=== PATIENT | female | born 1955 | race Caucasian/White ===

== ENCOUNTER → 2018-02-12 10:32 | Outpatient (CLI) | payer MEDICARE, MEDICAID, SELFPAY | PROVIDERS: Visit Provider Family Medicine | DX: R35.8 Other polyuria (principal) | CPT/HCPCS: 87086 ==

== ENCOUNTER 2018-04-27 13:10 | Emergency (ER) | payer MEDICARE, MEDICAID, SELFPAY ==
[2018-04-27 13:11] VITALS: BP 120/80; PULSE 84; RESP 16; TEMP 36; O2SAT 97; BMI 34.9
--- NOTE | 2018-04-27 13:54 | RAD_ITS ---
STUDY: X-RAY CHEST REASON FOR EXAM: Female, 62 years old. Cough. TECHNIQUE: PA and lateral views of the chest. COMPARISON: 25 Apr 2016 FINDINGS: The lungs are clear and expanded. There is no demonstrated pleural abnormality. Normal size heart. Normal mediastinum and jennifer. Normal visualized pulmonary arteries. Normal visualized aortic arch and descending thoracic aorta. Normal visualized thoracic spine. Normal visualized ribs, clavicles, and shoulders. There is no demonstrated abnormality of the visualized soft tissue structures of the upper abdomen. RAD/Chest PA and Lateral IMPRESSION: No evidence of acute cardiopulmonary process with no significant change from previous exam. Electronically Signed: Bart Oneil DO at 15:10 EDT , Service support ,
--- NOTE | 2018-04-27 13:55 | EKG12_ITS ---
Test Reason : SOB Blood Pressure : / mmHG Vent. Rate : 076 BPM Atrial Rate : 076 BPM P-R Int : 158 ms QRS Dur : 070 ms QT Int : 440 ms P-R-T Axes : 044 022 037 degrees QTc Int : 495 ms Normal sinus rhythm Low voltage QRS Nonspecific T wave abnormality Abnormal ECG Confirmed by YOLANDA PETERSON, CHRISSY ([id number]), multimedia editor AURE DIAZ ([id number]) on 04/30/2018 2:39:52 PM Referred By: KATHY Confirmed By:CHRISSY GUERRERO MD
--- NOTE | 2018-04-27 13:56 | ED.VIS.GEN ---
History of Present Illness Chief Complaint: Shortness of Breath Informant: Patient Onset: Days - 3 Context: Gradual Onset Timing: Continuous Quality: trouble breathing Location: chest Current Severity: Mild Maximum Severity: Mild Worsened by: coughing Relieved by: nothing Associated Symptoms: [employer] cough, hoarse of voice, mild sore/scratchy throat Narrative: History of chronic bronchitis. Started getting short of breath this morning, but the cough is been significant along with bronchospasm. - Past Medical History (1) Chronic bronchitis Status: Chronic (2) GERD (gastroesophageal reflux disease) Status: Chronic Past Medical History - Allergies and Home Meds Allergies/Adverse Reactions: Allergies amoxicillin trihydrate [From Augmentin] Allergy (Verified 04/03/17 10:57) Diarrhea codeine Allergy (Verified 04/03/17 10:57) Hives latex Allergy (Verified 04/03/17 10:57) Rash potassium clavulanate [From Augmentin] Allergy (Verified 04/03/17 10:57) Diarrhea niacin Adverse Reaction (Verified 04/03/17 10:57) Other Pukkqod-Nea-Shu Reductase Inhibitor Adverse Reaction (Verified 04/03/17 10:57) Other PAIN IN JOINTS Home Medications: Home Medications Medication Instructions Recorded Duloxetine Hcl [Cymbalta] 60 mg PO DAILY 03/18/14 Ibuprofen [Motrin] 600 mg PO PRN PRN 03/18/14 Cholecalciferol (Vitamin D3) 5,000 unit PO DAILY 03/26/17 [Vitamin D3] Cyanocobalamin [Vitamin B12] 1,000 mcg IM Q30D 03/26/17 Furosemide 40 mg PO DAILY 03/26/17 Hydrocodone/Acetaminophen [Vicodin 1 - 2 tablet PO Q4H PRN PRN #12 03/30/17 5-300 mg Tablet] tablet Lorazepam [Ativan] 0.5 mg PO BID PRN PRN 03/30/17 Naproxen [Naprosyn] 500 mg PO BID PRN #20 tablet 03/30/17 Omeprazole [Prilosec] 40 mg PO DAILY 03/30/17 Docusate Sodium [Colace] 100 mg PO DAILY PRN PRN 04/07/17 Lisinopril [Zestril] 20 mg PO DAILY 04/07/17 Albuterol Inhaler [Ventolin Hfa] 1 - 2 puff INHALATION Q4H PRN PRN 04/27/18 #1 inhaler Escitalopram Oxalate [Lexapro] 5 mg PO DAILY 04/27/18 Prednisone [Deltasone] 40 mg PO DAILY #10 tab 04/27/18 levoFLOXacin tablet [Levaquin] 500 mg PO DAILY #7 tab 04/27/18 Primary Care Physician: Ashli Snowden DO [Primary Care Provider] - Smoking Status: Former smoker Review of Systems All systems negative except as indicated General: Denies: Chills, Fever Eyes: Denies: Visual changes - bilaterally ENT: Reports: Sore throat, - - Hoarseness. Denies: Bilateral ear pain Respiratory: Reports: Dyspnea, Cough. Denies: Sputum, Orthopnea Gastrointestinal: Denies: Abdominal pain, Nausea, Vomiting, Diarrhea, Constipation, Melena, Hematochezia Musculoskeletal: Denies: Neck pain, Back pain, Swelling, Extremity Pain Physical Exam Vital Signs/Narrative: Vital Signs Temp Pulse Resp BP Pulse Ox 04/27/18 13:11 96.8 F L 84 16 120/80 97 Inital Vital Signs reviewed: Yes General: Well nourished, Well developed, - - Well-appearing no acute distress. Holding a drink, sitting on cot. Head: Normocephalic, Atraumatic Eyes: Perrl, EOMI ENT: Moist mucous membranes, No rhinorrhea, TM's clear, - - Mild diffuse posterior oropharyngeal erythema. No exudates or asymmetry.. Negative for: Sinus tenderness Neck: Supple, No lymphadenopathy, No JVD Cardiovascular: Regular rate, Regular rhythm Respiratory: No distress, CTA bilaterally, Chest nontender, Diminished - Throughout. Extremities: Nontender, No edema Skin: Normal color, No rash Neurological: Alert, Oriented x3, Cranial nerves II-XII grossly intact, Normal Strength, Normal Sensation, Normal Gait Psychological: Normal affect Diagnostic/Tx/Re-eval Clinical Impression(s) from Imaging Studies Chest X-Ray 04/27/18 13:54 IMPRESSION: No evidence of acute cardiopulmonary process with no significant change from previous exam. Electronically Signed: Bart Oneil DO at 15:10 EDT , Service support , - Rhythm Strip Rhythm Strip: Sinus Rhythm Rate: 75 Ectopy: None - EKG 1 Interpretation: Sinus Rhythm, No Acute Injury Pattern, Non-Specific ST Changes - Unchanged compared with prior, precordial leads - Medical Decision Making After breathing treatment patient is feeling improved with minimal chest discomfort now. Her EKG is nonspecific but unchanged and I do not think this is cardiac in etiology. With her chronic bronchitis, I think it would be reasonable to put her on broad-spectrum antibiotics to prevent superinfection and pneumonia. She does not have that now according to chest x-ray. Her vital signs are normal and she is not hypoxic. I think outpatient treatment is reasonable. Will place her on Levaquin, she was given an initial dose of prednisone here, and will also prescribe her that along with an albuterol inhaler to use as needed. She is comfortable with that plan. ED Disposition - Plan for ED Patient: Disposition: Home or Assisted Living Chief Complaint: Shortness of Breath Diagnosis: Acute exacerbation of chronic bronchitis Instructions: Acute Bronchitis, What Is Chronic Bronchitis? Prescriptions: Albuterol Inhaler [Ventolin Hfa] 1 - 2 puff INHALATION Q4H PRN PRN #1 inhaler PRN Reason: Wheezing levoFLOXacin tablet [Levaquin] 500 mg PO DAILY #7 tab Prednisone [Deltasone] 40 mg PO DAILY #10 tab Referrals: Ashli Snowden DO [Primary Care Provider] - 1 Week if not improving
--- NOTE | 2018-04-27 14:02 | ED.DCSUM_ITS ---
History of Present Illness Chief Complaint: Shortness of Breath Informant: Patient Onset: Days - 3 Context: Gradual Onset Timing: Continuous Quality: trouble breathing Location: chest Current Severity: Mild Maximum Severity: Mild Worsened by: coughing Relieved by: nothing Associated Symptoms: [employer] cough, hoarse of voice, mild sore/scratchy throat Narrative: History of chronic bronchitis. Started getting short of breath this morning, but the cough is been significant along with bronchospasm. - Past Medical History (1) Chronic bronchitis Status: Chronic (2) GERD (gastroesophageal reflux disease) Status: Chronic Past Medical History - Allergies and Home Meds Allergies/Adverse Reactions: Allergies amoxicillin trihydrate [From Augmentin] Allergy (Verified 04/03/17 10:57) Diarrhea codeine Allergy (Verified 04/03/17 10:57) Hives latex Allergy (Verified 04/03/17 10:57) Rash potassium clavulanate [From Augmentin] Allergy (Verified 04/03/17 10:57) Diarrhea niacin Adverse Reaction (Verified 04/03/17 10:57) Other Wgjahrt-Lyu-Tvk Reductase Inhibitor Adverse Reaction (Verified 04/03/17 10:57) Other PAIN IN JOINTS Home Medications: Home Medications Medication Instructions Recorded Duloxetine Hcl [Cymbalta] 60 mg PO DAILY 03/18/14 Ibuprofen [Motrin] 600 mg PO PRN PRN 03/18/14 Cholecalciferol (Vitamin D3) 5,000 unit PO DAILY 03/26/17 [Vitamin D3] Cyanocobalamin [Vitamin B12] 1,000 mcg IM Q30D 03/26/17 Furosemide 40 mg PO DAILY 03/26/17 Hydrocodone/Acetaminophen [Vicodin 1 - 2 tablet PO Q4H PRN PRN #12 03/30/17 5-300 mg Tablet] tablet Lorazepam [Ativan] 0.5 mg PO BID PRN PRN 03/30/17 Naproxen [Naprosyn] 500 mg PO BID PRN #20 tablet 03/30/17 Omeprazole [Prilosec] 40 mg PO DAILY 03/30/17 Docusate Sodium [Colace] 100 mg PO DAILY PRN PRN 04/07/17 Lisinopril [Zestril] 20 mg PO DAILY 04/07/17 Albuterol Inhaler [Ventolin Hfa] 1 - 2 puff INHALATION Q4H PRN PRN 04/27/18 #1 inhaler Escitalopram Oxalate [Lexapro] 5 mg PO DAILY 04/27/18 Prednisone [Deltasone] 40 mg PO DAILY #10 tab 04/27/18 levoFLOXacin tablet [Levaquin] 500 mg PO DAILY #7 tab 04/27/18 Primary Care Physician: Ashli Snowden DO [Primary Care Provider] - Smoking Status: Former smoker Review of Systems All systems negative except as indicated General: Denies: Chills, Fever Eyes: Denies: Visual changes - bilaterally ENT: Reports: Sore throat, - - Hoarseness. Denies: Bilateral ear pain Respiratory: Reports: Dyspnea, Cough. Denies: Sputum, Orthopnea Gastrointestinal: Denies: Abdominal pain, Nausea, Vomiting, Diarrhea, Constipation, Melena, Hematochezia Musculoskeletal: Denies: Neck pain, Back pain, Swelling, Extremity Pain Physical Exam Vital Signs/Narrative: Vital Signs Temp Pulse Resp BP Pulse Ox 04/27/18 13:11 96.8 F L 84 16 120/80 97 Inital Vital Signs reviewed: Yes General: Well nourished, Well developed, - - Well-appearing no acute distress. Holding a drink, sitting on cot. Head: Normocephalic, Atraumatic Eyes: Perrl, EOMI ENT: Moist mucous membranes, No rhinorrhea, TM's clear, - - Mild diffuse posterior oropharyngeal erythema. No exudates or asymmetry.. Negative for: Sinus tenderness Neck: Supple, No lymphadenopathy, No JVD Cardiovascular: Regular rate, Regular rhythm Respiratory: No distress, CTA bilaterally, Chest nontender, Diminished - Throughout. Extremities: Nontender, No edema Skin: Normal color, No rash Neurological: Alert, Oriented x3, Cranial nerves II-XII grossly intact, Normal Strength, Normal Sensation, Normal Gait Psychological: Normal affect Diagnostic/Tx/Re-eval Clinical Impression(s) from Imaging Studies Chest X-Ray 04/27/18 13:54 IMPRESSION: No evidence of acute cardiopulmonary process with no significant change from previous exam. Electronically Signed: Bart Oneil DO at 15:10 EDT , Service support , - Rhythm Strip Rhythm Strip: Sinus Rhythm Rate: 75 Ectopy: None - EKG 1 Interpretation: Sinus Rhythm, No Acute Injury Pattern, Non-Specific ST Changes - Unchanged compared with prior, precordial leads - Medical Decision Making After breathing treatment patient is feeling improved with minimal chest discomfort now. Her EKG is nonspecific but unchanged and I do not think this is cardiac in etiology. With her chronic bronchitis, I think it would be reasonable to put her on broad-spectrum antibiotics to prevent superinfection and pneumonia. She does not have that now according to chest x-ray. Her vital signs are normal and she is not hypoxic. I think outpatient treatment is reasonable. Will place her on Levaquin, she was given an initial dose of prednisone here, and will also prescribe her that along with an albuterol inhaler to use as needed. She is comfortable with that plan. ED Disposition - Plan for ED Patient: Disposition: Home or Assisted Living Chief Complaint: Shortness of Breath Diagnosis: Acute exacerbation of chronic bronchitis Instructions: Acute Bronchitis, What Is Chronic Bronchitis? Prescriptions: Albuterol Inhaler [Ventolin Hfa] 1 - 2 puff INHALATION Q4H PRN PRN #1 inhaler PRN Reason: Wheezing levoFLOXacin tablet [Levaquin] 500 mg PO DAILY #7 tab Prednisone [Deltasone] 40 mg PO DAILY #10 tab Referrals: Ashli Snowden DO [Primary Care Provider] - 1 Week if not improving
[2018-04-27 14:16] VITALS: PULSE 78; RESP 18
[2018-04-27] MEDS: Ipratropium/Albuterol Sulfate 3 ML AMPUL.NEB INHALATION (14:16)
[2018-04-27] MEDS: predniSONE 20 MG Tablet 60 MG PO (14:16)
[2018-04-27 16:04] VITALS: PULSE 89; RESP 22; O2SAT 97
== END 2018-04-27 16:05 | disposition home or self-care (01) ==
PROVIDERS: Emergency Provider Emergency Medicine; Family Provider Family Medicine; PCP Family Medicine
DX: J20.9 Acute bronchitis, unspecified (principal); J42 Unspecified chronic bronchitis; Z79.899 Other long term (current) drug therapy; K21.9 Gastro-esophageal reflux disease without esophagitis; Z87.891 Personal history of nicotine dependence
CPT/HCPCS: 71046; 93005; 94640; 99283

== ENCOUNTER → 2018-05-05 11:55 | Outpatient (CLI) | payer MEDICARE, MEDICAID, SELFPAY ==
--- NOTE | 2018-05-05 11:55 | DT_ITS ---
This patient was seen during an EMR downtime May 05, 2018 - May 12, 2018. This patient may have a combination of paper and electronic documentation or all paper documentation. All documentation is viewable within the e-chart portion of [facility] for each patient visit.
[2018-05-11 02:52] LABS: ALB/GLOB Ratio 1.1 RATIO (0.9-2.4); AST(SGOT) 14 U/L (15-37); Alanine Aminotransfer ALT/SGPT 22 U/L (13-56); Alkaline Phosphatase 106 U/L (45-117); BUN 13 mg/dL (7-18); BUN/Creat Ratio 12.5 RATIO (10-20); Calcium,Total 8.5 mg/dL (8.5-10.1); Creatinine, Serum 1.04 mg/dL (0.55-1.02); EST Glomerular Filtration Rate 57 mL/min (>60); Est Glom Filt Rate - Afr Amer 69 mL/min (>60); Globulin 3.5 g/dL (2.2-4.2); Glucose 92 mg/dL (74-106); Protein, Total 7.5 g/dL (6.4-8.2); Sodium Level 143 mmol/L (136-145)
[2018-05-11 02:53] LABS: Anion Gap 9 (5-15); Chloride 103 mmol/L (98-107); Potassium 3.6 mmol/L (3.5-5.1); T4 Free Direct 1.06 ng/dL (0.76-1.46); Thyroid Stim Hormone (TSH) 1.91 uIU/mL (0.358-3.74)
== END ==
PROVIDERS: Family Provider Family Medicine; PCP Family Medicine; Visit Provider Family Medicine
DX: R94.6 Abnormal results of thyroid function studies (principal); R73.03 Prediabetes; I10 Essential (primary) hypertension
CPT/HCPCS: 36415; 80053; 84439; 84443; 84480

== ENCOUNTER 2018-11-10 10:58 | Emergency (ER) | payer MEDICARE, MEDICAID, SELFPAY ==
[2018-11-10 11:03] VITALS: BP 133/93; PULSE 118; RESP 24; TEMP 36.9; O2SAT 100; BMI 34.7
--- NOTE | 2018-11-10 11:24 | ED.VISSUMM ---
- ER Visit Summary Date of Service: 11/10/18 Chief Complaint: Back injury History of Present Illness: The patient is a 63 F who presents for a back injury prior to arrival. Patient was wearing socks and her right foot slipped on the floor, causing her leg to slip outward from her. She almost fell but was able to catch herself on a handle on the wall. She felt a pop in her back and has been having low back pain radiating into the right buttock and leg down to the knee. Pain is in the thigh and the back of the leg. She denies any bowel or bladder incontinence or retention. No weakness or numbness in the leg. No prior history of back injury or back problems. Patient is on [place] as needed for arthritis. History of right total knee replacement, hypertension and GERD. Physical Examination: Vital signs: afebrile, hemodynamically stable, no hypoxia on room air General: well nourished, well developed, in no distress, able to ambulate down the patel without difficulty Skin: warm, dry, no rash, no pallor HEENT: normocephalic and atraumatic; PERRL, EOMI, moist mucous membranes Cardiovascular: regular rate and rhythm without murmurs, no peripheral edema, 2+ pulses all distal extremities Respiratory: No increased work of breathing, lungs are clear to auscultation bilaterally, no rales, rhonchi or wheezing Abdominal: Abdomen is soft, nontender with normoactive bowel sounds, no guarding or rebound, no masses Back: Midline tenderness in the thoracic or lumbar region, no deformities or step-offs, right paraspinal tenderness in the lumbar region and the buttock. Straight leg raise is negative bilaterally. MSK: Moves all extremities, no deformities, normal strength and symmetric Neuro: Awake and alert, oriented ?4. No facial droop, sensation and motor function intact and symmetric Test Results: [] Emergency Department Course and Treatment: Patient presents for a lumbosacral strain without any mechanism of injury or findings on examination that would be concerning for a vertebral fracture or spinal cord compression. Patient was given Flexeril and anti-inflammatories for pain. She was given a prescription for the same. We discussed that if she does take any [place], she is not to take it at the same time as the Flexeril. Patient will talk to her primary care doctor if she feels she needs further [place] for this acute back injury in the context of her chronic arthritic pain. Patient agreed with this plan was discharged home neurovascularly intact. Treatment Plan: [] Disposition: [] Impression: Right lumbosacral strain This note was generated with [employer] dictation software. It may contain incorrect words, spelling, and punctuation that were not noted in review of the chart prior to signing ED Disposition - Plan for ED Patient: Chief Complaint: Back Referrals: Ashli Snowden DO [Primary Care Provider] -
[2018-11-10] MEDS: Ibuprofen 600 MG Tablet PO (11:32)
[2018-11-10 11:50] VITALS: BP 129/112; PULSE 109; RESP 16; O2SAT 96
== END 2018-11-10 11:51 | disposition home or self-care (01) ==
LOC: ED 11:37
PROVIDERS: Emergency Provider Emergency Medicine; Family Provider Family Medicine; PCP Family Medicine
DX: S39.012A Strain of muscle, fascia and tendon of lower back, initial encounter (principal); W18.40XA Slipping, tripping and stumbling without falling, unspecified, initial encounter; Y93.9 Activity, unspecified; Y92.9 Unspecified place or not applicable; Y99.9 Unspecified external cause status; I10 Essential (primary) hypertension; M19.90 Unspecified osteoarthritis, unspecified site; K21.9 Gastro-esophageal reflux disease without esophagitis; Z79.52 Long term (current) use of systemic steroids; Z79.899 Other long term (current) drug therapy; Z96.651 Presence of right artificial knee joint
CPT/HCPCS: 99283

== ENCOUNTER → 2018-12-15 09:23 | Outpatient (CLI) | payer MEDICARE, MEDICAID, SELFPAY ==
[2018-12-15 12:04] LABS: Absolute Lymphocyte Count 2.33 X10^3/ul (0.83-4.51); Absolute Neutrophil Count 4.7 X10^3/uL (2.0-7.7); Basophil# 0.02 X10^3/uL; Basophil% 0.3 % (0-1); Eosinophil# 0.23 X10^3/uL; Hematocrit 44.9 % (37-47); Hemoglobin 14.7 g/dl (12.0-15.0); Lymphocyte # 2.33 X10^3/ul (4.0); Lymphocyte % 30.5 % (19-41); Mean Corp Hgb Conc 32.7 g/gl (32-36); Mean Corpuscular Hgb 31.1 pg (27.0-32.0); Mean Corpuscular Volume 95.1 fL (81-99); Mean Platelet Vol. 13.7 fl (6.2-12.0); Monocyte# 0.37 X10^3/uL; Monocyte% 4.8 % (0-10); Neutrophil # 4.67 X10^3/uL (2.7-7.7); Platelet Count 206 K/mm3 (150-450); RBC Distribution Width CV 14.7 % (11.6-14.6); RBC Distribution Width SD 50.6 fl (35.1-43.9); Red Blood Count 4.72 M/mm3 (4.2-5.4); White Blood Count 7.7 K/mm3 (4.4-11.0)
[2018-12-15 12:19] LABS: AST(SGOT) 16 U/L (15-37); Alanine Aminotransfer ALT/SGPT 23 U/L (13-56); Albumin, Serum 3.7 g/dL (3.2-5.0); Alkaline Phosphatase 112 U/L (45-117); Anion Gap 10 (5-15); BUN 16 mg/dL (7-18); BUN/Creat Ratio 15.5 RATIO (10-20); Calcium,Total 8.4 mg/dL (8.5-10.1); Chloride 105 mmol/L (98-107); Cholesterol 317 mg/dL (200); Creatinine, Serum 1.03 mg/dL (0.55-1.02); EST Glomerular Filtration Rate 57 mL/min (>60); Est Glom Filt Rate - Afr Amer 70 mL/min (>60); Globulin 3.7 g/dL (2.2-4.2); Glucose 91 mg/dL (74-106); High Density Lipoprotein 38 mg/dL; POSITIVE COUNT NO; POSITIVE DIFFERENTIAL NO; POSITIVE MORPHOLOGY NO; Potassium 3.6 mmol/L (3.5-5.1); Protein, Total 7.4 g/dL (6.4-8.2); Sodium Level 141 mmol/L (136-145); Thyroid Stim Hormone (TSH) 2.69 uIU/mL (0.358-3.74); Triglycerides 330 mg/dL; Very Low Density Lipoprotein 66 mg/dL (5-40)
[2018-12-15 12:30] LABS: Vitamin B12 > 2000 pg/mL (211-911); Vitamin D,25 Hydroxy 72.9 ng/mL (29.95-100.01)
== END ==
PROVIDERS: Family Provider Family Medicine; PCP Family Medicine; Visit Provider Family Medicine
DX: R73.03 Prediabetes (principal); E53.8 Deficiency of other specified B group vitamins; I10 Essential (primary) hypertension; R53.83 Other fatigue; E55.9 Vitamin D deficiency, unspecified; E78.5 Hyperlipidemia, unspecified; Z51.81 Encounter for therapeutic drug level monitoring
CPT/HCPCS: 36415; 80053; 80061; 82306; 82607; 84443; 85025

== ENCOUNTER → 2019-02-02 10:23 | Outpatient (CLI) | payer MEDICARE, MEDICAID, SELFPAY ==
--- NOTE | 2019-02-02 10:28 | STE_ITS ---
Reason For Study: Chest Pain Stress Results Protocol: Dobutamine Stress Echocardiogram Maximum Predicted HR: 157 bpm Target HR: 133 bpm % Maximum Predicted HR: 87 % DurationHeart Rate Stage (mm:ss) (bpm) BP Comment Baseline 73 128/77No Chest Pain DSE 10 MCG 3:27 87 136/85No Chest Pain DSE 20 MCG 3:00 122 134/69No Chest Pain DSE 30 MCG 2:13 136 136/70No Chest Pain Recovery 90 135/80No Chest Pain Stress Duration: 8:40 mm:ss Maximum Stress HR: 136 bpm METS: 1 Baseline Echocardiogram Findings Stress Echo Wall motion Data Resting WM Intermediate WM Stress WM Resting Wall Motion Wall Motion Stress No regional wall motion No regional wall motion abnormalities noted. abnormalities noted. Ejection Fraction 55 %. Ejection Fraction 70 %. Interpretation Summary Resting EKG demonstrates normal sinus rhythm with a rate of 83 bpm normal intervals are noted resting blood pressure 128/77 mmHg. Dobutamine was infused per usual protocol starting at 10 mcg/kg/min increasing in 3-minute increments to a peak of 30 mcg/kg/min. The maximum heart rate attained was 136 bpm which was 87% of maximum predicted heart rate. The patient maintained sinus rhythm throughout the recording at rest and during peak infusion there were nonspecific ST-T wave changes noted we did not meet the criteria for ischemia. The resting blood pressure was 128/77 with a peak blood pressure 143/79. Resting echocardiographic images demonstrated preserved ejection fraction of 55%. Dobutamine was infused per usual protocol and images were obtained at rest, low-dose, and peak dobutamine infusion. There was gradual increase in the ejection fraction to a peak of approximately 75 bpm. No wall motion abnormalities were noted. The test was terminated due to attainment of heart rate. Conclusion: Normal dobutamine echocardiographic stress image Preserved ejection fraction at rest and with dobutamine infusion Ordering Physician: Ashli Snowden Referring Physician: Dejuan Gomez Performed By: Renetta Lockhart RDCS
== END ==
PROVIDERS: Family Provider Family Medicine; PCP Family Medicine; Referring Provider Family Medicine; Visit Provider Family Medicine
DX: R07.9 Chest pain, unspecified (principal); I10 Essential (primary) hypertension
CPT/HCPCS: 93017; 93350; J7040; A4216

== ENCOUNTER → 2019-04-07 08:17 | Outpatient (CLI) | payer MEDICARE, MEDICAID, SELFPAY ==
--- NOTE | 2019-04-07 08:19 | NM_ITS ---
CLINICAL: 63-year-old female with reported history of painful bilateral knee arthroplasties operated approximately 10 years previous. LIMITED 99m Tc MDP THREE PHASE BONE SCINTIGRAPHY COMPARISON: None available FINDINGS: Following the intravenous administration of 24.4 mCi of 99m Tc MDP, three-phase bone acquisitions of the knee articulations reveal: 1. The flow and immediate static blood pool acquisitions demonstrate relatively symmetric arterial-venous phase distribution of the radiopharmaceutical to the bilateral knees. 2. Delayed images depict increased tracer concentration identified in the medial and lateral femoral and tibial components of the symptomatic right and left knee prostheses. 3. The remaining limited skeletal structures are scintigraphically unremarkable. NM/Bone Scan Three Phase IMPRESSION: 1. The increased radiopharmaceutical concentration visualized in the medial-lateral femoral and tibial components of the symptomatic right and left knee prostheses is consistent with a high likelihood of loosening in the setting of operative intervention > 2 years prior to the current presentation. If an infectious etiology is a diagnostic consideration, correlation with labeled leukocyte imaging is recommended. Electronically Signed: Rayo Nowak DO at 23:36 EDT Tel , Service support ,
== END ==
PROVIDERS: Family Provider Family Medicine; PCP Family Medicine; Referring Provider Orthopaedic Surgery Hand Surgery; Visit Provider Orthopaedic Surgery Hand Surgery
DX: Z96.653 Presence of artificial knee joint, bilateral (principal)
CPT/HCPCS: 78315

== ENCOUNTER → 2019-05-05 11:29 | Outpatient (CLI) | payer MEDICARE, MEDICAID, SELFPAY ==
[2019-05-05 15:55] LABS: Hemoglobin A1c 6.2 % (4.2-6.3)
[2019-05-05 17:41] LABS: ALB/GLOB Ratio 0.9 RATIO (0.9-2.4); AST(SGOT) 24 U/L (15-37); Alanine Aminotransfer ALT/SGPT 47 U/L (13-56); Albumin, Serum 3.5 g/dL (3.2-5.0); Alkaline Phosphatase 95 U/L (45-117); Anion Gap 8 (5-15); BUN 17 mg/dL (7-18); BUN/Creat Ratio 15.2 RATIO (10-20); Calcium,Total 8.6 mg/dL (8.5-10.1); Chloride 106 mmol/L (98-107); Cholesterol 247 mg/dL (200); Creatinine, Serum 1.12 mg/dL (0.55-1.02); EST Glomerular Filtration Rate 52 mL/min (>60); Est Glom Filt Rate - Afr Amer 63 mL/min (>60); Globulin 3.7 g/dL (2.2-4.2); Glucose 101 mg/dL (74-106); High Density Lipoprotein 31 mg/dL; Potassium 3.9 mmol/L (3.5-5.1); Protein, Total 7.2 g/dL (6.4-8.2); Sodium Level 142 mmol/L (136-145); Thyroid Stim Hormone (TSH) 1.42 uIU/mL (0.358-3.74); Triglycerides 286 mg/dL; Very Low Density Lipoprotein 57 mg/dL (5-40)
== END ==
PROVIDERS: Family Provider Family Medicine; PCP Family Medicine; Visit Provider Family Medicine
DX: I10 Essential (primary) hypertension (principal); E78.5 Hyperlipidemia, unspecified; R73.03 Prediabetes; E03.9 Hypothyroidism, unspecified
CPT/HCPCS: 36415; 80053; 80061; 83036; 84443

== ENCOUNTER → 2019-09-03 13:14 | Outpatient (CLI) | payer MEDICARE, MEDICAID, SELFPAY ==
[2019-09-03 15:56] LABS: Absolute Lymphocyte Count 2.37 X10^3/uL (0.83-4.51); Absolute Neutrophil Count 5.1 X10^3/uL (2.0-7.7); Basophil# 0.04 X10^3/uL; Basophil% 0.5 % (0-1); Eosinophil# 0.17 X10^3/uL; Eosinophils% 2.1 % (0-5); Hematocrit 46.6 % (37-47); Hemoglobin 15.3 g/dL (12.0-15.0); Lymphocyte # 2.37 X10^3/ul (4.0); Lymphocyte % 29.6 % (19-41); Mean Corp Hgb Conc 32.8 g/dL (32-36); Mean Corpuscular Hgb 30.5 pg (27.0-32.0); Mean Platelet Vol. 12.7 fl (6.2-12.0); Monocyte# 0.25 X10^3/uL; Monocyte% 3.1 % (0-10); NRBC Flagged by Analyzer 0 % (0-5); Neutrophil # 5.13 X10^3/uL (2.7-7.7); Platelet Count 229 K/mm3 (150-450); RBC Distribution Width CV 14.4 % (11.6-14.6); RBC Distribution Width SD 48.5 fl (35.1-43.9); Red Blood Count 5.01 M/mm3 (4.2-5.4)
[2019-09-03 18:59] LABS: AST(SGOT) 39 U/L (15-37); Alanine Aminotransfer ALT/SGPT 169 U/L (13-56); Albumin, Serum 3.9 g/dL (3.2-5.0); Alkaline Phosphatase 164 U/L (45-117); Anion Gap 7 (5-15); BUN 16 mg/dL (7-18); BUN/Creat Ratio 13.7 RATIO (10-20); Calcium,Total 9.2 mg/dL (8.5-10.1); Chloride 107 mmol/L (98-107); Creatinine, Serum 1.17 mg/dL (0.55-1.02); EST Glomerular Filtration Rate 50 mL/min (>60); Est Glom Filt Rate - Afr Amer 60 mL/min (>60); Free T3 2.6 pg/mL (2.18-3.98); Globulin 4.1 g/dL (2.2-4.2); Glucose 89 mg/dL (74-106); Lipase 119 U/L (73-393); Magnesium 2.5 mg/dL (1.6-2.6); Potassium 3.6 mmol/L (3.5-5.1); Sodium Level 140 mmol/L (136-145); T4 Free Direct 0.87 ng/dL (0.76-1.46); Thyroid Stim Hormone (TSH) 1.57 uIU/mL (0.358-3.74); Uric Acid 5.8 mg/dL (2.6-6.0)
== END ==
PROVIDERS: Family Provider Family Medicine; PCP Family Medicine; Visit Provider Family Medicine
DX: R10.9 Unspecified abdominal pain (principal); M10.9 Gout, unspecified; R11.0 Nausea; F41.9 Anxiety disorder, unspecified; Z51.81 Encounter for therapeutic drug level monitoring
CPT/HCPCS: 36415; 80053; 83690; 83735; 84439; 84443; 84481; 84550; 85025

== ENCOUNTER → 2019-09-12 08:38 | Outpatient (CLI) | payer MEDICARE, MEDICAID, SELFPAY ==
--- NOTE | 2019-09-12 08:41 | US_ITS ---
STUDY: ABDOMINAL ULTRASOUND - RIGHT UPPER QUADRANT REASON FOR VISIT: Female, 64 years old right upper quadrant pain TECHNIQUE: Ultrasound evaluation of the right upper quadrant was performed with real-time and static campbell-scale imaging. TECHNICAL QUALITY: Adequate. COMPARISON: None. FINDINGS: Liver: The liver measures 16.5 cm. There is increased echogenicity consistent with fatty infiltration. The bile ducts are within normal limits. There is hepatic color flow. The direction of portal flow is hepatopetal. There is no demonstrated mass lesion. Gallbladder: Normal distended gallbladder. The gallbladder wall measures 2 mm. There is a positive sonographic Lopes's sign. There is no pericholecystic fluid. There is a small amount of echogenic gravel in the gallbladder. Common Bile Duct (C.B.D.): The common bile duct measures 3.3 mm. Pancreas: Pancreatic tail was obscured by bowel gas. The body and head appeared within normal limits. There is normal echogenicity of the pancreas. There is no demonstrated pancreatic mass or cyst. Right Kidney: Normal size of the right kidney. The right kidney measures 10.9 x 4.7 x 5.3 cm. Normal renal cortex. The right cortex measures 2.0 cm. There is no demonstrated renal mass or cyst. There is no right hydronephrosis. US/Abdomen Limited IMPRESSION: Small amount of echogenic gravel seen in the gallbladder. A positive Lopes's sign was elicited as per orthotics prosthetics technician. The pancreatic tail was obscured by bowel gas. There is increased hepatic echogenicity suggestive of steatosis. Electronically Signed: Bridger Singh MD at 16:55 EDT , Service support ,
== END ==
PROVIDERS: Family Provider Family Medicine; PCP Family Medicine; Referring Provider Family Medicine; Visit Provider Family Medicine
DX: R10.11 Right upper quadrant pain (principal)
CPT/HCPCS: 76705

== ENCOUNTER 2019-09-16 06:17 | Day surgery (SDC) | payer MEDICARE, MEDICAID, SELFPAY ==
[2019-09-15 13:51] VITALS: BMI 34.7
[2019-09-16] VITALS (8 sets, daily range): BP systolic 94–117; BP diastolic 56–73; PULSE 85–102; RESP 18–20; TEMP 36.7–37.3; O2SAT 92–97; BMI 36.6
[2019-09-16] MEDS: Lactated Ringers 1,000 ML 100 ML IV (07:00)
--- NOTE | 2019-09-16 07:30 | EGD_PTH ---
PATIENT: SHANE CRUZ LOC: [facility] U#:[id number] AGE/SX: 64/F ROOM: RE09/16/[address]: Dr. Elsi Schultz MD : 1955 BED: DIS: 09/16/2019 SPEC #: [id number] RECD: 09/16/19 07:30 STATUS: DONAVAN PABLO #: [id number] ELENO: 09/16/19 07:[address]: Elsi Schultz DEPT: SURGICAL PATHOLOGY RECD BY: Buddy Hylton ENTERED: 09/16/19 13:36 SP TYPE: EGD BIOPSY MARGARITA DR: Dr. Ashli Snowden DO Tissues: A - Gastric mucous membrane B - Gastric mucous membrane Procedures: Surgery Specimen Level IV HEADER OPERATION: EGD ([facility] [place]) PRE-OP DIAGNOSIS: Nausea, LUQ pain, epigastric pain TISSUE SUBMITTED: A - Antral biopsy for H. pylori and pathology, B - GE junction biopsy MICROSCOPIC DIAGNOSIS A. Gastric antrum, biopsy: Mild chronic gastritis. See comment. B. Gastroesophageal junction, biopsy: Gastric mucosa with mild chronic inflammation. See comment. AM:estrellita 09/17/19 COMMENT A. The results of immunohistochemistry for Helicobacter pylori will be reported separately ([id number]). B. Squamous and/or junctional mucosa is not represented in the biopsy. Clinical correlation is suggested. MICROSCOPIC DESCRIPTION Slides are reviewed. GROSS DESCRIPTION A - Received in fixative is one container labeled with the patient's name and designated antral biopsy. The specimen consists of one irregular fragment of light daniels soft tissue that measures 0.3 x 0.3 x 0.1 cm. The specimen is totally submitted in one cassette. B - Received in fixative is one container labeled with the patient's name and designated GE junction biopsy. The specimen consists of one irregular fragment of light daniels soft tissue that measures 0.5 x 0.3 x 0.1 cm. The specimen is totally submitted in one cassette. / SJ:estrellita 09/16/19 TC:3 [facility]: [id number] x2
--- NOTE | 2019-09-16 07:30 | IMM_PTH ---
PATIENT: SHANE CRUZ LOC: EN U#:[id number] AGE/SX: 64/F ROOM: RE09/16/[address]: Dr. Elsi Schultz MD : 1955 BED: DIS: 09/16/2019 SPEC #: [id number] RECD: 09/16/19 13:45 STATUS: DONAVAN REDiamond #: [id number] ELENO: 09/16/19 07:[address]: Elsi Schultz DEPT: IMMUNOHISTOCHEMISTRY RECD BY: Alejandra Freedman ENTERED: 09/16/19 13:45 SP TYPE: IMMUNO OTHR DR: Dr. Ashli Snowden DO Tissues: Stomach, NOS Procedures: H Pylori (initial) PHYSICIAN & INSTITUTION [place] [id number] SPECIMEN INFORMATION: Tissue Source: A - Antral biopsy Clinical Info: Nausea, LUQ pain, epigastric pain Specimen Number: [id number] CPT code: 83679 METHODOLOGY: Deparaffinized sections of prefer/formalin-fixed tissue or PAP/DQ stained slides are incubated with monoclonal/polyclonal antibodies/oligonucleotide probes. Localization is made via biotin free immunoperoxidase method. Appropriate controls are performed and reacted as expected. Results on target cell population are indicated in the following table: RESULTS: ANTIBODY / CLONE RESULT Block A H Pylori (polyclonal) negative These tests were developed and their performance characteristics determined by [facility]. They may not have been cleared or approved by the U.S. Food and Drug Administration. The FDA has determined that such clearance or approval is not necessary. INTERPRETATION: A. Antral biopsy: Negative for Helicobacter pylori organisms. AM:estrellita 09/17/19
--- NOTE | 2019-09-16 07:35 | PCM.HP.BLA ---
History and Physical Date of Admission: 09/16/19 Date of Service: 09/15/19 MR#: [id number] Acct: [id number] Name: SHANE CRUZ Rep #: [id number] : 1955 Provider: Elsi Schultz MD Age/Sex: 64/F Location: [facility] Status: Signed with Addenda Intake Vital Signs 09/15/19 Body Mass Index (BMI) 34.7 09/15/19 Height 5 ft 2 in 09/15/19 Weight: 200 lb 09/15/19 Body Mass Index (BMI) 36.6 09/15/19 Blood Pressure 110/73 09/15/19 Blood Pressure Location Rt brachial 09/15/19 Respiratory Rate 16 09/15/19 Pulse Rate 100 09/15/19 Pulse Source Monitor 09/15/19 Temperature 99.6 F H 09/15/19 Pulse Ox 97 09/15/19 Oxygen Delivery Method room air Intake Visit Reasons: Nausea/Abd Pain poss EGD Chief Complaint: antibiotics Allergies amoxicillin trihydrate [From Augmentin] Allergy (Verified 11/10/18 10:59) Diarrhea codeine Allergy (Verified 11/10/18 10:59) Hives latex Allergy (Verified 11/10/18 10:59) Rash potassium clavulanate [From Augmentin] Allergy (Verified 11/10/18 10:59) Diarrhea niacin Adverse Reaction (Verified 11/10/18 10:59) Other Caxuuho-Szr-Dow Reductase Inhibitor Adverse Reaction (Verified 11/10/18 10:59) Other Medications Duloxetine Hcl [Cymbalta] 60 mg PO DAILY 03/18/14 [History Confirmed 09/15/19] Cholecalciferol (Vitamin D3) [Vitamin D3] 5,000 unit PO DAILY 03/26/17 [History Confirmed 09/15/19] Cyanocobalamin [Vitamin B12] 1,000 mcg IM Q30D 03/26/17 [History Confirmed 09/15/19] Furosemide 40 mg PO DAILY 03/26/17 [History Confirmed 09/15/19] Hydrocodone/Acetaminophen [Vicodin 5-300 mg Tablet] 1 - 2 tab PO Q4H PRN PRN #12 tab 03/30/17 [Rx Confirmed 09/15/19] Lorazepam [Ativan] 0.5 mg PO BID PRN PRN 03/30/17 [History Confirmed 09/15/19] Docusate Sodium [Colace] 100 mg PO DAILY PRN PRN 04/07/17 [History Confirmed 09/15/19] Lisinopril [Zestril] 20 mg PO DAILY 04/07/17 [History Confirmed 09/15/19] Prednisone [Deltasone] 40 mg PO DAILY #10 tab 04/27/18 [Rx Confirmed 11/10/18] Ibuprofen 600 mg PO 4X/DAY PRN #30 tab 11/10/18 [Rx Confirmed 09/15/19] cycloBENZAPRine HCl [Flexeril] 5 mg PO TID PRN PRN #15 tab 11/10/18 [Rx Confirmed 09/15/19] albuterol sulfate HFA 90 mcg/actuation aerosol inhaler 1 puff INHALATION Q6H 09/15/19 [History Confirmed 09/15/19] colchicine 0.6 mg tablet PO #70 tab 09/15/19 [History Confirmed 09/15/19] ezetimibe 10 mg tablet 10 mg PO DAILY 09/15/19 [History Confirmed 09/15/19] pantoprazole 20 mg tablet,delayed release 40 mg PO DAILY #60 tab 09/15/19 [Rx Confirmed 09/15/19] PFSH Medical History Hemorrhoids (Acute) Constipation (Acute) Diarrhea (Acute) Nausea (Acute) Abdominal pain (Acute) SOB (shortness of breath) (Acute) Arthritis (Acute) Gout (Acute) Venous stasis dermatitis (Acute) BRANDI positive (Acute) Osteoarthritis (Acute) Septic arthritis of interphalangeal joint of toe of right foot (Acute) Diverticulitis (Acute) Hypertension (Chronic) Anxiety (Acute) Depression (Acute) Chronic bronchitis (Chronic) GERD (gastroesophageal reflux disease) (Chronic) Surgical History Hx of foot surgery (Acute) Hx of hysterectomy (Acute) History of bilateral knee replacement (Acute) Hx of shoulder surgery (Acute) Family History (Updated 09/15/19 @ 13:38 by Deanna Foster) Mother Colon cancer CVA (cerebral vascular accident) Father Heart disease Hypertension High cholesterol Social History (Updated 09/15/19 @ 14:24 by Elsi Schultz MD) Smoking Status: Former smoker second hand exposure: No alcohol intake: current alcohol intake frequency: a few times a month substance use type: does not use caffeine: Yes what type of physical activity do you participate in: none frequency: does not exercise HPI HPI HPI: SHANE CRUZ, is a 64 F who presents to the office today for HPI HPI HPI: SHANE CRUZ, is a 64 F who presents to the office today for nausea, abdominal cramping. Patient states that she will have nausea when she wakes up in the morning and throughout the day for about the last 3 months. She also admits to bloating and increase gas. Patient states she will have epigastric pain with the nausea as well, patient may states that the pain could be worse after eating. Patient also has lower back ache on the right along with occasional back spasms (patient compares pain to a runner's side cramp, either side) and also states she has abdominal cramping in the lower abdomen bilaterally, patient cannot say when she gets the lower abdominal cramping whether is related to when she eats or not. Patient also states she is been having some chills at home has not took her temperature, patient's temperature today is 99.6. There was a question whether patient has celiac disease however she has never been tested and she occasionally stays gluten-free but not 100%. Patient had an ultrasound which showed an gallbladder wall of 2 mm, normal common bile duct, no pericholecystic fluid, fatty liver. Patient's mother was diagnosed with colon cancer age 75. Patient's last colonoscopy was about [address] Wang per PCPs notes showed diverticulosis and patient was diagnosed with IBS. Patient denies any dysuria states she has bowel movements daily she does take a stool softener daily. Patient says she has occasional blood on the toilet paper due to her hemorrhoids which she has had ever since . ROS General General: Yes weight change and fatigue Cardio Cardiovascular: No chest pain Resp Respiratory: Yes shortness of breath, No sleep apnea, No cough, No COPD Gastro Gastrointestinal: Yes abdominal pain, Yes nausea or vomiting (no vomiting), Yes diarrhea, Yes constipation, No blood in stool, No acid reflux, Yes hemorrhoids, No ulcers, Yes gallbladder problem, No black,tarry stools Physical Exam Respiratory: Normal air movement Cardiac: Regular rate Gastrointestinal: Abdomen soft, nondistended, tender to palpation in the epigastric and left upper quadrant, no peritoneal signs. Assessment & Plan Problems 1. Nausea R11.0 2. LUQ pain R10.12 3. Epigastric pain R10.13 4. Elevated LFTs R94.5 5. Steatosis of liver K76.0 6. History of alcohol abuse F10.11 7. Gallbladder sludge K82.8 Plan Patient's nausea will happen before she ever eats and throughout the day. Patient also states she has discomfort across her upper abdomen which on exam is mostly in the left upper quadrant and epigastric. Patient has been on omeprazole 40 mg daily for about 4 years. Patient is unsure if it has been doing anything. Patient states she used to cough more but that has improved since starting the omeprazole. We will plan to change patient to Protonix 40 mg p.o. daily. Patient does take ibuprofen but usually only 600 mg once a day. Discussed with patient I doubt her lower abdominal cramping bilaterally is due to the same source. Patient also states she is been having some chills at home her temperature in the office was 99.6-unsure etiology. Patient's ultrasound of the gallbladder did show some echogenic sludge, normal gallbladder wall, no pericholecystic fluid, normal bile duct, and the fatty liver. Patient's pain is not consistent with gallbladder disease currently appears to be more likely due to gastritis as patient also had a lot of recent stress with multiple deaths in her family recently. Discussed with patient I would not currently recommend HIDA scan with CCK will await EGD results and see if Protonix helps before checking a HIDA scan. However patient's liver function enzymes are elevated for the AST, ALT, alk phos with a normal total bilirubin. Patient did give a history of heavy alcohol abuse until about a year ago she states she could drink a sixpack to a 12 pack a day since she was at least 21 and actually started drinking at age 14. Patient's previous liver functions were within normal range. Discussed patient I do not believe that the increased liver functions are due to her gallbladder and this may be due to either damage from her alcohol abuse or even her fatty liver. I have discussed the above with the patient. I have offered the patient EGD for evaluation. Also do a biopsy check for celiac I have explained the risks/benefits of the procedure and described the procedure. I have discussed the risks with the patient, including but not limited to: infection, bleeding, perforation of the GI tract requiring emergency surgery, inability to complete the procedure, injury to any internal organs, complications of anesthesia, etc. - the patient understands and agrees to proceed. I have answered all the patient's questions to the patient's satisfaction and the patient has no further questions. Greater than 50% of direct patient contact was spent in counseling or coordination of care. I spent 45 minutes counseling the patient and coordinating care. Elsi Schultz M.D. Pager: [phone] [facility] [address] [place] [address], [address] [place] [address] Office: [phone] Medications New: pantoprazole 40 mg (2 x 20 mg) PO DAILY 60 tabs 3RF Discontinued: omeprazole Discontinued Reason: Discontinued by PCP/other physicians 40 mg PO DAILY Plan Detail Follow Up We will schedule EGD Coding Level of Care Code Off vis,new,level 4 Diagnoses Nausea R11.0 LUQ pain R10.12 Epigastric pain R10.13 Elevated LFTs R94.5 Steatosis of liver K76.0 History of alcohol abuse F10.11 Gallbladder sludge K82.8 09/15/19 [id number] <Electronically signed by Elsi Schultz MD> Date Elsi Schultz MD
--- NOTE | 2019-09-16 07:58 | OP.ENDO_ITS ---
09/16/2019 Ashli Snowden [address] [place] [address] Re : Upper GI endoscopy procedure for Bridgett Armijo Dear Dr. Snowden This procedure was performed on Monday, September 16, 2019. My impressions and recommendations are as follows: Impressions : - Z-line irregular, 40 cm from the incisors. Biopsied. - Erythematous mucosa in the antrum. Biopsied. - Normal examined duodenum. - Bilious gastric fluid. - Bile gastritis. Recommendations : - Discharge patient to home. - Resume previous diet. - Use sucralfate tablets 1 gram PO QID for 1 month. - Use Protonix (pantoprazole) 40 mg PO daily. - Continue present medications. My findings are described in the full procedure note, which is enclosed. If I can be of further assistance, please feel free to contact me at Doctor phone number(s): , Work: . Sincerely, MD Elsi Sellers MD 09/16/2019 7:57:54 AM This report has been signed electronically.
[2019-09-17 16:08] LABS: Endomysial Antibody IgA Negative (Negative)
[2019-09-17 16:47] LABS: Deamidated Gliadin IgA 6 units (0-19); Deamidated Gliadin IgG 3 units (0-19); Immunoglobulin A 94 mg/dL (87-352); t-Transglutaminase IgA 6 U/mL (0-3)
== END 2019-09-16 08:48 | disposition home or self-care (01) ==
LOC: EN 06:18 → AC 06:19
PROVIDERS: Family Provider Family Medicine; PCP Family Medicine; Referring Provider Family Medicine; Visit Provider Surgery
PROC: 0DJ08ZZ Inspection of Upper Intestinal Tract, Via Natural or Artificial Opening Endoscopic (ICD-10-PCS; CPT 43235; principal; 2019-09-16 07:25)
DX: K29.50 Unspecified chronic gastritis without bleeding (principal); K58.9 Irritable bowel syndrome, unspecified; K21.9 Gastro-esophageal reflux disease without esophagitis; K64.9 Unspecified hemorrhoids; K59.00 Constipation, unspecified; I10 Essential (primary) hypertension; K76.0 Fatty (change of) liver, not elsewhere classified; J42 Unspecified chronic bronchitis; M19.90 Unspecified osteoarthritis, unspecified site; M10.9 Gout, unspecified; F32.9 Major depressive disorder, single episode, unspecified; F41.9 Anxiety disorder, unspecified; Z91.040 Latex allergy status; Z88.8 Allergy status to other drugs, medicaments and biological substances; Z88.0 Allergy status to penicillin; Z79.899 Other long term (current) drug therapy; Z96.653 Presence of artificial knee joint, bilateral; Z87.891 Personal history of nicotine dependence
CPT/HCPCS: 43239; 36415; 82784; 83516; 86255; 88305; 88342; J7120; J2405

== ENCOUNTER → 2019-10-21 10:01 | Outpatient (CLI) | payer MEDICARE, MEDICAID, SELFPAY ==
[2019-09-16 06:47] VITALS: BMI 36.6
[2019-10-21 12:57] LABS: ALB/GLOB Ratio 1.1 RATIO (0.9-2.4); AST(SGOT) 18 U/L (15-37); Alanine Aminotransfer ALT/SGPT 28 U/L (13-56); Albumin, Serum 3.9 g/dL (3.2-5.0); Alkaline Phosphatase 116 U/L (45-117); Anion Gap 9 (5-15); BUN 12 mg/dL (7-18); BUN/Creat Ratio 10.6 RATIO (10-20); Calcium,Total 8.6 mg/dL (8.5-10.1); Chloride 103 mmol/L (98-107); Creatinine, Serum 1.13 mg/dL (0.55-1.02); EST Glomerular Filtration Rate 52 mL/min (>60); Est Glom Filt Rate - Afr Amer 62 mL/min (>60); Globulin 3.6 g/dL (2.2-4.2); Glucose 116 mg/dL (74-106); Potassium 3.1 mmol/L (3.5-5.1); Protein, Total 7.5 g/dL (6.4-8.2); Sodium Level 140 mmol/L (136-145)
== END ==
PROVIDERS: Family Provider Family Medicine; PCP Family Medicine; Visit Provider Family Medicine
DX: R74.8 Abnormal levels of other serum enzymes (principal)
CPT/HCPCS: 36415; 80053

== ENCOUNTER → 2019-10-26 12:27 | Outpatient (CLI) | payer MEDICARE, MEDICAID, SELFPAY ==
[2019-09-15 13:51] VITALS: BMI 34.7
[2019-09-16 06:47] VITALS: BMI 36.6
--- NOTE | 2019-10-26 12:32 | NM_ITS ---
CLINICAL: 64-year-old female reported history of postprandial abdominal pain. RADIONUCLIDE HEPATOBILIARY SCINTIGRAPHY COMPARISON: Abdominal ultrasound report 09/12/2019, previous CCK hepatobiliary scintigraphy study report dated 05/11/2014 FINDINGS: Following the intravenous administration of 5.4 mCi of 99m Tc Mebrofenin, hepatobiliary images reveal: 1. Relatively prompt and homogeneous radiopharmaceutical concentration is noted by a normal sized liver. No parenchymal defects are identified. 2. Gallbladder activity is identified at 15 minutes post radiopharmaceutical administration. 3. Small intestinal tract is observed at 30 minutes following tracer injection. 4. Washout of the radiopharmaceutical by the hepatic parenchyma occurs in a normal fashion on qualitative inspection. Cholecystokinin (0.02 ug/kg) was administered intravenously over a 30-minute period. The post CCK gallbladder ejection fraction calculated at 20 minutes following Cholecystokinin administration was noted to be 52.0 % (normal greater than 35%). During 30 minutes of post CCK imaging, there is no scintigraphic evidence of reflux of the radiotracer into the common hepatic duct or refilling of the gallbladder. There is scintigraphic evidence of post CCK duodenal gastric reflux. NM/Hepatobilliary Img w/Pharm Int IMPRESSION: 1. A gallbladder ejection fraction calculated to be greater than 35% following the administration of Cholecystokinin makes the probability of functional hepatobiliary disease (gallbladder and/or sphincter of Oddi dyskinesia) and/or organic hepatobiliary disease (chronic acalculous cholecystitis and/or cystic duct syndrome) to be low. (Tracy Meredith et al, Journal of Nuclear Medicine 32:1695, 1990). 2. There is scintigraphic evidence of post CCK duodenal-gastric reflux as defined above. (Kanwal et al, Nucl Med Elise Manda Press pg. 35, 1980). Electronically Signed: Rayo Nowak DO at 14:59 EST Tel , Service support ,
== END ==
PROVIDERS: Family Provider Family Medicine; PCP Family Medicine; Referring Provider Family Medicine; Visit Provider Family Medicine
DX: R10.9 Unspecified abdominal pain (principal); R10.11 Right upper quadrant pain; K80.20 Calculus of gallbladder without cholecystitis without obstruction
CPT/HCPCS: 78227; A9537; J2805

== ENCOUNTER 2019-12-27 15:36 | Emergency (ER) | payer MEDICARE, MEDICAID, SELFPAY ==
[2019-09-16 06:47] VITALS: BMI 36.6
[2019-12-27 15:37] VITALS: BP 153/97; PULSE 97; RESP 16; TEMP 36.3; O2SAT 97; BMI 36.6
--- NOTE | 2019-12-27 15:48 | RAD_ITS ---
STUDY: X-RAY - RIGHT WRIST REASON FOR EXAM: Female, 64 years old. FELT A POP LATERAL HAND/WRIST YESTERDAY, SWELLING AND PAIN TODAY TECHNIQUE: 3 view(s) of the wrist were obtained. COMPARISON: None. FINDINGS: No acute fracture or dislocation. Remote injury of the ulnar styloid process. Age-related degenerative changes. No significant soft tissue swelling. RAD/Wrist min 3 Views IMPRESSION: No acute finding Electronically Signed: Beltran Davis DO at 16:59 EST Tel , Service support ,
--- NOTE | 2019-12-27 15:48 | RAD_ITS ---
STUDY: X-RAY - RIGHT HAND REASON FOR EXAM: Female, 64 years old. FELT A POP LATERAL HAND/WRIST YESTERDAY, SWELLING AND PAIN TODAY TECHNIQUE: 3 view(s) of the hand. COMPARISON: None. FINDINGS: Mild degenerative changes. No acute fracture or dislocation. No significant soft tissue swelling RAD/Hand Min 3 Views IMPRESSION: No acute findings Electronically Signed: Beltran Davis DO at 16:40 EST Tel , Service support ,
--- NOTE | 2019-12-27 15:51 | ED.VIS.UPPEX ---
History of Present Illness Chief Complaint: Upper Extremity Injury Informant: Patient Occurred: Yesterday Mechanism/Context: Injury Onset: Yesterday Context: Sudden Onset Timing: Continuous Narrative: Patient is a 64-year-old female presenting with injury to her right hand. Patient states she was using a dog brush and reaching for the release on it when she felt a popping sensation in her right hand. It seems to be centered around her second MCP joint. She has pain in her hand as well as her wrist. The pain is persisted today so she came in to be evaluated further. Patient does not take anything for the pain. She has pain with movement of her right index finger. She has some redness over the area of pain. She denies any other trauma or injury. She denies any other complaints at this time. Patient states she is especially concerned because she has a history of wrist fracture on that side. She is had multiple fractures in the past and is worried she might of broke something or done some serious damage. She follows with Dr. Corona, orthopedics. Past Medical History - Allergies and Home Meds Allergies/Adverse Reactions: Allergies amoxicillin trihydrate [From Augmentin] Allergy (Verified 10/22/19 09:00) Diarrhea codeine Allergy (Verified 10/22/19 09:00) Hives latex Allergy (Verified 10/22/19 09:00) Rash potassium clavulanate [From Augmentin] Allergy (Verified 10/22/19 09:00) Diarrhea niacin Adverse Reaction (Verified 10/22/19 09:00) Other Hiwzgbe-Glo-Pad Reductase Inhibitor Adverse Reaction (Verified 10/22/19 09:00) Other PAIN IN JOINTS Primary Care Physician: Ashli Snowden DO [Primary Care Provider] - Smoking Status: Former smoker Review of Systems General: Denies: Chills, Fever, Sweats Eyes: Denies: Visual changes - bilaterally, Diplopia ENT: Denies: Rhinorrhea, Sore throat Cardiovascular: Denies: Chest pain, Palpitations Respiratory: Denies: Dyspnea, Cough, Dyspnea on exertion Gastrointestinal: Denies: Abdominal pain, Nausea, Vomiting, Diarrhea, Melena, Hematochezia Genitourinary: Denies: Dysuria, Hematuria, Frequency Musculoskeletal: Reports: Swelling - Right hand, Extremity Pain - Right hand. Denies: Back pain Skin: Denies: Rash, Wounds Neurological: Denies: Headache, Weakness, Numbness Physical Exam Vital Signs/Narrative: Vital Signs Temp Pulse Resp BP Pulse Ox 12/27/19 15:37 97.4 F L 97 16 153/97 H 97 Inital Vital Signs reviewed: Yes Right Forearm: Negative for: Abrasion, Contusion, Deformity, Edema, Hematoma, Limited ROM Right Wrist: -. Negative for: Contusion, Deformity, Edema, Limited ROM Right Hand: Edema - Over second MCP, Limited ROM - Secondary to pain second MCP joint, - - Erythema over the dorsal aspect of the second MCP. Patient has normal strength with flexion extension at all phalanges. There is no associated warmth or fluctuance. Patient does have some pain with axial loading of the thumb at the anatomical snuffbox.. Negative for: Deformity Right Finger: Negative for: Contusion, Deformity, Edema, Hematoma, Limited ROM General: Well nourished, Well developed Head: Normocephalic, Atraumatic Eyes: Perrl, EOMI ENT: No Trauma, Moist Mucous Membranes Neck: Nontender, Full ROM Cardiovascular: Regular rate, Regular rhythm, No murmurs Respiratory: No distress, CTA bilaterally, Chest nontender Abdomen: Soft, Nontender, Nondistended, Normal bowel sounds Back: Nontender Skin: Normal color, No rash Neurological: Alert, Oriented x3, Cranial nerves II-XII grossly intact, Normal Strength, Normal Sensation Psychological: Normal affect Diagnostic/Tx/Re-eval Clinical Impression(s) from Imaging Studies Hand X-Ray 12/27/19 15:48 IMPRESSION: No acute findings Electronically Signed: Beltran Davis DO at 16:40 EST Tel , Service support , Wrist X-Ray 12/27/19 15:48 IMPRESSION: No acute finding Electronically Signed: Beltran Davis DO at 16:59 EST Tel , Service support , - Medical Decision Making She is evaluated for atraumatic pain of her left hand. Her pain is mostly over her second MCP but she does seem to have some tenderness in her anatomical snuffbox on the right. X-ray does not show any fracture. She does not have any obvious ligamentous or tendinous injury. Patient be placed in a thumb spica splint and to follow-up with orthopedist. She is neurovascularly intact. She is given Motrin in the ER for pain. She is counseled alternate Tylenol and ibuprofen as needed at home. Patient is counseled on signs and symptoms requiring return to the emergency room. Patient verbalizes agreement and understand this plan. Patient discharged home in stable and improved condition. ED Disposition - Plan for ED Patient: Disposition: Home or Assisted Living Diagnosis: Injury of right hand Referrals: Ashli Snowden DO [Primary Care Provider] - Nadya Corona DO [STAFF PHYSICIAN] - Additional Instructions: Your x-rays did not show any acute fracture. The exact cause of your pain is not clear today. It is possible you have a soft tissue injury. There does not seem to be any infection based on my physical exam. You be placed in a splint because you do have some pain at the base of your thumb. Please call your orthopedist on Saturday to be seen in about a week for recheck. Alternate Tylenol and ibuprofen at home as needed for pain. Return the emergency room with any worsening symptoms.
[2019-12-27] MEDS: Ibuprofen 600 MG Tablet PO (16:15)
--- NOTE | 2019-12-27 17:40 | ED.RN ---
DISCHARGE INSTRUCTIONS GIVEN TO AND REVIEWED WITH PATIENT, PATIENT DENIES QUESTIONS OR CONCERNS AND VOICES UNDERSTANDING OF DISCHARGE INSTRUCTIONS. PT AMBULATES OUT OF ROOM WITHOUT DIFFICULTY.
== END 2019-12-27 17:49 | disposition home or self-care (01) ==
PROVIDERS: Emergency Provider Emergency Medicine; PCP Family Medicine
DX: S69.91XA Unspecified injury of right wrist, hand and finger(s), initial encounter (principal); X58.XXXA Exposure to other specified factors, initial encounter; Y93.89 Activity, other specified; Z87.891 Personal history of nicotine dependence
CPT/HCPCS: 73110; 73130; 99283

== ENCOUNTER → 2020-05-23 10:03 | Outpatient (CLI) | payer MEDICARE, MEDICAID, SELFPAY ==
[2020-05-23 09:36] VITALS: BMI 36.6
--- NOTE | 2020-05-23 10:04 | RAD_ITS ---
STUDY: X-RAY - RIGHT HAND REASON FOR EXAM: Female, 65 years old. PAIN IN HAND AFTER WORKING WITH HANDS TECHNIQUE: 3 view(s) of the hand. COMPARISON: 12/27/2019 FINDINGS: Stable degenerative changes in the right hand, with polyarticular arthrosis most pronounced in the PIP and DIP joints of the second to the fifth fingers. No acute fracture or suspicious osseous lesion, there is an old ununited ulnar styloid fracture. RAD/Hand Min 3 Views IMPRESSION: Stable polyarticular arthrosis, predominately in the distal joints. No acute fracture or suspicious osseous lesion. No significant interval change Electronically Signed: German Griffiths MD at 11:10 EDT , Service support ,
== END ==
PROVIDERS: PCP Family Medicine; Referring Provider Physician Assistant; Visit Provider Physician Assistant
DX: M67.941 Unspecified disorder of synovium and tendon, right hand (principal); M79.641 Pain in right hand
CPT/HCPCS: 73130

== ENCOUNTER → 2020-05-31 07:20 | Outpatient (CLI) | payer MEDICARE, MEDICAID, SELFPAY ==
[2020-05-23 09:36] VITALS: BMI 36.6
--- NOTE | 2020-05-31 07:21 | MRI_ITS ---
STUDY: MRI RIGHT HAND REASON FOR EXAM: Female, 65 years old. Painful index finger extending down into RIGHT hand, swelling, Injury pushing object with finger, rt hand pain, tendon disorder TECHNIQUE: Standardized fat and water weighted pulse sequences were obtained in all 3 orthogonal planes. COMPARISON: X-ray 05/23/2020 FINDINGS: FIRST DIGIT: Normal visualized first metacarpus. Normal metacarpophalangeal joint. Normal interphalangeal joint. Normal proximal, and distal phalanges. Normal flexor and extensor tendons. There is no soft tissue abnormality. SECOND DIGIT: There is mild marrow edema of the neck and head of the second metacarpal bone and the base of the second proximal phalanx consistent with mild stress reaction or mild contusions. No definite fracture.. Normal metacarpophalangeal joint. Normal proximal and distal interphalangeal joints. Normal, middle and distal phalanges. Normal flexor and extensor tendons. There is also some edema of the fat volar to the neck of the second metacarpal bone.. THIRD DIGIT: Normal visualized third metacarpus. Normal metacarpophalangeal joint. Normal proximal and distal interphalangeal joints. Normal proximal, middle and distal phalanges. Normal flexor and extensor tendons. There is no soft tissue abnormality. FOURTH DIGIT: Normal visualized fourth metacarpus. Normal metacarpophalangeal joint. Normal proximal and distal interphalangeal joints. Normal proximal, middle and distal phalanges. Normal flexor and extensor tendons. There is no soft tissue abnormality. FIFTH DIGIT: Normal visualized fifth metacarpus. Normal metacarpophalangeal joint. Normal proximal and distal interphalangeal joints. Normal proximal, middle and distal phalanges. Normal flexor and extensor tendons. There is no soft tissue abnormality. Normal visualized thenar and hypothenar muscles. Normal lumbricalis and interosseous muscles. There are no solid, cystic or lipomatous masses. MRI/Upper Ext/No Jt/ wo IMPRESSION: Mild stress reaction or mild contusions of the distal second metacarpal bone and the base of the second proximal phalanx as well as some surrounding soft tissue edema but no internal derangement. Electronically Signed: Rayo Johnson MD at 8:50 EDT Tel , Service support ,
== END ==
PROVIDERS: PCP Family Medicine; Referring Provider Physician Assistant; Visit Provider Physician Assistant
DX: M67.941 Unspecified disorder of synovium and tendon, right hand (principal)
CPT/HCPCS: 73218

== ENCOUNTER → 2020-08-30 16:21 | Outpatient (CLI) | payer MEDICARE, MEDICAID, SELFPAY ==
[2020-01-07 08:20] VITALS: BMI 36.6
[2020-06-09 12:37] VITALS: BMI 36.6
--- NOTE | 2020-08-30 16:23 | BI_ITS ---
MAMMOGRAPHY - BILATERAL SCREENING REASON FOR EXAM: Female, 65 years old. Routine annual screening examination. PERTINENT HISTORY: Non-contributory. TECHNIQUE: Digital bilateral breast danielito (3D mammographic acquisition) in the CC and MLO projections. 2-D mediolateral oblique (MLO) and craniocaudad (CC) views of both breasts were obtained. CAD: Full Field Digital Mammography with Computer Added Detection was performed. COMPARISON: Comparison is made with prior study dated 08/27/2017 and 12/31/2014. FINDINGS: Breast Composition: There are scattered areas of fibroglandular density. There are no dominant masses or suspicious calcifications. Stable benign-appearing bilateral axillary lymph nodes. No other significant abnormalities are identified. There has been no significant change since the prior study. BI/SCREEN MAMM (CAD) W/DANIELITO BILAT IMPRESSION: Stable bilateral screening mammogram. Yearly follow-up mammogram recommended. (A) ASSESSMENT CATEGORY: BIRADS Category 2: Benign. A letter regarding these results will be sent to the patient by the facility within 30 days. Approximately 10% of breast cancers are not detected by mammography. A normal mammogram should not delay biopsy of a clinically suspicious abnormality. [id number] Electronically Signed: Gabriel Crisostomo, at 8:30 EDT , Service support ,
== END ==
PROVIDERS: PCP Family Medicine; Referring Provider Family Medicine; Visit Provider Family Medicine
DX: Z12.31 Encounter for screening mammogram for malignant neoplasm of breast (principal)
CPT/HCPCS: 77063; 77067

== ENCOUNTER → 2020-10-11 09:03 | Outpatient (CLI) | payer MEDICARE, MEDICAID, SELFPAY ==
[2020-06-09 12:37] VITALS: BMI 36.6
[2020-10-11 12:34] LABS: Absolute Lymphocyte Count 2.59 X10^3/uL (0.83-4.51); Absolute Neutrophil Count 4.5 X10^3/uL (2.0-7.7); Basophil# 0.03 X10^3/uL; Basophil% 0.4 % (0-1); Eosinophil# 0.26 X10^3/uL; Eosinophils% 3.4 % (0-5); Hematocrit 42.5 % (37-47); Hemoglobin 13.8 g/dL (12.0-15.0); Lymphocyte # 2.59 X10^3/ul (4.0); Lymphocyte % 33.5 % (19-41); Mean Corp Hgb Conc 32.5 g/dL (32-36); Mean Corpuscular Hgb 29.4 pg (27.0-32.0); Mean Corpuscular Volume 90.4 fL (81-99); Mean Platelet Vol. 13.2 fl (6.2-12.0); Monocyte# 0.32 X10^3/uL; Monocyte% 4.1 % (0-10); NRBC Flagged by Analyzer 0 % (0-5); Neutrophil # 4.52 X10^3/uL (2.7-7.7); Neutrophil % 58.3 % (47-70); Platelet Count 209 K/mm3 (150-450); RBC Distribution Width CV 14.5 % (11.6-14.6); RBC Distribution Width SD 47.9 fl (35.1-43.9); White Blood Count 7.7 K/mm3 (4.4-11.0)
[2020-10-11 13:26] LABS: AST(SGOT) 11 U/L (15-37); Alanine Aminotransfer ALT/SGPT 17 U/L (13-56); Albumin, Serum 3.5 g/dL (3.2-5.0); Alkaline Phosphatase 114 U/L (45-117); Anion Gap 6 (5-15); BUN 10 mg/dL (7-18); BUN/Creat Ratio 10.3 RATIO (10-20); Calcium,Total 8.8 mg/dL (8.5-10.1); Chloride 108 mmol/L (98-107); Cholesterol 246 mg/dL (200); Creatinine, Serum 0.98 mg/dL (0.55-1.02); EST Glomerular Filtration Rate 61 mL/min (>60); Est Glom Filt Rate - Afr Amer 74 mL/min (>60); Globulin 3.4 g/dL (2.2-4.2); Glucose 98 mg/dL (74-106); High Density Lipoprotein 36 mg/dL; Potassium 3.1 mmol/L (3.5-5.1); Protein, Total 6.9 g/dL (6.4-8.2); Sodium Level 142 mmol/L (136-145); Triglycerides 261 mg/dL; Very Low Density Lipoprotein 52 mg/dL (5-40)
== END ==
PROVIDERS: PCP Family Medicine; Visit Provider Family Medicine
DX: E78.5 Hyperlipidemia, unspecified (principal); R10.9 Unspecified abdominal pain; Z51.81 Encounter for therapeutic drug level monitoring
CPT/HCPCS: 36415; 80053; 80061; 85025

== ENCOUNTER 2021-02-02 12:00 | Outpatient (RCR) | payer MEDICARE, SELFPAY ==
[2020-06-09 12:37] VITALS: BMI 36.6
[2021-02-02] MEDS: COVID-19 VACC, MRNA(PFIZER)/PF 30 MCG/0.3 ML SYRINGE IM (08:41)
[2021-02-23] MEDS: COVID-19 VACC, MRNA(PFIZER)/PF 30 MCG/0.3 ML SYRINGE IM (08:14)
== END 2021-02-02 23:59 ==
LOC: IMMUN 12:00
PROVIDERS: PCP Family Medicine; Referring Provider Family Medicine; Visit Provider Family Medicine
DX: Z23 Encounter for immunization (principal)
CPT/HCPCS: 0001A; 0002A

== ENCOUNTER → 2021-02-21 11:57 | Outpatient (CLI) | payer MEDICARE, SELFPAY ==
[2020-06-09 12:37] VITALS: BMI 36.6
--- NOTE | 2021-02-21 11:59 | RAD_ITS ---
STUDY: X-RAY - LEFT SHOULDER REASON FOR EXAM: Female, 65 years old. left shoulder pain TECHNIQUE: 4 view(s) of the shoulder. COMPARISON: None. FINDINGS: Normal glenohumeral articulation. Normal acromioclavicular joint. Normal acromion. Normal humeral head and visualized proximal humerus. The soft tissue structures are unremarkable. There is no demonstrated fracture. Normal visualized pulmonary apex. RAD/Shoulder min 2 Views IMPRESSION: Normal x-ray examination of the shoulder. Electronically Signed: Gentry Velasco MD at 23:45 EDT , Service support ,
== END ==
LOC: MTRAD 11:58
PROVIDERS: PCP Family Medicine; Referring Provider Family Medicine; Visit Provider Family Medicine
DX: M25.512 Pain in left shoulder (principal)
CPT/HCPCS: 73030

== ENCOUNTER → 2021-03-17 07:13 | Outpatient (CLI) | payer MEDICARE, MEDICAID, SELFPAY ==
[2020-06-09 12:37] VITALS: BMI 36.6
--- NOTE | 2021-03-17 07:45 | MRI_ITS ---
STUDY: MRI LEFT SHOULDER REASON FOR EXAM: Left shoulder and upper arm pain, decreased range of motion, no specific injury. TECHNIQUE: Standardized fat and water weighted pulse sequences were obtained in all 3 orthogonal planes. COMPARISON: Radiographs 02/21/2021. FINDINGS: There is supraspinatus tendinosis and a full-thickness tear of the distal anterior supraspinatus tendon (T2 coronal images 12-14) measuring 1.2 to 1.3 cm in length and width. There is mild infraspinatus tendinosis (T2 coronal image 6) without discrete tendon tear. There is mild subscapularis tendinosis (T2 axial images 12, 13) without discrete tendon tear. Normal teres minor tendon. Normal supraspinatus muscle. There is mild atrophy with mild partial fat replacement of the infraspinatus muscle (T2 axial images 8-10). Normal subscapularis muscle. Normal teres minor muscle. There is a small glenohumeral joint effusion. There is cystic change of the greater and lesser tuberosities. Normal biceps labral complex. There is tendinosis of the intracapsular long biceps tendon (T2 sagittal images 9-15) and fluid with septations in the bicipital tendon sheath (proton-density axial images 14-16) suggestive of bicipital tenosynovitis. Normal labrum. Normal capsulo- ligamentous complex. There is acromioclavicular arthrosis with undersurface osteophytes (T2 sagittal image 10). There is a Type II morphology (curved), with a neutral orientation. There is subacromial-subdeltoid bursal fluid. Normal visualized coracohumeral and coracoacromial ligaments. Normal deltoid muscle. Normal trapezius muscle. MRI/Upper Ext Joint Only(Routine) IMPRESSION: Full-thickness tear and tendinosis of the supraspinatus tendon. Mild infraspinatus and subscapularis tendinosis. Mild atrophy of the infraspinatus muscle. Tendinosis of the long biceps tendon and bicipital tenosynovitis. Acromioclavicular arthrosis. Glenohumeral joint fluid communicating with the subacromial-subdeltoid bursa. Electronically Signed: Vinny Wilkinson MD at 8:51 EDT Tel , Service support ,
== END ==
PROVIDERS: PCP Family Medicine; Referring Provider Family Medicine; Visit Provider Family Medicine
DX: M75.122 Complete rotator cuff tear or rupture of left shoulder, not specified as traumatic (principal); M19.012 Primary osteoarthritis, left shoulder
CPT/HCPCS: 73221

== ENCOUNTER → 2021-06-09 10:26 | Outpatient (CLI) | payer MEDICARE, MEDICAID, SELFPAY ==
[2021-03-30 08:45] VITALS: BMI 36.6
[2021-06-09 12:32] LABS: Absolute Lymphocyte Count 1.66 X10^3/uL (0.83-4.51); Absolute Neutrophil Count 3.2 X10^3/uL (2.0-7.7); Basophil# 0.02 X10^3/uL; Basophil% 0.4 % (0-1); Eosinophil# 0.18 X10^3/uL; Eosinophils% 3.4 % (0-5); Hematocrit 43.7 % (37-47); Hemoglobin 14.3 g/dL (12.0-15.0); Lymphocyte # 1.66 X10^3/ul (0.83-4.51); Mean Corp Hgb Conc 32.7 g/dL (32-36); Mean Corpuscular Hgb 28.9 pg (27.0-32.0); Mean Corpuscular Volume 88.5 fL (81-99); Mean Platelet Vol. 13.4 fl (6.2-12.0); Monocyte# 0.26 X10^3/uL; Monocyte% 4.9 % (0-10); NRBC Flagged by Analyzer 0 % (0-5); Neutrophil # 3.21 X10^3/uL (2.7-7.7); Neutrophil % 59.7 % (47-70); Platelet Count 173 K/mm3 (150-450); RBC Distribution Width SD 45.2 fl (35.1-43.9); Red Blood Count 4.94 M/mm3 (4.2-5.4); White Blood Count 5.4 K/mm3 (4.4-11.0)
[2021-06-09 12:43] LABS: AST(SGOT) 16 U/L (15-37); Alanine Aminotransfer ALT/SGPT 20 U/L (13-56); Albumin, Serum 3.5 g/dL (3.2-5.0); Alkaline Phosphatase 104 U/L (45-117); Anion Gap 6 (5-15); BUN 12 mg/dL (7-18); BUN/Creat Ratio 12.1 RATIO (10-20); Calcium,Total 8.7 mg/dL (8.5-10.1); Chloride 106 mmol/L (98-107); Cholesterol 244 mg/dL (200); Creatinine, Serum 0.99 mg/dL (0.55-1.02); EST Glomerular Filtration Rate 60 mL/min (>60); Est Glom Filt Rate - Afr Amer 72 mL/min (>60); Free T3 2.7 pg/mL (2.18-3.98); Globulin 3.6 g/dL (2.2-4.2); Glucose 99 mg/dL (74-106); High Density Lipoprotein 36 mg/dL; Magnesium 2.3 mg/dL (1.6-2.6); Potassium 3.8 mmol/L (3.5-5.1); Protein, Total 7.1 g/dL (6.4-8.2); Sodium Level 139 mmol/L (136-145); T4 Free Direct 0.91 ng/dL (0.76-1.46); Thyroid Stim Hormone (TSH) 1.67 uIU/mL (0.358-3.74); Triglycerides 275 mg/dL; Uric Acid 7.2 mg/dL (2.6-6.0); Very Low Density Lipoprotein 55 mg/dL (5-40)
[2021-06-09 12:46] LABS: Hemoglobin A1c 5.6 % (3.8-5.6)
[2021-06-09 12:47] LABS: Vitamin B12 451 pg/mL (211-911); Vitamin D,25 Hydroxy 79.8 ng/mL
== END ==
PROVIDERS: PCP Family Medicine; Referring Provider Family Medicine; Visit Provider Family Medicine
DX: E03.9 Hypothyroidism, unspecified (principal); E83.42 Hypomagnesemia; E74.39 Other disorders of intestinal carbohydrate absorption; E78.5 Hyperlipidemia, unspecified; E55.9 Vitamin D deficiency, unspecified; M10.9 Gout, unspecified; E53.8 Deficiency of other specified B group vitamins; Z51.81 Encounter for therapeutic drug level monitoring
CPT/HCPCS: 36415; 80053; 80061; 82306; 82607; 83036; 83735; 84439; 84443; 84481; 84550; 85025

== ENCOUNTER → 2021-09-05 08:27 | Outpatient (CLI) | payer MEDICARE, MEDICAID, SELFPAY ==
--- NOTE | 2021-09-05 08:31 | US_ITS ---
INDICATION: RUQ PAIN EXAMINATION: Ultrasound US Abdomen Limited (quadrant) TECHNIQUE: Lance scale imaging with graded compression and color doppler was obtained of the right upper quadrant. COMPARISON: 09/12/2019. FINDINGS: The liver demonstrates slightly increased echogenicity with unremarkable vascularity and unremarkable size, shape and configuration, no evidence of hepatic masses, no evidence of intrahepatic biliary dilatation. The gallbladder demonstrates unremarkable anechoic internal echogenicity, Multiple layering gallstones are seen with posterior acoustic shadowing, no evidence of gallbladder wall thickening no evidence of pericholecystic fluid is visualized. Negative sonographic Lopes''s sign is seen. Gallbladder wall measures 0.2 cm. Common bile duct measures 0.4 cm. The pancreas demonstrates unremarkable echogenicity, no evidence of pancreatic mass is seen. The right kidney demonstrates unremarkable echogenicity, unremarkable vascularity, unremarkable size, shape and configuration, no evidence of right renal masses is seen. No evidence of right renal stones is seen. The right kidney measures 10.3 x 5.2 x 3.6cm. Unremarkable right renal cortex measuring 1.2 cm. US/Abdomen Limited IMPRESSION: Hepatic steatosis Multiple layering gallstones but no evidence of acute cholecystitis. No evidence of acute abdominal pathology. Electronically Signed: Wilson Gastelum MD at 13:59 EDT Tel , Service support ,
== END ==
PROVIDERS: PCP Family Medicine; Referring Provider Family Medicine; Visit Provider Family Medicine
DX: R10.11 Right upper quadrant pain (principal)
CPT/HCPCS: 76705

== ENCOUNTER → 2021-09-11 09:42 | Outpatient (CLI) | payer MEDICARE, MEDICAID, SELFPAY ==
[2021-09-11 10:29] LABS: AST(SGOT) 16 U/L (15-37); Alanine Aminotransfer ALT/SGPT 24 U/L (13-56); Albumin, Serum 3.3 g/dL (3.2-5.0); Alkaline Phosphatase 131 U/L (45-117); Bilirubin, Direct 0.08 mg/dL (0.00-0.30); Globulin 3.9 g/dL (2.2-4.2); Protein, Total 7.2 g/dL (6.4-8.2)
== END ==
PROVIDERS: PCP Family Medicine; Referring Provider Surgery; Visit Provider Surgery
DX: K80.20 Calculus of gallbladder without cholecystitis without obstruction (principal)
CPT/HCPCS: 36415; 80076

== ENCOUNTER 2021-09-15 06:24 | Day surgery (SDC) | payer MEDICARE, MEDICAID, SELFPAY ==
--- NOTE | 2021-09-13 11:00 | EKG12_ITS ---
Test Reason : PRE-OP Blood Pressure : / mmHG Vent. Rate : 085 BPM Atrial Rate : 085 BPM P-R Int : 154 ms QRS Dur : 072 ms QT Int : 404 ms P-R-T Axes : 054 009 034 degrees QTc Int : 480 ms Normal sinus rhythm Nonspecific T wave abnormality Abnormal ECG Confirmed by RICHARD PETERSON, VICTOR MANUEL ([id number]), features editor MARKUS MURRY ([id number]) on 09/14/2021 6:12:42 AM Referred By: Elsi Schultz Confirmed By:VICTOR MANUEL RAMOS MD
[2021-09-13 12:05] LABS: Hematocrit 41.8 % (37-47); Hemoglobin 13.8 g/dL (12.0-15.0); Mean Platelet Vol. 13.2 fl (6.2-12.0); Platelet Count 179 K/mm3 (150-450); RBC Distribution Width CV 14.6 % (11.6-14.6); RBC Distribution Width SD 44.8 fl (35.1-43.9); Red Blood Count 4.92 M/mm3 (4.2-5.4); White Blood Count 7.5 K/mm3 (4.4-11.0)
[2021-09-15] VITALS (7 sets, daily range): BP systolic 116–144; BP diastolic 63–98; PULSE 65–78; RESP 14–18; TEMP 35.6–37.1; O2SAT 84–98; BMI 37.0
[2021-09-15] MEDS: Lactated Ringers 1,000 ML 100 ML IV ×2 (07:18→09:46)
[2021-09-15] MEDS: metroNIDAZOLE 500 MG/100 ML BAG 100 MG IV (07:18)
--- NOTE | 2021-09-15 07:41 | PCM.HP.BLA ---
History and Physical Date of Admission: 09/15/21 Date of Service: 09/11/21 Intake Vital Signs 09/11/21 09:13 Height 5 ft 2 in Weight: 207 lb 8 oz BMI 37.9 BP 159/82 H Blood Pressure Location Rt brachial Position Sitting Respiration 18 Pulse 96 Pulse Source Monitor Temp 97.4 F L Temp Source Temporal Pulse Oximetry (%) 97 Oxygen Delivery Method room air Intake Visit Reasons: Gall Stones Chief Complaint: gallstones Beef Farmer Required: No Is patient in pain?: No Allergies amoxicillin trihydrate [From Augmentin] Allergy (Verified 09/11/21 09:14) Diarrhea codeine Allergy (Verified 09/11/21 09:14) Hives latex Allergy (Verified 09/11/21 09:14) Rash potassium clavulanate [From Augmentin] Allergy (Verified 09/11/21 09:14) Diarrhea niacin Adverse Reaction (Verified 09/11/21 09:14) Other Kcvxpja-Inn-Ptw Reductase Inhibitor Adverse Reaction (Verified 09/11/21 09:14) Other Medications duloxetine 60 mg PO DAILY 03/18/14 [History Confirmed 09/11/21] cholecalciferol (vitamin D3) 5,000 unit PO DAILY 03/26/17 [History Confirmed 09/11/21] hydrocodone-acetaminophen 1 - 2 tab PO Q4H PRN PRN #12 tab 03/30/17 [Rx Confirmed 09/11/21] ibuprofen 600 mg PO 4X/DAY PRN #30 tab 11/10/18 [Rx Confirmed 09/11/21] ezetimibe 10 mg tablet 10 mg PO DAILY 09/15/19 [History Confirmed 09/11/21] allopurinol 300 mg tablet 300 mg PO DAILY 09/11/21 [History Confirmed 09/11/21] clonidine HCl 0.1 mg tablet 0.1 mg PO BID 09/11/21 [History Confirmed 09/11/21] colchicine 0.6 mg tablet 0.6 mg PO DAILY 09/11/21 [History Confirmed 09/11/21] colestipol 1 gram tablet 1 g PO BID tab 09/11/21 [History Confirmed 09/11/21] escitalopram oxalate 10 mg tablet mg PO DAILY tab 09/11/21 [History Confirmed 09/11/21] lorazepam 1 mg tablet PO PRN 09/11/21 [History Confirmed 09/11/21] pantoprazole 20 mg tablet,delayed release PO DAILY tab 09/11/21 [History Confirmed 09/11/21] vitamin B complex 1 tab PO DAILY 09/11/21 [History Confirmed 09/11/21] [facility] Medical History (Updated 09/11/21 @ 09:[address] Elsi Schultz MD) Abdominal pain BRANDI positive Anxiety Arthritis Chronic bronchitis Constipation Depression Diarrhea Diverticulitis Gallstones GERD (gastroesophageal reflux disease) Gout Hemorrhoids Hypertension Nausea Osteoarthritis Septic arthritis of interphalangeal joint of toe of right foot SOB (shortness of breath) Venous stasis dermatitis Surgical History History of bilateral knee replacement History of esophagogastroduodenoscopy (EGD) (~09/16/19) Hx of foot surgery Hx of hysterectomy Hx of shoulder surgery Family History Mother Colon cancer CVA (cerebral vascular accident) Father Heart disease Hypertension High cholesterol Social History Smoking Status: Former smoker second hand exposure: No alcohol intake: current alcohol intake frequency: a few times a month substance use type: does not use caffeine: Yes what type of physical activity do you participate in: none frequency: does not exercise HPI HPI HPI: SHANE CRUZ, is a 66 F who presents to the office today for Right upper quadrant pain/epigastric pain after eating last for about 30 min. Started at the end of August. Patient states she does have nausea all day as well denies any vomiting. Patient did have a repeat ultrasound of her gallbladder did show more gallstones/sludge, normal wall, normal common bile duct, no pericholecystic fluid. Patient is currently taking her Protonix 20 mg p.o. twice daily ROS General General: No weight change, appetite, fatigue, colon cancer, breast cancer or weakness HEENT HEENT: Yes eye surgery; No difficulty swallowing, eye injury, swollen glands or hoarseness Endo Endocrine: No thyroid disease, diabetes mellitus, thyroid cancer, Hair loss, heat intolerance or cold intolerance Skin Skin: No rash or changing moles Breast Breast: No left breast lump, right breast lump, nipple discharge, breast pain, abnormal mammogram, abnormal US or breast enlargement Musc Musculoskeletal: Yes arthritis and gout; No back problems, rheumatoid arthritis or joint pain Cardio Cardiovascular: Yes high blood pressure; No murmur, pacemaker, heart disease, atrial fibrillation, heart attack, heart stent, palpitations, shortness of breat with exertion or chest pain Psych Psychiatric: Yes depression and anxiety; No hearing voices Resp Respiratory: No shortness of breath, No sleep apnea, No cough, No COPD, No asthma, No emphysema and No wheezing Gastro Gastrointestinal: Yes abdominal pain, Yes nausea or vomiting, No diarrhea, Yes constipation, No blood in stool, No acid reflux, Yes hemorrhoids, No ulcers, Yes gallbladder problem and No black,tarry stools Sameer Hematologic: No blood thinners, No blood disorders, No bleeding, No anemia and No blood clots Neuro Neurologic: No system reviewed and no additional complaints, except as documented, No as per HPI, No abnormal gait, No abnormal hearing, No abnormal movements, No abnormal speech, No behavioral changes, No burning sensations, No confusion, No convulsions, No disequilibrium, No dizziness, No localized weakness, No frequent falls, No headache(s), No lack of coordination, No loss of vision, No memory loss, No numbness, No other visual disturbances, No radicular pain, No restless legs, No sensory deficit, No syncope, No tingling, No tremor(s), No weakness and No other Exam Const General: cooperative, healthy appearing, comfortable and no acute distress Neck Neck: normal visual inspection Resp Effort & Inspection: normal respiratory effort Cardio Rate: regular rate GI Inspection: non-distended Palpation: soft, no guarding and tender in the epigastrum, in the LUQ and in the RUQ; Lopes's sign negative and with no rebound tenderness Skin General: no rashes or lesions noted Neuro General: patient oriented x3 Psych Affect: normal affect COVID (Procedure Consent) Procedure Criteria Procedure Criteria: Yes Elective The surgeon/proceduralist and patient have discussed in detail the risk of exposure to and/or potential harm posed by the COVID-19 virus with having a surgery/procedure at this time versus the risk of delaying the surgery/procedure. It is not possible to know either the risk of delaying the surgery or procedure or chance of getting an infection with perfect accuracy, but a joint decision was made between the patient and the surgeon/proceduralist to proceed at this time with the scheduled surgery/procedure as indicated on the consent form. Assessment and Plan Assessment and Plan (1) Gallstone: Status: Acute (2) GERD (gastroesophageal reflux disease): Status: Chronic (3) Nausea: Status: Acute Orders: Orders: Liver Profile Today K80.20 Plan - Dr. Elsi Schultz MD: We will check LFTs. Discussed patient that she will need to still continue to stay on her Protonix as well. Did review ultrasound imaging and report with the patient. Reviewed the anatomy with the patient and discussed the procedure: laparoscopic cholecystectomy with possible cholangiograms, possible open. Review risks including but not limited to bleeding, infection, hernia, bile leak, retained gallstones requiring another procedure ERCP- Endoscopic Retrograde Cholangiopancreatography, injury to another organ (bile ducts, common bile duct, small bowel, etc.) may require transfer to a tertiary care facility and conversion to an open procedure. All questions were answered. Elsi Schultz M.D. Pager: [phone] [facility] [address] [place] [address], [address] [place] [address] Office: [phone] Coding Level of Care Code Off vis,est,level 3 Diagnoses Gallstone K80.20 GERD (gastroesophageal reflux disease) K21.9 Nausea R11.0 09/11/21 0943<Electronically signed by Elsi Schultz MD>Date Elsi Schultz MD
--- NOTE | 2021-09-15 08:00 | RAD_ITS ---
STUDY: INTRAOPERATIVE CHOLANGIOGRAM. REASON FOR EXAM: Female, 66 years old. LAPAROSCOPIC, CHOLECYSTECTOMY WITH IOC FLUOROSCOPY TIME (if supplied): ( 30.2 seconds ) minutes/seconds. A cine loop of 58 images were submitted. TECHNIQUE: Intraoperative glandular was performed by the surgeon. Imaging was submitted. COMPARISON: None. FINDINGS: The intra and extrahepatic biliary ducts are unremarkable. No intraluminal filling defect is seen. There is free flow of contrast into the duodenum. RAD/Cholangiogram/ O R,Initial IMPRESSION: Unremarkable intraoperative cholangiogram. Electronically Signed: Gabriel Crisostomo MD at 12:30 EDT , Service support ,
--- NOTE | 2021-09-15 08:00 | GALL_PTH ---
PATIENT: SHANE CRUZ [place] [facility] [id number] AGE/SX: 66/F ROOM: RE09/15/[address]: Dr. Elsi Schultz MD : 1955 BED: DIS: 09/15/2021 SPEC #: [id number] RECD: 09/15/21 11:15 STATUS: DONAVAN REDiamond #: [id number] ELENO: 09/15/21 08:[address]: Elsi Schultz DEPT: SURGICAL PATHOLOGY RECD BY: Shoshana Hood ENTERED: 09/15/21 12:45 SP TYPE: MOMO AVILA DR: Dr. Ashli Snowden DO Tissues: Gallbladder, NOS Procedures: Surgery Specimen Level III HEADER OPERATION: Laparoscopic cholecystectomy with IOC PRE-OP DIAGNOSIS: Gallstone TISSUE SUBMITTED: Gallbladder MICROSCOPIC DIAGNOSIS Gallbladder, cholecystectomy: Chronic cholecystitis and cholelithiasis. SJ:estrellita 09/18/2021 MICROSCOPIC DESCRIPTION Slides are reviewed. GROSS DESCRIPTION Received is one container labeled with the patient's name and designated gallbladder. The specimen consists of a previously opened gallbladder measuring 9 cm in length and up to 4 cm in diameter. The external surface is pink-daniels, smooth and glistening for the most part. Focally it is granular, hemorrhagic and contains cautery artifact. The gallbladder contains green-yellow mucoid bile. Also present in the container and in the gallbladder are multiple yellowish stone and stone fragments measuring in aggregate 6 x 5 x 1 cm and 0.1 to 1 cm in greatest dimension. The mucosa is bile-stained and without any mass lesions. The gallbladder wall measures up to 0.2 cm in thickness. Recreation Instructor sections from the gallbladder and the cystic duct are submitted in one cassette. / SJ:rg 09/15/21 TC:3 [facility]: [id number]
[2021-09-15] MEDS: Ciprofloxacin 400 MG/200 ML BAG 200 MG IV (08:12)
[2021-09-15] MEDS: Bupivacaine Mpf 0.5% 30 ML VIAL (08:13)
--- NOTE | 2021-09-15 09:08 | OP.PCM_ITS ---
Report of Operation Date of Procedure: 09/15/21 Pre-Operative Diagnosis: Cholelithiasis, nausea vomiting Post-Operative Diagnosis: Same Surgery/Procedure Performed:: Laparoscopic cholecystectomy with cholangiograms Surgeon: Elsi Schultz Type of Anesthesia: General/Supplemental Anesthesiologist: Geovanny Gould Special Medications: Cipro 40 mg IV x1, Flagyl 500 mg IV x1 Specimen's removed: Gallbladder and stones Estimated Blood Loss (mL): <10 cc Description of Procedure: Indications this is a 66 year-old female who developed abdominal pain/nausea/vomiting and on workup was found to have cholelithiasis, with a normal common bile duct. Laparoscopic cholecystectomy was elected. Description procedure: The patient was placed on operating table in supine position. General Anesthesia was induced. A timeout was completed verifying correct patient, procedure, site, position and special equipment prior to beginning procedure. The abdomen was prepped and draped in usual sterile fashion. An incision was made in the natural skin line above the umbilicus. The fascia was elevated and incised. The peritoneum was elevated and incised. Entry into the peritoneum was confirmed visually and no bowel was noted in the vicinity of the incision. Hogan trocar was placed. The abdomen was insufflated with carbon dioxide to a pressure of 12-15 mmHg. Patient tolerated insufflation well. The laparoscope was then inserted and abdomen inspected. No injuries from initial trocar placement were noted. Additional trochars were then inserted in the following locations 5 mm trocar in the epigastrium and 2 more 5 mm trochars along the right costal margin. The abdomen was inspected no abnormalities were found. The table is placed in reverse Trendelenburg position with the right side up. The adhesions between the gallbladder and omentum were lysed sharply. The dome of the gallbladder was grasped with atraumatic grasper passed through the lateral port and retracted over the dome of the liver. Infundibulum was then grasped with atraumatic grasper through the midclavicular port and retracted to the right lower quadrant. This maneuver exposed Calot's triangle. The peritoneum overlying the gallbladder infundibulum was then incised and cystic duct and artery identified and circumferentially dissected. Ranfac catheter was placed after incision was made in the abdomen. Cholangiogram was completed which showed good filling of the common bile duct right and left bile ducts and into the duodenum. The cystic duct and artery were then doubly clipped and divided close to the gallbladder. The gallbladder then dissected from its peritoneal attachments by electrocaute ry. Hemostasis was checked and the gallbladder and contained stones were removed using the endoscopic retrieval bag through the umbilical port. The gallbladder is passed off table as specimen. The gallbladder fossa was copiously irrigated with saline and hemostasis obtained. There is no evidence of bleeding from the gallbladder fossa or cystic artery leakage of bile from the cystic duct stump. Secondary trochars removed under direct vision. No bleeding was noted the trocar sites. The laparoscope was withdrawn and umbilical trocar removed. The abdomen was allowed to collapse. The fascia of the 12 mm trocar was closed with a [id number] 0 Vicryl suture. The skin was closed with sutures of 4-0 Monocryl and Steri-Strips. The orogastric tube was removed and the patient was extubated. The patient tolerated procedure well and was taken to the postanesthesia care unit in stable condition. Complications none
--- NOTE | 2021-09-15 09:10 | EX.PCM.DISCH ---
Discharge Instructions Diet Discharge Diet: Light diet - advance as tolerated Activity Discharge Activity: May Not Drive (while taking narcotic pain medications.) May shower in (days): 1 Lifting Restrictions: no lifting >20 lbs x 2 wks, no strenuous exercise for 4 wks Dressing / Incision Call your doctor if your incision/area has: Continuous Slow Oozing, Sudden Increased Bleeding, Increased Pain/ Swelling, Increased Redness, Foul Smelling Discharge and Swelling at the incision site Call your doctor if you observe: Fever of 101 or Higher Remove Dressing in: 2 days Cleanse incision/area with: Soap & Water Additional Dressing/Incision Instructions:: Steri-Strips will fall off in 7 to 10 days, if they do not fall off okay to remove after 10 days. Follow Up Care Please Follow Up With: Elsi Schultz MD When: Call the office for a follow-up appointment 2 weeks; after 5 PM and on the weekends call [phone] with any concerns. Test Results: Test results from this visit will be discussed in further detail at your follow-up appointment, if applicable. Discharge Plan Admission Attending Provider: Elsi Schultz Primary Care Provider: Ashli Snowden Discharge Orders/Prescriptions Prescriptions: Continued ezetimibe [Zetia] 10 mg tablet 10 mg PO DAILY RF: 0 pantoprazole 20 mg tablet,delayed release (DR/EC) 40 mg PO DAILY RF: 0 escitalopram oxalate 10 mg tablet 10 mg PO DAILY RF: 0 lorazepam 1 mg tablet 1 mg PO PRN PRN (Reason: anxiety) RF: 0 clonidine HCl 0.1 mg tablet 0.1 mg PO BID RF: 0 vitamin B complex [B Complex-Vitamin B12] Tablet 1 tab PO DAILY RF: 0 colestipol 1 gram tablet 1 g PO BID RF: 0 allopurinol 300 mg tablet 300 mg PO DAILY RF: 0 duloxetine 60 MG capsule 60 mg PO DAILY RF: 0 cholecalciferol (vitamin D3) 5,000 UNIT capsule 5,000 unit PO DAILY RF: 0 ibuprofen 600 MG tablet 600 mg PO 4X/DAY PRN (Reason: Pain) Qty: 30 RF: 0 hydrocodone-acetaminophen 1 EACH tablet 1 - 2 tab PO Q4H PRN PRN (Reason: Pain) 3 Days Qty: 12 RF: 0 Referrals / Follow Up: Malys,Ashli, DO [Primary Care Provider] - Disposition Disposition (needs filled in before D/C Order can be placed): Home, Self Care
== END 2021-09-15 11:32 | disposition home or self-care (01) ==
LOC: SDC 06:25 → AC 06:26
PROVIDERS: Anesthesiology; PCP Family Medicine; Referring Provider Surgery; Visit Provider Surgery
PROC: (CPT 47610; principal; 2021-09-15 07:40)
DX: K80.10 Calculus of gallbladder with chronic cholecystitis without obstruction (principal); K66.0 Peritoneal adhesions (postprocedural) (postinfection); K21.9 Gastro-esophageal reflux disease without esophagitis; I10 Essential (primary) hypertension; M19.90 Unspecified osteoarthritis, unspecified site; F32.A Depression, unspecified; F41.9 Anxiety disorder, unspecified; Z79.899 Other long term (current) drug therapy; Z87.891 Personal history of nicotine dependence
CPT/HCPCS: 00790; 47563; 36415; 74300; 76000; 85027; 88304; 93005; J7120; A4216; J0744; J2405

== ENCOUNTER 2021-12-26 13:06 | Outpatient (CLI) | payer MEDICARE, MEDICAID, SELFPAY ==
--- NOTE | 2021-12-26 13:11 | BI_ITS ---
MAMMOGRAPHY - BILATERAL SCREENING REASON FOR EXAM: Female, 66 years old. Routine annual screening examination. PERTINENT HISTORY: Non-contributory. Clear fluid drainage from the left nipple. TECHNIQUE: Digital bilateral breast danielito (3D mammographic acquisition) in the CC and MLO projections. 2-D mediolateral oblique (MLO) and craniocaudad (CC) views of both breasts were obtained. CAD: Full Field Digital Mammography with Computer Added Detection was performed. COMPARISON: Comparison is made with prior study dated 08/30/2020 and 08/27/2017. FINDINGS: Breast Composition: There are scattered areas of fibroglandular density. There are no dominant masses or suspicious calcifications. Stable small benign-appearing bilateral axillary lymph nodes. No other significant abnormalities are identified. There has been no significant change since the prior study. BI/SCRN MAMM (CAD)W/DANIELITO BILAT IMPRESSION: Stable bilateral screening mammogram. Yearly follow-up mammogram recommended. (A) ASSESSMENT CATEGORY: BIRADS Category 2: Benign. A letter regarding these results will be sent to the patient by the facility within 30 days. Approximately 10% of breast cancers are not detected by mammography. A normal mammogram should not delay biopsy of a clinically suspicious abnormality. [id number] Electronically Signed: Gabriel Crisostomo MD at 13:51 EST ,
== END 2021-12-26 23:59 | disposition short-term general hospital (02) ==
LOC: OPBI 13:07
PROVIDERS: PCP Family Medicine; Referring Provider Family Medicine; Visit Provider Family Medicine
DX: Z12.31 Encounter for screening mammogram for malignant neoplasm of breast (principal)
CPT/HCPCS: 77063; 77067

== ENCOUNTER 2022-02-28 11:08 | Outpatient (CLI) | payer MEDICARE, MEDICAID, SELFPAY ==
--- NOTE | 2022-02-28 11:12 | RAD_ITS ---
STUDY: X-RAY - LUMBOSACRAL SPINE REASON FOR EXAM: Female, 66 years old. PAIN TECHNIQUE: 6 view(s) of the lumbosacral spine were obtained. COMPARISON: None FINDINGS: Normal lumbar lordosis. Mild dextroscoliosis centered at L2. 2 mm of anterolisthesis of L4 on L5. This is unchanged on the flexion and extension views. Normal vertebral bodies and endplates. Normal disc space heights. Facet hypertrophy in the lower lumbar spine. Normal bilateral sacral ala, sacroiliac joints, and visualized sacrum. Normal visualized soft tissue structures. RAD/L/S Spine Bending Flex/Ext IMPRESSION: Mild dextroscoliosis with diffuse degenerative disc disease with 2 mm of anterolisthesis of L4 on L5. Electronically Signed: Rayo Johnson MD at 17:24 EDT ,
--- NOTE | 2022-02-28 11:12 | RAD_ITS ---
STUDY: X-RAY - PELVIS AND RIGHT HIP REASON FOR EXAM: Female, 66 years old. PAIN TECHNIQUE: 3 views of the pelvis and hip. COMPARISON: None. FINDINGS: There is a non-specific bowel gas pattern. Normal visualized soft tissue structures. Normal bilateral iliac wings, sacroiliac joints and visualized sacrum. Normal bilateral superior and inferior pubic rami. Normal pubic symphysis. Normal bilateral ischial tuberosities. Normal visualized femoral head. There is osteoarthritic spur formation of the acetabular rim. There is mild articular joint space narrowing of the hip. RAD/HIP, UNI W/ Pelvis 2-3 Views IMPRESSION: Mild arthrosis. Electronically Signed: Rayo Johnson MD at 17:23 EDT ,
== END 2022-02-28 23:59 | disposition home or self-care (01) ==
LOC: MTRAD 11:10
PROVIDERS: PCP Family Medicine; Referring Provider Family Medicine; Visit Provider Family Medicine
DX: M25.551 Pain in right hip (principal); M54.16 Radiculopathy, lumbar region
CPT/HCPCS: 72120; 73502

== ENCOUNTER → 2022-03-29 | Outpatient (CLI) | payer MEDICARE, MEDICAID, SELFPAY ==
--- NOTE | 2022-03-29 08:58 | NM_ITS ---
INDICATION: PAIN DUE TO INTERNAL ORTHOPEDIC PROSTHETIC DEVICES/ RIGHT MORE PAINFUL -- RT KNEE REPLACED 12 YEARS AGO -- LT KNEE REPLACED 11 YEARS AGO EXAMINATION: NUCLEAR MEDICINE TRIPLE PHASE BONE SCAN - NM Bone Three Phase Study TECHNIQUE: 26.8 mCi tc99m MDP were intravenously administered. Bone images were obtained. Triple phase protocol was utilized. COMPARISON/CORRELATED STUDIES: None. FINDINGS: Flow images demonstrate normal blood flow to both lower extremities. Blood pool images demonstrate nonspecific focal tracer at the right knee prosthesis. Delayed images demonstrate normal activity in both lower extremities. NM/Bone Scan Three Phase IMPRESSION: Blood pool images demonstrate nonspecific focus of activity at the right prosthesis. Otherwise there is negative triple-phase bone scan. Electronically Signed: Keo Lutz MD at 4:57 EDT ,
== END | disposition home or self-care (01) ==
LOC: NM 08:57
PROVIDERS: PCP Family Medicine; Referring Provider Orthopaedic Surgery Hand Surgery; Visit Provider Orthopaedic Surgery Hand Surgery
DX: T84.84XD Pain due to internal orthopedic prosthetic devices, implants and grafts, subsequent encounter (principal); I70.92 Chronic total occlusion of artery of the extremities; Z96.651 Presence of right artificial knee joint; Z96.652 Presence of left artificial knee joint
CPT/HCPCS: 78315; A9503

== ENCOUNTER → 2022-04-17 | Outpatient (CLI) | payer MEDICARE, MEDICAID, SELFPAY ==
[2022-04-17 17:32] LABS: Absolute Lymphocyte Count 2.74 X10^3/uL (0.83-4.51); Absolute Neutrophil Count 5.9 X10^3/uL (2.0-7.7); Basophil# 0.05 X10^3/uL; Basophil% 0.5 % (0-1); Eosinophil# 0.14 X10^3/uL; Eosinophils% 1.5 % (0-5); Hematocrit 42.2 % (37-47); Hemoglobin 13.8 g/dL (12.0-15.0); Lymphocyte # 2.74 X10^3/ul (0.83-4.51); Lymphocyte % 29.5 % (19-41); Mean Corp Hgb Conc 32.7 g/dL (32-36); Mean Corpuscular Hgb 29.2 pg (27.0-32.0); Mean Corpuscular Volume 89.2 fL (81-99); Mean Platelet Vol. 12.7 fl (6.2-12.0); Monocyte# 0.39 X10^3/uL; Monocyte% 4.2 % (0-10); NRBC Flagged by Analyzer 0 % (0-5); Neutrophil # 5.88 X10^3/uL (2.7-7.7); Neutrophil % 63.4 % (47-70); Platelet Count 220 K/mm3 (150-450); RBC Distribution Width CV 13.9 % (11.6-14.6); RBC Distribution Width SD 44.5 fl (35.1-43.9); Red Blood Count 4.73 M/mm3 (4.2-5.4); White Blood Count 9.3 K/mm3 (4.4-11.0)
[2022-04-17 17:50] LABS: Erythrocyte Sedimentation Rate 12 mm/hr (0-30)
[2022-04-17 18:29] LABS: Vitamin B12 1959 pg/mL (211-911); Vitamin D,25 Hydroxy 64.5 ng/mL
[2022-04-17 18:31] LABS: ALB/GLOB Ratio 0.9 RATIO (0.9-2.4); AST(SGOT) 14 U/L (15-37); Alanine Aminotransfer ALT/SGPT 19 U/L (13-56); Albumin, Serum 3.3 g/dL (3.2-5.0); Alkaline Phosphatase 102 U/L (45-117); Anion Gap 9 (5-15); BUN 16 mg/dL (7-18); BUN/Creat Ratio 15.1 RATIO (10-20); CRP 3.21 mg/L (0.0-3.0); Calcium,Total 8.6 mg/dL (8.5-10.1); Chloride 104 mmol/L (98-107); Creatinine, Serum 1.06 mg/dL (0.55-1.02); EST Glomerular Filtration Rate 55 mL/min (>60); Est Glom Filt Rate - Afr Amer 67 mL/min (>60); Free T3 2.3 pg/mL (2.18-3.98); Globulin 3.6 g/dL (2.2-4.2); Glucose 94 mg/dL (74-106); Potassium 3.3 mmol/L (3.5-5.1); Protein, Total 6.9 g/dL (6.4-8.2); Sodium Level 140 mmol/L (136-145); T4 Free Direct 0.84 ng/dL (0.76-1.46); Thyroid Stim Hormone (TSH) 2.16 uIU/mL (0.358-3.74); Uric Acid 6.9 mg/dL (2.6-6.0)
== END | disposition home or self-care (01) ==
LOC: MTLAB 15:43
PROVIDERS: PCP Family Medicine; Referring Provider Family Medicine; Visit Provider Family Medicine
DX: E03.9 Hypothyroidism, unspecified (principal); E53.8 Deficiency of other specified B group vitamins; R73.03 Prediabetes; I10 Essential (primary) hypertension; M10.9 Gout, unspecified; E55.9 Vitamin D deficiency, unspecified; M25.50 Pain in unspecified joint; R53.83 Other fatigue
CPT/HCPCS: 36415; 80053; 82306; 82607; 83036; 84439; 84443; 84481; 84550; 85025; 85652; 86140

== ENCOUNTER 2022-06-01 17:44 | Emergency (ER) | payer MEDICARE, MEDICAID, SELFPAY ==
[2022-06-01 17:45] VITALS: BP 179/100; PULSE 97; RESP 16; TEMP 36.1; O2SAT 99; BMI 37.8
--- NOTE | 2022-06-01 17:48 | EKG12_ITS ---
Test Reason : CP Blood Pressure : / mmHG Vent. Rate : 091 BPM Atrial Rate : 091 BPM P-R Int : 154 ms QRS Dur : 070 ms QT Int : 358 ms P-R-T Axes : 065 019 063 degrees QTc Int : 440 ms Normal sinus rhythm ST & T wave abnormality, consider anterior ischemia Abnormal ECG Confirmed by YOLANDA PETERSON, CHRISSY ([id number]), mapping editor MARKUS MURRY ([id number]) on 06/05/2022 10:05:12 AM Referred By: Confirmed By:CHRISSY GUERRERO MD
[2022-06-01 18:23] LABS: Absolute Lymphocyte Count 2.97 X10^3/uL (0.83-4.51); Absolute Neutrophil Count 4.1 X10^3/uL (2.0-7.7); Basophil# 0.04 X10^3/uL; Basophil% 0.5 % (0-1); Eosinophil# 0.16 X10^3/uL; Eosinophils% 2.1 % (0-5); Hemoglobin 14.4 g/dL (12.0-15.0); Lymphocyte # 2.97 X10^3/ul (0.83-4.51); Lymphocyte % 38.6 % (19-41); Mean Corp Hgb Conc 33.5 g/dL (32-36); Mean Corpuscular Hgb 29.9 pg (27.0-32.0); Mean Corpuscular Volume 89.2 fL (81-99); Mean Platelet Vol. 12.6 fl (6.2-12.0); Monocyte# 0.37 X10^3/uL; Monocyte% 4.8 % (0-10); NRBC Flagged by Analyzer 0 % (0-5); Neutrophil # 4.12 X10^3/uL (2.7-7.7); Neutrophil % 53.5 % (47-70); Platelet Count 211 K/mm3 (150-450); RBC Distribution Width CV 14.6 % (11.6-14.6); RBC Distribution Width SD 46.9 fl (35.1-43.9); Red Blood Count 4.82 M/mm3 (4.2-5.4); White Blood Count 7.7 K/mm3 (4.4-11.0)
--- NOTE | 2022-06-01 18:33 | EX.ED.DYSGE1 ---
HPI History of Present Illness Chief Complaint: Hypertension Informant: patient Onset/Context/Timing Onset: Weeks (3-weeks) Context: Gradual Onset Current Severity: Mild Maximum Severity: Moderate Narrative Narrative: Patient presents after 3 weeks of hypertension. She states she had mildly elevated blood pressure in the past but never required medication for it. Of the last 3 weeks she had blood pressures from 160 up to 190. She was initially on clonidine 0.1 mg twice daily. This was increased to 3 times daily with no significant improvement. She then had her clonidine stopped and started on losartan 50 mg daily. Patient complains of mild headache along with some chest pain and pain around her left scapula that started yesterday. Pain is worse with a deep breath. [facility] Medical History Alcohol use BRANDI positive Anxiety Arthritis Arthritis Chronic bronchitis Constipation Depression Diarrhea Diverticulitis Gallstones Gastric reflux GERD (gastroesophageal reflux disease) Gout Hemorrhoids History of diverticulitis History of stress test Hoarseness Hypertension Osteoarthritis Septic arthritis of interphalangeal joint of toe of right foot Shortness of breath on exertion Smoker SOB (shortness of breath) Venous stasis dermatitis Wears dentures Home Medications duloxetine 60 mg capsule,delayed release 60 mg PO DAILY 03/18/14 [History Last Taken 03/30/17] cholecalciferol (vitamin D3) 125 mcg (5,000 unit) capsule 5,000 unit PO DAILY 03/26/17 [History Last Taken 03/30/17] ibuprofen 600 mg tablet 600 mg PO 4X/DAY PRN Pain #30 tabs 11/10/18 [Rx Last Taken Unknown] ezetimibe 10 mg tablet (Zetia) 10 mg PO DAILY 09/15/19 [History Last Taken Unknown] escitalopram oxalate 10 mg tablet 10 mg PO DAILY 09/11/21 [History Last Taken Unknown] lorazepam 1 mg tablet 1 mg PO PRN PRN anxiety 09/11/21 [History Last Taken Unknown] pantoprazole 20 mg tablet,delayed release 40 mg PO DAILY 09/11/21 [History Last Taken 09/15/21 05:30] Lactobacillus rhamnosus GG 10 billion cell capsule (Culturelle) 1 cap PO DAILY 05/08/22 [History Last Taken Unknown] colchicine 0.6 mg tablet 0.6 mg PO BID PRN GOUT 05/08/22 [History Last Taken Unknown] cyanocobalamin (vitamin B-12) 1,000 mcg/mL injection solution 100 mcg IM QMONTH 05/08/22 [History Last Taken Unknown] sennosides 8.6 mg-docusate sodium 50 mg tablet (Senna with Docusate Sodium) 1 tab-cap PO QHS 05/08/22 [History Last Taken Unknown] losartan 50 mg tablet 50 mg PO DAILY 06/01/22 [History Last Taken Unknown] Allergy/AdvReac Type Severity Reaction Status Date / Time amoxicillin trihydrate Allergy Diarrhea Verified 06/01/22 17:44 [From Augmentin] codeine Allergy Hives Verified 06/01/22 17:44 latex Allergy Rash Verified 06/01/22 17:44 potassium clavulanate Allergy Diarrhea Verified 06/01/22 17:44 [From Augmentin] bupropion [From Wellbutrin] AdvReac Intermediate ANGRY,IRRIT Verified 06/01/22 17:44 ABLE niacin AdvReac Other Verified 06/01/22 17:44 Pstjxhx-PEG-SqX Reductase AdvReac Other Verified 06/01/22 17:44 Inhibitor [Jdnentp-Gnu-Bld Reductase Inhibitor] gluten AdvReac Intermediate Upset Uncoded 06/01/22 17:44 Stomach Family History Mother Colon cancer CVA (cerebral vascular accident) Father Heart disease Hypertension High cholesterol Surgical History History of bilateral knee replacement History of cholecystectomy (~09/2021) History of esophagogastroduodenoscopy (EGD) (~09/16/19) Hx of colonoscopy Hx of foot surgery Hx of hysterectomy Hx of left cataract extraction Hx of right cataract extraction Hx of rotator cuff surgery Hx of shoulder surgery S/P laparoscopic cholecystectomy Social History Smoking Status: Current every day smoker tobacco type: cigarettes second hand exposure: No alcohol intake: current alcohol intake frequency: a few times a month substance use type: does not use caffeine: Yes what type of physical activity do you participate in: none frequency: does not exercise ROS ROS ED Constitutional Constitutional ED: Denies chills or fever(s) Eyes Eyes: Denies change in vision or discharge from eye(s) ENT ENT ED: Denies discharge from eye(s), rhinorrhea or sore throat Cardiovascular Cardiovascular: Reports chest pain; Denies palpitations Respiratory/Chest Respiratory/Chest: Reports dyspnea; Denies cough Gastrointestinal Gastrointestinal: Reports nausea; Denies abdominal pain, diarrhea or vomiting Genitourinary Genitourinary ED: Denies difficulty urinating or dysuria Musculoskeletal Musculoskeletal: Denies back pain or extremity pain Integumentary Denies Abrasions or rash Neurologic Neurologic: Reports headache(s); Denies weakness Allergic/Immunologic Allergic/Immunologic ED: Denies lip swelling or urticaria EXAM Physical Exam Const Vital Signs: 06/01/22 17:45 06/01/22 18:42 06/01/22 18:43 Temperature 96.9 F L Temperature Source Temporal Pulse Rate 97 Respiratory Rate 16 Respiratory Effort Normal Respiratory Pattern Normal Blood Pressure 179/100 H Blood Pressure Mean 126 Pulse Ox 99 97 Oxygen Delivery Method Room Air Room Air 06/01/22 20:35 06/01/22 21:21 06/01/22 21:45 Temperature Temperature Source Pulse Rate 65 65 Respiratory Rate 16 Respiratory Effort Respiratory Pattern Blood Pressure 189/99 H 173/91 H 162/88 H Blood Pressure Mean 129 118 112 Pulse Ox 98 Oxygen Delivery Method Room Air 06/01/22 23:29 Temperature Temperature Source Pulse Rate 66 Respiratory Rate Respiratory Effort Respiratory Pattern Blood Pressure 164/86 H Blood Pressure Mean 112 Pulse Ox Oxygen Delivery Method Positive well nourished and well developed General Appearance ED: well developed HEENT Reports moist mucous membranes Eyes PERRL and EOMs intact bilaterally Neck no lymphadenopathy Chest Wall inspection of chest normal Resp normal respiratory effort and clear to auscultation bilaterally Cardio regular rate and regular rhythm GI normal to inspection, nondistended, normoactive bowel sounds and non-tender Neuro oriented x3, CN's II-XII intact bilaterally and no sensory deficits noted Sensorium / Orientation: alert Motor Exam: strength 5/5 throughout Skin no rashes or lesions noted MDM MDM MDM Narrative Medical decision making narrative: EKG, chest x-ray, lab work obtained. Lab Data Attestation: I reviewed the patient's lab results. Labs: Laboratory Results - last 24 hr 06/01/22 06/01/22 06/01/22 18:16 18:16 18:16 WBC 7.7 RBC 4.82 Hgb 14.4 Hct 43.0 MCV 89.2 MCH 29.9 MCHC 33.5 RDW Std Deviation 46.9 H RDW Coeff of Phan 14.6 Plt Count 211 MPV 12.6 H Immature Gran % (Auto) 0.500 Neut % (Auto) 53.5 Lymph % (Auto) 38.6 [place] % (Auto) 4.8 Eos % (Auto) 2.1 Baso % (Auto) 0.5 Absolute Neuts (auto) 4.1 Absolute Lymphs (auto) 2.97 Nucleated RBC % 0 D-Dimer Quant (PE/DVT) 0.40 Sodium 141 Potassium 3.3 L Chloride 108 H Carbon Dioxide 25.0 Anion Gap 8 BUN 12 Creatinine 0.98 Estim Creat Clear Calc 46.08 Est GFR (MDRD) Af Amer 73 Est GFR (MDRD) Non-Af 61 BUN/Creatinine Ratio 12.3 Glucose 135 H Calcium 8.8 Troponin I High Sens 7 Radiography Chest X-Ray - ED: 1 View, Read by ED Physician and Chronic Changes Diagnostic Testing: Clinical Impression(s) from Imaging Studies Chest X-Ray 06/01/22 18:38 IMPRESSION: 1. Borderline to mild cardiomegaly without heart failure. 2. No other evidence of active cardiopulmonary pulmonary disease: no pneumonia, pneumonitis, bronchitis or pulmonary mass lesions. 3. No significant interval change since the previous study of 04/27/2018. Electronically Signed: Keo Wiggins MD at 18:58 EDT , EKG Initial EKG: Attestation: I personally reviewed and interpreted this EKG as follows: Interpretation: Sinus Rhythm (Sinus at 91 with no acute ischemia. Nonspecific T wave flattening throughout. Similar in presentation to September 2021.) Treatment and Re-Evaluation Narrative: Patient's blood pressure did remain elevated in the 170s. She was given 10 mg of labetalol and blood pressure improved approximate 20 points. Throughout the course of her ED stay blood pressure has climbed again to 170s. Lab work is unremarkable including a negative D-dimer and negative troponin. I spoke with Dr. Snowden as the patient was concerned about her blood pressure medicines at home. Patient is to take losartan 50 mg every morning. She will take clonidine twice a day. She is to keep track of her blood pressures through the weekend and if still elevated over [address] call [address] office and Dr. Snowden will likely increase the dose of her losartan. Patient states she has an appointment to see Dr. Snowden next in the office. Discharge Plan Triage Chief Complaint: Hypertension ED Provider: Kirti Sagastume Dx/Rx/DC Orders Clinical Impression: Hypertension Instructions: ED Hypertension, Established Prescriptions: No Action ezetimibe [Zetia] 10 mg tablet 10 mg PO DAILY pantoprazole 20 mg tablet,delayed release (DR/EC) 40 mg PO DAILY escitalopram oxalate 10 mg tablet 10 mg PO DAILY lorazepam 1 mg tablet 1 mg PO PRN PRN (Reason: anxiety) colchicine 0.6 mg tablet 0.6 mg PO BID PRN (Reason: GOUT) cyanocobalamin (vitamin B-12) 1,000 mcg/mL solution 100 mcg IM QMONTH Culturelle 10 billion cell capsule 1 cap PO DAILY sennosides-docusate sodium [Senna with Docusate Sodium] 8.6-50 mg tablet 1 tab-cap PO QHS duloxetine 60 MG capsule 60 mg PO DAILY cholecalciferol (vitamin D3) 5,000 UNIT capsule 5,000 unit PO DAILY ibuprofen 600 MG tablet 600 mg PO 4X/DAY PRN (Reason: Pain) Qty: 30 0RF losartan 50 mg Tablet 50 mg PO DAILY Primary Care Provider: Ashli Snowden Referrals: Ashli Snowden DO [Primary Care Provider] - Keep [place] appointment Activity Restrictions/Additional Instructions: As discussed, take your losartan every morning. Start taking your clonidine twice a day. Keep track of your blood pressures through the weekend. If your systolic blood pressure remains in the 150s or higher please call the doctor's office on Saturday and her losartan dose will likely be changed. Disposition Disposition: Home, Self Care
--- NOTE | 2022-06-01 18:38 | RAD_ITS ---
STUDY: PORTABLE AP UPRIGHT CHEST X-RAY OF 1830 HOURS ON 06/01/2022 REASON FOR EXAM: 67-year-old female with chest pain. TECHNIQUE: A single view portable AP upright chest x-ray was performed per protocol. COMPARISON: 04/27/2018. FINDINGS: Lordotic view. Borderline mild cardiomegaly without heart failure. No pulmonary infiltrates, atelectasis, effusion, or pulmonary mass lesions. No pneumonia, pneumonitis or bronchitis. No subdiaphragmatic abnormalities. No significant interval change since the previous study of 04/27/2018. RAD/Chest 1 View (Portable) IMPRESSION: 1. Borderline to mild cardiomegaly without heart failure. 2. No other evidence of active cardiopulmonary pulmonary disease: no pneumonia, pneumonitis, bronchitis or pulmonary mass lesions. 3. No significant interval change since the previous study of 04/27/2018. Electronically Signed: Keo Wiggins MD at 18:58 EDT ,
[2022-06-01 18:42] VITALS: O2SAT 97
[2022-06-01 18:52] LABS: Anion Gap 8 (5-15); BUN 12 mg/dL (7-18); BUN/Creat Ratio 12.3 RATIO (10-20); Calcium,Total 8.8 mg/dL (8.5-10.1); Chloride 108 mmol/L (98-107); Creatinine, Serum 0.98 mg/dL (0.55-1.02); EST Glomerular Filtration Rate 61 mL/min (>60); Est Glom Filt Rate - Afr Amer 73 mL/min (>60); Estimated Creatinine Clearance 46.08 ml/min; Glucose 135 mg/dL (74-106); Potassium 3.3 mmol/L (3.5-5.1); Sodium Level 141 mmol/L (136-145); Troponin-I HS 7 pg/mL (3.0-54.0)
[2022-06-01 20:35] VITALS: BP 189/99
[2022-06-01] MEDS: Labetalol (Prefilled) 20 MG/4 ML 10 MG IV (20:38)
[2022-06-01] MEDS: Potassium Chloride Oral Tablet 20 MEQ 40 MEQ PO (20:38)
[2022-06-01 21:21] VITALS: BP 173/91; PULSE 65; RESP 16; O2SAT 98
[2022-06-01 21:45] VITALS: BP 162/88; PULSE 65
[2022-06-01 23:29] VITALS: BP 164/86; PULSE 66
[2022-06-02] MEDS: Ketorolac 15 MG/ML Vial IV (00:01)
[2022-06-02 00:07] VITALS: BP 179/100
== END 2022-06-02 00:08 | disposition home or self-care (01) ==
PROVIDERS: Emergency Provider Emergency Medicine; PCP Family Medicine; Visit Provider Emergency Medicine
DX: I10 Essential (primary) hypertension (principal); K21.9 Gastro-esophageal reflux disease without esophagitis; M19.90 Unspecified osteoarthritis, unspecified site; F17.210 Nicotine dependence, cigarettes, uncomplicated; Z79.899 Other long term (current) drug therapy; Z82.49 Family history of ischemic heart disease and other diseases of the circulatory system
CPT/HCPCS: 71045; 80048; 84484; 85025; 85379; 93005; 96374; 96375; 99284; J7030; A4216

== ENCOUNTER → 2022-06-20 | Outpatient (CLI) | payer MEDICARE, MEDICAID, SELFPAY ==
[2022-06-20 10:17] LABS: International Normalized Ratio 0.9; Prothrombin Time (Protime)PT. 12.1 SECONDS (11.7-14.9)
[2022-06-20 10:18] LABS: Partial Thromboplast Time 32.4 Seconds (24.1-36.2)
[2022-06-20 10:25] LABS: AST(SGOT) 16 U/L (15-37); Alanine Aminotransfer ALT/SGPT 22 U/L (13-56); Albumin, Serum 3.4 g/dL (3.2-5.0); Alkaline Phosphatase 124 U/L (45-117); Anion Gap 7 (5-15); BUN 15 mg/dL (7-18); BUN/Creat Ratio 13.3 RATIO (10-20); Calcium,Total 9.3 mg/dL (8.5-10.1); Chloride 106 mmol/L (98-107); Cholesterol 234 mg/dL (200); Creatinine, Serum 1.13 mg/dL (0.55-1.02); EST Glomerular Filtration Rate 51 mL/min (>60); Est Glom Filt Rate - Afr Amer 62 mL/min (>60); Globulin 3.6 g/dL (2.2-4.2); Glucose 119 mg/dL (74-106); High Density Lipoprotein 32 mg/dL; Magnesium 2.7 mg/dL (1.6-2.6); Potassium 3.7 mmol/L (3.5-5.1); Sodium Level 142 mmol/L (136-145); Triglycerides 255 mg/dL; Very Low Density Lipoprotein 51 mg/dL (5-40)
== END | disposition home or self-care (01) ==
PROVIDERS: PCP Family Medicine; Referring Provider Internal Medicine Cardiovascular Disease; Visit Provider Internal Medicine Cardiovascular Disease
DX: I10 Essential (primary) hypertension (principal); I20.9 Angina pectoris, unspecified; R06.02 Shortness of breath; R94.31 Abnormal electrocardiogram [ECG] [EKG]; E78.2 Mixed hyperlipidemia; I87.2 Venous insufficiency (chronic) (peripheral)
CPT/HCPCS: 36415; 80048; 80061; 80076; 83735; 85610; 85730

== ENCOUNTER → 2022-06-28 | Outpatient (CLI) | payer MEDICARE, MEDICAID, SELFPAY ==
--- NOTE | 2022-06-28 10:53 | ECHOD_ITS ---
Reason For Study: CHEST PAIN Procedure This was a 2D Doppler, Color Flow transthoracic echocardiogram. Exam performed in department. Left Ventricle Normal LV size. Left ventricular systolic function is normal. The estimated ejection fraction is 60 %. No evidence for diastolic dysfunction. No regional wall motion abnormalities noted. Right Ventricle Normal RV size. Normal systolic function. Atria Normal left atrium. Normal right atrium. No doppler evidence for ASD. Mitral Valve There is no mitral annular calcification. Normal mitral valve. Trivial mitral valve insufficiency. Tricuspid Valve Normal tricuspid valve. Trivial tricuspid valve insufficiency. Right ventricular systolic pressure estimated to be 33 mmHg. Aortic Valve The aortic valve is not well visualized. Pulmonic Valve The pulmonic valve is not well visualized. Trivial pulmonic valve insufficiency. Great Vessels Normal sized aortic root. Pericardium/Pleural Trivial pericardial effusion. There are no echocardiographic indications of cardiac tamponade. MMode/2D Measurements & Calculations LVIDd: 4.8 cm IVSd: 1.2 cm Ao root diam: 3.4 cm LVIDs: 2.9 cm LVPWd: 1.1 cm RVDd: 2.5 cm FS: 39.1 % LAV(MOD-bp): 53.7 ml LA A4 area: 18.2 cm2 LA dimension(2D): 4.2 cm LAV(MOD-bp) Indexed: 27.5 ml/m2 LAV(MOD-sp2): 54.0 ml LAV(MOD-sp4): 50.2 ml RA A4 area: 13.9 cm2 Time Measurements MV dec time: 0.27 sec Doppler Measurements & Calculations MV E max bert: 62.1 cm/sec Lat Peak E' Bert: 7.3 cm/sec Med Peak E' Bert: 8.0 cm/sec MV A max bert: 80.7 cm/sec E/E' lat: 8.6 E/E' med: 7.7 MV E/A: 0.77 MV dec slope: 231.5 cm/sec2 Ao V2 max: 147.9 cm/sec LV V1 max: 127.0 cm/sec Ao max P.7 mmHg LV V1 max P.5 mmHg Ao V2 mean: 101.3 cm/sec LV V1 mean P.5 mmHg Ao mean P.7 mmHg LV V1 mean: 87.9 cm/sec Ao V2 VTI: 33.8 cm LV V1 VTI: 26.7 cm PA V2 max: 116.2 cm/sec TR max bert: 275.1 cm/sec TR max P.3 mmHg ECHO/Echo Complete Interpretation Summary Left ventricular systolic function is normal. The estimated ejection fraction is 60 %. Trivial mitral valve insufficiency. Trivial tricuspid valve insufficiency. Trivial pulmonic valve insufficiency. Trivial pericardial effusion. There are no echocardiographic indications of cardiac tamponade. Right ventricular systolic pressure estimated to be 33 mmHg. No evidence for diastolic dysfunction. Ordering Physician: Jackie^Earl^^^ Referring Physician: Ashli Snowden Performed By: Brandee Romero, RDSTERLING, RVT
== END | disposition home or self-care (01) ==
LOC: CVS 10:52
PROVIDERS: PCP Family Medicine; Referring Provider Internal Medicine Cardiovascular Disease; Visit Provider Internal Medicine Cardiovascular Disease
DX: R06.02 Shortness of breath (principal); I20.9 Angina pectoris, unspecified; R94.31 Abnormal electrocardiogram [ECG] [EKG]; E78.2 Mixed hyperlipidemia; I10 Essential (primary) hypertension
CPT/HCPCS: 93306

== ENCOUNTER 2022-07-03 07:27 | Day surgery (SDC) | payer MEDICARE, MEDICAID, SELFPAY ==
--- NOTE | 2022-06-28 14:34 | HP.PCM_ITS ---
History and Physical Date of Admission: 07/03/22 [facility] [address] [place] [address] OFFICE VISIT Date of Service:? 06/19/22 MR#: [id number] Acct: [id number] Name:SHANE VASQUEZ Rep #: [id number] : 1955 ? Provider: Dr. Earl Mejia MD Age/Sex:? 67/F ?Location: [facility] Status: Signed HPI HPI History of Present Illness Surgical H&P: Yes Details: This is a 67-year-old white female who presents today for outpatient ca rdiovascular consultation based upon a combination of concerns with chest discomfort concerning for angina pectoris, shortness of breath/dyspnea concerning for angina pectoris equivalent, hyperlipidemia, and hypertension superimposed upon a family history of cardiovascular disease/CAD requiring revascularization therapy in both her father and her son.? She states for some time now she has been having chest discomfort.? She describes this as a jaw discomfort with radiation towards her left precordial area and down her left upper extremity that can be associated with nausea as well as diaphoresis.? These episodes can occur at rest, at night, as well as with exertion.? She also has episodes of shortness of breath/dyspnea with exertion.? There has been no orthopnea or PND or ongoing peripheral pitting edema.? She has had no near- syncope or syncope. At the same time she states she has had difficult to control blood pressure.? She has been placed on medical management which included clonidine/Catapres and losartan.? She states based upon her symptoms additional medicine with isosorbide/Imdur was added.? However she states that she has been taking this in the evening and she gets tremendous headaches following it.? She does not believe she is tolerating it well.? She does not recall being on other types of medicine such as hydrochlorothiazide diuretics or calcium channel antagonist. She had an ECG performed on 06-01-2022.? She had sinus rhythm with ST and T wave abnormality that was concerning for myocardial ischemia in the anterior distribution.? These changes appear to be somewhat more prominent compared to an ECG from 04-27-2018. She had a previous transthoracic echocardiogram performed on 09-08-2012.? Her left ventricle at that time was reported normal with an LVEF of 55%. She had a pharmacologic stress nuclear imaging study performed on 09-08-2012.? That study was read as negative for evidence of myocardial ischemia. She had a dobutamine stress echocardiogram performed on 02-02-2019.? That study was read as negative.? She had a recent chest x-ray performed on 06-01-2022.? It were reported that she had borderline to mild cardiomegaly without heart failure with no evidence of active cardiopulmonary disease and no significant interval change since the previous study of 04-27-2018. She had recent laboratory studies performed on 06-01-2022.? It was noted that her potassium level was 3.3.? Her BUN and creatinine were reported within normal range at 12 and 0.98.? She had a TSH level in 04-17-2022 which was reported at normal at 2.16. Intake Vital Signs ? 06/01/2217:45 06/19/2215:20 06/19/2215:22 06/19/2215:50 Height 5 ft 3 in 5 ft 3 in 5 ft 3 in ? Weight: ? ? 210 lb ? BMI ? ? 37.2 ? BP ? ? 126/75 H 132/80 H Blood Pressure Location ? ? Lt brachial Lt brachial Position ? ? Sitting Sitting Respiration ? ? 18 ? Pulse ? ? 85 ? Pulse Source ? ? Monitor ? Comment ? ? Red large adult automated cuff Red large adult manual cuff Intake Visit Reasons:?Eval for possible cath/ref. [address] Inspector Required: No Accompanied by: None Is patient in pain?: No Allergies amoxicillin trihydrate [From Augmentin] Allergy (Verified 06/01/22 17:44) Diarrheacodeine Allergy (Verified 06/01/22 17:44) Hiveslatex Allergy (Verified 06/01/22 17:44) Rashpotassium clavulanate [From Augmentin] Allergy (Verified 06/01/22 17:44) Diarrheabupropion [From Wellbutrin] Adverse Reaction (Intermediate, Verified 06/01/22 17:44) ANGRY,IRRITABLEdesvenlafaxine [From Pristiq] Adverse Reaction (Unknown, Verified 06/11/22 18:19) unknownniacin Adverse Reaction (Verified 06/01/22 17:44) EatofCuybntf-GPT-QhR Reductase Inhibitor [Lxobkhs-Dfy-Cvt Reductase Inhibitor] Adverse Reaction (Verified 06/01/22 17:44) Other Medications duloxetine 60 mg capsule,delayed release 60 mg PO DAILY 03/18/14 [History Confirmed 06/19/22] cholecalciferol (vitamin D3) 125 mcg (5,000 unit) capsule 5,000 unit PO DAILY 03/26/17 [History Confirmed 06/19/22] ibuprofen 600 mg tablet 600 mg PO 4X/DAY PRN Pain #30 tabs 11/10/18 [Rx Confirmed 06/19/22] ezetimibe 10 mg tablet (Zetia) 10 mg PO DAILY 09/15/19 [History Confirmed 06/19/22] escitalopram oxalate 10 mg tablet 10 mg PO DAILY 09/11/21 [History Confirmed 06/19/22] lorazepam 1 mg tablet 1 mg PO PRN PRN anxiety 09/11/21 [History Confirmed 06/19/22] pantoprazole 20 mg tablet,delayed release 40 mg PO DAILY 09/11/21 [History Confirmed 06/19/22] Lactobacillus rhamnosus GG 10 billion cell capsule (Culturelle) 1 cap PO DAILY 05/08/22 [History Confirmed 06/19/22] colchicine 0.6 mg tablet 0.6 mg PO BID PRN GOUT 05/08/22 [History Confirmed 06/19/22] aspirin 81 mg tablet,delayed release (Adult Low Dose Aspirin) 81 mg PO DAILY 06/11/22 [History Confirmed 06/19/22] isosorbide mononitrate 30 mg tablet,extended release 24 hr 30 mg PO DAILY 06/11/22 [History Confirmed 06/19/22] amlodipine 5 mg tablet 5 mg PO DAILY #30 tabs 06/19/22 [Rx Confirmed 06/19/22] clonidine HCl 0.1 mg tablet 0.1 mg PO BID 06/19/22 [History Confirmed 06/19/22] cyanocobalamin (vitamin B-12) 1,000 mcg capsule 1,000 mcg PO DAILY 06/19/22 [History Confirmed 06/19/22] cyanocobalamin (vitamin B-12) 1,000 mcg/mL injection solution 1,000 mcg IM QMONTH 06/19/22 [History Confirmed 06/19/22] losartan 50 mg tablet 100 mg PO DAILY 06/19/22 [History Confirmed 06/19/22] metoprolol tartrate 25 mg tablet 25 mg PO BID #60 tabs 06/19/22 [Rx Confirmed 06/19/22] sennosides 8.6 mg-docusate sodium 50 mg tablet (Senna with Docusate Sodium) 1 tab-cap PO QHS PRN 06/19/22 [History Confirmed 06/19/22] Ejection fraction %: 55 to 59 PFSH Medical History? Abnormal EKG Alcohol use BRANDI positive Anxiety Arthritis Chest pain Chronic bronchitis Constipation Depression Diarrhea Diverticulitis Essential hypertension Gallstone Gallstones Gastric reflux GERD (gastroesophageal reflux disease) Gout Hemorrhoids History of diverticulitis History of stress test Hoarseness Hypertension Mixed hyperlipidemia Osteoarthritis Septic arthritis of interphalangeal joint of toe of right foot Shortness of breath on exertion Smoker SOB (shortness of breath) Venous stasis dermatitis Wears dentures Surgical History? History of bilateral knee replacement History of cholecystectomy (~09/2021) History of esophagogastroduodenoscopy (EGD) (~09/16/19) History of hysterectomy with oophorectomy Hx of colonoscopy Hx of foot surgery Hx of left cataract extraction Hx of right cataract extraction Hx of rotator cuff surgery Hx of shoulder surgery S/P laparoscopic cholecystectomy Family History? Mother Colon cancer CVA (cerebral vascular accident)Father Heart disease Hypertension High cholesterol Social History? Smoking Status:? Former smoker how long ago did patient quit smoking:? 5 months ago second hand exposure:? No quit status:? has quit before alcohol intake:? current alcohol intake frequency: a few times a month substance use type:? does not use caffeine:? Yes Type: coffee Number of servings: 1 and tea Number of servings: 1 what type of physical activity do you participate in:? none frequency:? does not exercise ROS Const Const: Positive for fatigue and difficulty sleeping (Related to headaches); Negative for weakness, headache(s), frequent falls or excessive sweating Eyes Eyes: Negative for loss of peripheral vision, transient loss of vision, blurry vision, double vision or tunnel vision ENT ENT: Negative for headache(s), dizziness, Nosebleed/epistaxis or balance problems Cardio Chest Pain: Yes Frequency: weekly (Few times per week) Character: dull, squeezing and other (Pressure) Onset: other (Up and active) Location: left chest Duration: minutes (3-5 minutes) and brief Relieving: other (Ativan helps calm her down) Palpitations: No Edema: None Muscle aches with walking: None Resp Respiratory: Positive for SOB with activity and SOB at rest (Sometimes just when talking); Negative for SOB orthopnea\SOB lying down, Cough or paroxysmal nocturnal dyspnea GI GI: Positive for nausea; Negative vomiting, heartburn or black,tarry stools : Negative for hematuria Musc Musc: Negative for muscle aches/ myalgia, muscle weakness, joint pain or balance problems Skin Skin: Negative non-healing lesions, rash or unusual bruising Neuro Neuro: Negative for dizziness, lightheadedness, near syncope, syncope, frequent falls, headache(s), weakness, blurry vision, double vision or lack of coordination Sameer Hematologic/Lymphatic: Negative for easy bleeding or easy bruising Endo Endo: Positive for fatigue; Negative for excessive sweating or increased thirst/drinking Psych Psych: Negative for anxiety or depression Allergy Allergy/Immunology: Negative for hives and Negative for rash Cardiology Exam Const Appearance: cooperative, healthy appearing, comfortable, no acute distress, well developed and well groomed Nutritional Appearance: overweight Orientation: alert, awake and oriented x3 Head Head: normal to inspection, normocephalic and atraumatic Ears: hearing grossly normal bilaterally Nose: external nose normal Face and Sinus: face symmetric Eyes Eyelids: eyelids normal Conjunctivae: conjunctivae normal Pupils: PERRL EOM: EOM intact bilaterally Neck Neck: normal visual inspection and full ROM Carotids: normal carotid upstroke Chest Chest inspection: normal inspection of the chest, symmetric chest movement and normal respiratory effort Auscultation: Bilateral: Clear to Auscultation Cardio Palpation: normal PMI Rate: regular rate Rhythm: regular rhythm Heart sounds: S1 normal and S2 normal GI GI: normal to inspection, soft and bowel sounds present Neuro General: patient alert, patient awake, patient oriented x3 and moves all extremi ties Skin Skin: no rashes or lesions noted Extremities Pulses: Normal: Right Radial Pulse and Left Radial Pulse Lower Extremity Edema: None: Bilateral Psych Psychological: normal affect Supplemental Info Supplemental Information Stress echocardiogram: 02-02-2019 Reason For Study: Chest Pain Stress Results ? Protocol:? Dobutamine Stress Echocardiogram? Maximum Predicted HR: ? 157 bpm ? Target HR: 133 bpm ? % Maximum Predicted HR: 87 % ? DurationHeart Rate ? Stage ? (mm:ss) ? (bpm)? ? BP ? ? Comment ? Baseline ? 73? ? 128/77No Chest Pain ? DSE 10 MCG? 3:27? ? ? 87? ? 136/85No Chest Pain ? DSE 20 MCG? 3:00? ? ? 122 ? 134/69No Chest Pain ? DSE 30 MCG? 2:13? ? ? 136 ? 136/70No Chest Pain ? Recovery ? 90? ? 135/80No Chest Pain ? Stress Duration: ? 8:40 mm:ss ? Maximum Stress HR: 136 bpm ? METS: 1 Baseline Echocardiogram Findings ? Stress Echo Wall motion Data ? Resting WM ? Intermediate WM ? Stress WM ? Resting Wall Motion? Wall Motion Stress No regional wall motion? No regional wall motion abnormalities noted. ? abnormalities noted. Ejection Fraction 55 %.? Ejection Fraction 70 %. Interpretation Summary Resting EKG demonstrates normal sinus rhythm with a rate of 83 bpm normal intervals are noted resting blood pressure 128/77 mmHg. Dobutamine was infused per usual protocol starting at 10 mcg/kg/min increasing in 3-minute increments to a peak of 30 mcg/kg/min. The maximum heart rate attained was 136 bpm which was 87% of maximum predicted heart rate. The patient maintained sinus rhythm throughout the recording at rest and during peak infusion there were nonspecific ST-T wave changes noted we did not meet the criteria for ischemia. The resting blood pressure was 128/77 with a peak blood pressure 143/79. Resting echocardiographic images demonstrated preserved ejection fraction of 55%. Dobutamine was infused per usual protocol and images were obtained at rest, low-dose, and peak dobutamine infusion. There was gradual increase in the ejection fraction to a peak of approximately 75 bpm. No wall motion abnormalities were noted. The test was terminated due to attainment of heart rate. Conclusion: Normal dobutamine echocardiographic stress image Preserved ejection fraction at rest and with dobutamine infusion Ordering Physician: Ashli Snowden Referring Physician: Dejuan Gomez Performed By: Renetta Lockhart [facility] Labs: ?? ? LDL Cholesterol 153 mg/dL (0-130)? H ?? ? HDL Cholesterol 36 mg/dL (40-) L ?? ? Triglycerides 275 mg/dL (-199) H ?? ? VLDL Cholesterol 55 mg/dL (5-40)? H Diagnostics: ?? ? Electrocardiogram ? Stress Echocardiogram ? Abdomen US ? Chest X-Ray ? Pulmonary: ?? ? No Data to Display Assessment and Plan Assessment and Plan (1) Angina pectoris: ?Status:?Acute ?Plan: She does have symptoms concerning for angina pectoris.? Based upon her description this appears to be in an accelerating form. She has undergone previous noninvasive studies as noted above. At the present time she will initiate additional medical therapy by adding metoprolol tartrate 25 mg twice daily. She appears to be intolerant to her nitrates and thus these will be placed on hold. It was felt prudent that she be reassessed with respect to her left ventricular wall motion and systolic function with a transthoracic echocardiogram. It was also felt reasonable that she proceed with further definitive evaluation of her coronary anatomy with a diagnostic cardiac catheterization.? The proc edure and risk were discussed with her.? She was agreeable to this approach. (2) SOB (shortness of breath): ?Status:?Acute ?Plan: She does have shortness of breath and dyspnea with exertion.? This may be an angina pectoris equivalent. Thus she will continue evaluation and care as noted. (3) Abnormal EKG: ?Status:?Acute ?Plan: She does have an abnormal ECG. Her more recent ECG does suggest T wave changes that raise concern about myocardial ischemia in the anterior distribution. She will proceed with evaluation as noted above. (4) Mixed hyperlipidemia: ?Status:?Acute ?Plan: She will be asked to have a future fasting lipid profile to reassess her lipid labs. If she is intolerant to statins and if other medicine such as Zetia is not beneficial to her then she may need to be considered for a PCSK9 inhibitor. (5) Essential hypertension: ?Status:?Acute ?Plan: Her blood pressure recordings at home have been elevated with systolic blood pressures from 140 mmHg to 150+ millimeters mercury.? Her diastolic blood pressures have been 80mmHg to 90+ millimeters mercury. At the present time her medicines will be altered. She will initiate additional therapy with amlodipine at 5 mg p.o. daily. She will continue her other medicines with the exception of placing her isosorbide/Imdur on hold based upon her continued headaches. She will have further evaluation with an echocardiogram to assess her left ventricular wall thickness and function. She will also be asked to have a renal artery duplex study performed to evaluate for any obvious renal artery stenosis contributing to this issue. ? ? ? Orders: Orders Left Heart Cath/COR/LV Percut Today E78.2 - Mixed hyperlipidemia, I10 - Essential (primary) hypertension, I20.9 - Angina pectoris, unspecified, R06.02 - Shortness of breath, R07.9 - Chest pain, unspecified, R94.31 - Abnormal electrocardiogram [ECG] [EKG] ? Echo Complete Today E78.2 - Mixed hyperlipidemia, I10 - Essential (primary) hypertension, I20.9 - Angina pectoris, unspecified, R06.02 - Shortness of breath, R94.31 - Abnormal electrocardiogram [ECG] [EKG] ? Renal Artery Duplex Ultrasound Today E78.2 - Mixed hyperlipidemia, I10 - Essential (primary) hypertension, I20.9 - Angina pectoris, unspecified, R06.02 - Shortness of breath, R94.31 - Abnormal electrocardiogram [ECG] [EKG] ? Partial Thromboplast Time Today E78.2 - Mixed hyperlipidemia, I10 - Essential (primary) hypertension, I20.9 - Angina pectoris, unspecified, R06.02 - Shortness of breath, R94.31 - Abnormal electrocardiogram [ECG] [EKG] ? Prothrombin Time w/INR Today E78.2 - Mixed hyperlipidemia, I10 - Essential (primary) hypertension, I20.9 - Angina pectoris, unspecified, I87.2 - Venous insufficiency (chronic) (peripheral), R06.02 - Shortness of breath, R94.31 - Abnormal electrocardiogram [ECG] [EKG] ? Lipid Profile 1 Day E78.00 - Pure hypercholesterolemia , unspecified, E78.2 - Mixed hyperlipidemia, I10 - Essential (primary) hypertension, I20.9 - Angina pectoris, unspecified, R06.02 - Shortness of breath, R94.31 - Abnormal electrocardiogram [ECG] [EKG] ? Liver Profile 1 Day E78.00 - Pure hypercholesterolemia , unspecified, E78.2 - Mixed hyperlipidemia, I10 - Essential (primary) hypertension, I20.9 - Angina pectoris, unspecified, R06.02 - Shortness of breath, R94.31 - Abnormal electrocardiogram [ECG] [EKG] ? Basic Metabolic Profile (BMP) Today I10 - Essential (primary) hypertension ? Magnesium Today I10 - Essential (primary) hypertension ? Medications: New amlodipine 5 mg? PO DAILY 30 tabs 3RF ? ? metoprolol tartrate 25 mg? PO BID 60 tabs 3RF ? ? On Hold isosorbide mononitrate ER ?? Hold Comment:? Order Changed 30 mg? PO DAILY ? ? Plan Details Additional Comments: The above was discussed and reviewed with the patient.? She was agreeable to this approach. Thank you for allowing me to participate in the care of your patient.? Please don't hesitate to call if any issues arise. This note was generated using a voice recognition system and there may be incorrect words, spelling or punctuation that were not noted when reviewing the office note prior to saving. Follow Up: ? ? 6 Weeks (PFM ) COVID (Procedure Consent) Procedure Criteria Procedure Criteria: Yes Elective The surgeon/proceduralist and patient have discussed in detail the risk of exposure to and/or potential harm posed by the COVID-19 virus with having a surgery/procedure at this time versus the risk of? delaying the surgery/procedure. It is not possible to know either the risk of delaying the surgery or procedure or chance of getting an infection with perfect accuracy, but a joint decision was made between the patient and the surgeon/proceduralist ?to proceed at this time with the scheduled surgery/procedure as indicated on the consent form. Coding Level of Care Code Off vis,new,level 5 Diagnoses Angina pectoris? I20.9 SOB (shortness of breath)? R06.02 Abnormal EKG? R94.31 Mixed hyperlipidemia? E78.2 Essential hypertension? I10 Coding Level of Care Code Off vis,new,level 5 Diagnoses Angina pectoris? I20.9 SOB (shortness of breath)? R06.02 Abnormal EKG? R94.31 Mixed hyperlipidemia? E78.2 Essential hypertension? I10 06/19/22 1650 <Electronically signed by Earl Mejia MD> Date Earl Mejia MD Cosigner Signature: Date (if applicable) CC:? Dr. Ashli Snowden, DO ~ Assessment & Plan Addt'l Comments Addendum: The patient has undergone subsequent evaluation with a transthoracic echocardiogram. The results are noted below. Interpretation Summary Left ventricular systolic function is normal. The estimated ejection fraction is 60 %. Trivial mitral valve insufficiency. Trivial tricuspid valve insufficiency. Trivial pulmonic valve insufficiency. Trivial pericardial effusion. There are no echocardiographic indications of cardiac tamponade. Right ventricular systolic pressure estimated to be 33 mmHg. No evidence for diastolic dysfunction. The patient has been previously asked to proceed with further definitive cardiovascular diagnostic evaluation with diagnostic cardiac catheterization. The procedure and risks of been discussed with the patient. She was agreeable to this approach. I have re-examined the patient. There are no clinical changes since date of exam ?
[2022-07-02 08:37] VITALS: BMI 37.2
--- NOTE | 2022-07-05 12:12 | CL.D_ITS ---
Patient Name: SHANE CRUZ Study Date: 07/03/2022 Performing: Earl Mejia MD Ht: 62.99 inches 160 cm : 1955 Wt: 209.44 lbs 95 kg Age: 67 Gender: female BSA: 1.97 PROCEDURE(S) PERFORMED DC02-(08615)[facility] CLINICAL PROFILE AND INDICATIONS Indications: Worsening Angina Heart Failure: None Stress/Imaging Stress/Image Study Performed: No Angina Classification Anginal Classification w/in 2 Weeks: CCS III CAD Presentations: Other: worsening angina CONCLUSIONS Elevated Left Ventricular End Diastolic Pressure (mild) [place] Multivessel CAD (non obstructive) RECOMMENDATIONS Risk factor modification Medical therapy DESCRIPTION OF PROCEDURE The patient arrived to the procedure lab. The risks and benefits of the procedure as well as a full d escription of our services here and current unavailability of surgical backup were fully explained to the patient and/or their significant other prior to the catheterization. The Timeout was completed, verifying the correct patient and procedure. The patient's procedural site was prepped and draped in the usual fashion. Local anesthetic was given subcutaneously to right radial region with Lidocaine 2% . Using a modified Seldinger technique, arterial access was obtained via the right radial artery, a 6 Fr sheath was inserted. Right Coronary Artery selective angiography was then performed in multiple v iews using a 5 Fr. 4.0 Boston catheter. LV to AO pullback pressures were then recorded. Left Coronary Artery selective angiography was performed in multiple views using a 5 Fr. JL3.5 catheter. CORONARY ANGIOGRAPHY DOMINANCE: Right Dominant LEFT HEART ASSESSMENT Left Ventricular Ejection Fraction: Not assessed Elevated Left Ventricular End Diastolic Pressure (mild) LVEDP: 14 mmHg LEFT MAIN: Angiographically normal LEFT ANTERIOR DESCENDING ARTERY: PROX LAD: Mild luminal irregularities MID LAD: Mild luminal irregularities CIRCUMFLEX ARTERY: OM 1: Proximal - Mild luminal irregularities less than 30%, Mid - Mild luminal irregularities RIGHT CORONARY ARTERY: PROX RCA: Mild luminal irregularities less than 30% COMPLICATIONS No Complications PROCEDURE MEDICATIONS Versed 1 mg IV Fentanyl 50 mcg IV Versed 1 mg IV Fentanyl 50 mcg IV Oxygen: 2 L/min via nasal cannula Heparin given IA 07/03/2022 09:30:28 Verapamil 2.5mg, Ntg 100mcgs, 3000 units of Heparin given IA 07/03/2022 09:30:28 SUMMARY OF HEMODYNAMIC DATA Time AIR REST ECG 07:58:47 Art 142/74 (100) 09:21:35 AO 118/70 (92) SA 09:33:20 LV 126/4, 19 09:35:30 LV 129/9, 14 09:35:37 LVp 138/4, 27 09:35:50 AOp 138/66 (96) 09:35:55 Signed By Earl Mejia MD On 07/03/2022 10:02:58 AM Earl Mejia MD
== END 2022-07-03 11:51 | disposition home or self-care (01) ==
PROVIDERS: PCP Family Medicine; Referring Provider Internal Medicine Cardiovascular Disease; Visit Provider Internal Medicine Cardiovascular Disease
DX: I25.110 Atherosclerotic heart disease of native coronary artery with unstable angina pectoris (principal); I10 Essential (primary) hypertension; E78.2 Mixed hyperlipidemia; R06.02 Shortness of breath; R94.31 Abnormal electrocardiogram [ECG] [EKG]; Z79.82 Long term (current) use of aspirin; Z79.899 Other long term (current) drug therapy; Z87.891 Personal history of nicotine dependence; Z82.49 Family history of ischemic heart disease and other diseases of the circulatory system
CPT/HCPCS: 93458; 99152; 99153; J7040; Q9967; C1769; C1887; C1894

== ENCOUNTER → 2022-07-27 | Outpatient (CLI) | payer MEDICARE, MEDICAID, SELFPAY ==
--- NOTE | 2022-07-27 09:13 | RDU_ITS ---
Reason For Study: HTN Right Renal Artery Left Renal Artery Right renal artery ostium Left renal artery ostium 76.6/21.7 109.5/30.5 RSV/EDV. PSV/EDV. Right renal artery proximal Left renal artery proximal PSV/EDV 146.9/39.3 PSV/EDV. 92/32.7 . Right renal artery mid 135.9/39.3 Left renal artery mid 85.4/26.1 PSV/EDV. PSV/EDV . Right renal artery distal Left renal artery distal 93/25.4 138.1/52.5 PSV/EDV. PSV/EDV. Right Renal Parenchyma Left Renal Parenchyma Upper Pole Medula 28.2/10.4 Left upper pole medulla 29.1/9 PSV/EDV. PSV/EDV . Right upper pole medulla EDR 0.4 . Left upper pole medulla EDR 0.3 . Right upper pole medulla R.I. Left upper pole medulla R.I. 0.69 . 0.63 . UP Cortex 21.8/8.1 PSV/EDV. Upper Marcial Cortx 11.6/4.9 PSV/EDV. Left upper pole cortex EDR 0.4 . Right upper pole cortex EDR 0.4 . Left upper pole cortex R.I. 0.63 . Right upper pole cortex R.I. 0.58 . Left lower Pole medulla 26.4/10.9 Right lower Pole medulla 25.1/9.2 PSV/EDV . PSV/EDV . Left lower pole medulla EDR 0.4 . Right lower pole medulla EDR 0.4 . Left lower pole medulla R.I. 0.59 . Right lower pole medulla R.I. Lower Pole Cortx 16.4/6.3 PSV/EDV. 0.64 . Left lower pole cortex EDR 0.4 . Lower Pole Cortex 12.8/5.5 PSV/EDV. Left lower pole cortex R.I. 0.59 . Right lower pole cortex EDR 0.4 . Left Renal Hilar Right lower pole cortex R.I. 0.57 . LT Hilar avg 43.9/17.3 PSV/EDV . Right Renal Hilar Left hilar acceleration time 50 Right Hilar avg 50.1/17.3 PSV/EDV. m/sec. Right hilar acceleration time 30 Left Renal Dimensions m/sec. Left kidney size 10.40 cm . Right Renal Dimensions Left cortical dimension 1.66 cm . Right kidney size 10.30 cm . Right cortical dimension 1.83 cm . Aorta Proximal abdominal aorta 1.64 x 1.66 cm . Proximal abdominal aorta peak systolic velocity is 103.9 cm/sec . Distal abdominal aorta 1.24 x 1.26 cm . Distal abdominal aorta peak systolic velocity is 107.6 cm/sec . VL/Renal Artery Duplex Ultrasound Interpretation Summary Normal proximal aortic diameter of 1.64 x 1.66 cm. Aortic velocity both proxima lly and distally just elevated above 100 cm/s flow which invalidates renal artery to aortic ratios. Less than 60% stenosis bilateral renal arteries. Maintained right renal length of 10.3 cm Maintained left renal length of 10.4 cm Ordering Physician: Earl Mejia Referring Physician: Ashli Snowden Performed By: Kandace Cooper RVT
== END | disposition home or self-care (01) ==
LOC: CVS 08:56
PROVIDERS: PCP Family Medicine; Referring Provider Internal Medicine Cardiovascular Disease; Visit Provider Internal Medicine Cardiovascular Disease
DX: I10 Essential (primary) hypertension (principal); I20.9 Angina pectoris, unspecified; R06.02 Shortness of breath; R94.31 Abnormal electrocardiogram [ECG] [EKG]; E78.2 Mixed hyperlipidemia
CPT/HCPCS: 93975

== ENCOUNTER → 2022-07-30 | Outpatient (CLI) | payer MEDICARE, MEDICAID, SELFPAY ==
--- NOTE | 2022-07-30 10:35 | RAD_ITS ---
STUDY: X-RAY CHEST REASON FOR EXAM: Female, 67 years old. COUGH/CRACKLES TECHNIQUE: PA or AP and lateral COMPARISON: 04/27/2020 8:00 PM FINDINGS: The lungs are clear and expanded. There is no demonstrated pleural abnormality. Normal size heart. Mildly tortuous descending aorta. Devorah normal. Normal visualized pulmonary arteries. Normal visualized aortic arch and descending thoracic aorta. Normal visualized thoracic spine. Normal visualized ribs, clavicles, and shoulders. There is no demonstrated abnormality of the visualized soft tissue structures of the upper abdomen. RAD/Chest PA and Lateral IMPRESSION: No acute cardiopulmonary disease. No significant change. Electronically Signed: Leonardo Marcial MD, AARON at 10:46 EDT ,
== END | disposition home or self-care (01) ==
PROVIDERS: PCP Family Medicine; Referring Provider Family Medicine; Visit Provider Family Medicine
DX: R05.9 Cough, unspecified (principal)
CPT/HCPCS: 71046

== ENCOUNTER 2022-09-26 07:04 | Day surgery (SDC) | payer MEDICARE, MEDICAID, SELFPAY ==
[2022-09-26] VITALS (7 sets, daily range): BP systolic 108–130; BP diastolic 66–82; PULSE 65–72; RESP 16; TEMP 35.9–36.4; O2SAT 95–99; BMI 37.8
--- NOTE | 2022-09-26 07:21 | HP.PCM_ITS ---
History and Physical Date of Admission: 09/26/22 Date of Service:? 09/19/22 MR#: [id number] Acct: [id number] Name:SHANE VASQUEZ Rep #: [id number] : 1955 ? ? Provider: Dr. Elsi Schultz MD Age/Sex:? 67/F ? ? Location: [facility] Status: Signed Intake Vital Signs ? 09/19/2208:46 Height 5 ft 3 in Weight: 217 lb 6 oz BMI 38.5 BP 122/81 H Blood Pressure Location Rt popliteal Position Sitting Respiration 17 Pulse 85 Pulse Source Monitor Temp 97.2 F L Temp Source Temporal Pulse Oximetry (%) 97 Oxygen Delivery Method room air Intake Visit Reasons:?COLONOSCOPY Chief Complaint: colonoscopy Allergies amoxicillin trihydrate [From Augmentin] Allergy (Verified 09/19/22 08:48) Diarrheacodeine Allergy (Verified 09/19/22 08:48) Hiveslatex Allergy (Verified 09/19/22 08:48) Rashpotassium clavulanate [From Augmentin] Allergy (Verified 09/19/22 08:48) Diarrheabupropion [From Wellbutrin] Adverse Reaction (Intermediate, Verified 09/19/22 08:48) ANGRY,IRRITABLEdesvenlafaxine [From Pristiq] Adverse Reaction (Unknown, Verified 09/19/22 08:48) unknownniacin Adverse Reaction (Verified 09/19/22 08:48) JajquQnzryrr-WDD-FdH Reductase Inhibitor [Gcqefqe-Dow-Xmo Reductase Inhibitor] Adverse Reaction (Verified 09/19/22 08:48) Other Medications duloxetine 60 mg capsule,delayed release 60 mg PO DAILY 03/18/14 [History Confirmed 09/19/22] cholecalciferol (vitamin D3) 125 mcg (5,000 unit) capsule 5,000 unit PO DAILY 03/26/17 [History Confirmed 09/19/22] ibuprofen 600 mg tablet 600 mg PO 4X/DAY PRN Pain #30 tabs 11/10/18 [Rx Confirmed 09/19/22] ezetimibe 10 mg tablet (Zetia) 10 mg PO DAILY 09/15/19 [History Confirmed 09/01 08/23] escitalopram oxalate 10 mg tablet 10 mg PO DAILY 09/11/21 [History Confirmed 09/19/22] lorazepam 1 mg tablet 1 mg PO PRN PRN anxiety 09/11/21 [History Confirmed 09/19/22] pantoprazole 20 mg tablet,delayed release 40 mg PO DAILY 09/11/21 [History Confirmed 09/19/22] Lactobacillus rhamnosus GG 10 billion cell capsule (Culturelle) 1 cap PO DAILY 05/08/22 [History Confirmed 09/19/22] colchicine 0.6 mg tablet 0.6 mg PO BID PRN GOUT 05/08/22 [History Confirmed 09/19/22] aspirin 81 mg tablet,delayed release (Adult Low Dose Aspirin) 81 mg PO DAILY 06/11/22 [History Confirmed 09/19/22] cyanocobalamin (vitamin B-12) 1,000 mcg capsule 1,000 mcg PO DAILY 06/19/22 [History Confirmed 09/19/22] cyanocobalamin (vitamin B-12) 1,000 mcg/mL injection solution 1,000 mcg IM QMONTH 06/19/22 [History Confirmed 09/19/22] losartan 50 mg tablet 100 mg PO DAILY 06/19/22 [History Confirmed 09/19/22] sennosides 8.6 mg-docusate sodium 50 mg tablet (Senna with Docusate Sodium) 1 tab-cap PO QHS PRN Constipation 06/19/22 [History Confirmed 09/19/22] evolocumab 140 mg/mL subcutaneous pen injector (Repatha SureClick) 140 mg subcut Q2W #2 mL 06/22/22 [Rx Confirmed 09/19/22] amlodipine 5 mg tablet 5 mg PO DAILY 08/07/22 [History Confirmed 09/19/22] carvedilol 6.25 mg tablet 6.25 mg PO BID #60 tabs 08/07/22 [Rx Confirmed 09/19/22] PFSH Medical History?(Updated 09/20/22 @ 09:[address] Elsi Schultz MD) Abnormal EKG Alcohol use BRANDI positive Anxiety Arthritis Chest pain Chronic bronchitis Constipation Depression Diarrhea Diverticulitis Essential hypertension Gallstone Gallstones Gastric reflux GERD (gastroesophageal reflux disease) Gout Hemorrhoids History of diverticulitis History of left heart catheterization (LHC) (~07/03/22) History of stress test Hoarseness Hypertension Mixed hyperlipidemia Osteoarthritis Septic arthritis of interphalangeal joint of toe of right foot Shortness of breath on exertion Smoker SOB (shortness of breath) Venous stasis dermatitis Wears dentures Surgical History? History of bilateral knee replacement History of cholecystectomy (~09/2021) History of esophagogastroduodenoscopy (EGD) (~09/16/19) History of hysterectomy with oophorectomy Hx of colonoscopy Hx of foot surgery Hx of left cataract extraction Hx of right cataract extraction Hx of rotator cuff surgery Hx of shoulder surgery S/P laparoscopic cholecystectomy Family History? Mother Colon cancer CVA (cerebral vascular accident)Father Heart disease Hypertension High cholesterol Social History? Smoking Status:? Former smoker how long ago did patient quit smoking:? 5 months ago second hand exposure:? No quit status:? has quit before alcohol intake:? current alcohol intake frequency: a few times a month substance use type:? does not use caffeine:? Yes Type: coffee Number of servings: 1 and tea Number of servings: 1 what type of physical activity do you participate in:? none frequency:? does not exercise HPI HPI HPI: 67-year-old female presents for diagnostic colonoscopy due to left lower quadrant pain occasional right, constipation/diarrhea.? Patient had a colonoscopy 7-8 years ago was negative per patient except for she did have diverticulosis on exam.? Patient has been taking the Protonix 40 mg p.o. daily since after her gallbladder surgery.? Patient states she only occasionally has some nausea maybe once a week.? Patient states she can have some blood in her stools as she does have hemorrhoids but she has no pain with her hemorrhoids.? Patient states her left lower quadrant pain she can occasionally have daily but definitely weekly-not obviously associated with movement or diet.? Patient's mom did have colon cancer twice in her late 70s.? Patient states bowel movements range between diarrhea and constipation/hard small stools.? Patient is unsure amount of fiber she gets in her diet but does try to eat fruits and vegetables/whole wheat bread. ROS General General: Yes weight change and fatigue; No appetite, colon cancer or breast cancer HEENT HEENT: No difficulty swallowing, eye injury, eye surgery, swollen glands or hoarseness Endo Endocrine: No thyroid disease, diabetes mellitus, thyroid cancer, Hair loss, hea t intolerance or cold intolerance Skin Skin: No rash or changing moles Musc Musculoskeletal: Yes arthritis and gout; No back problems, rheumatoid arthritis or joint pain Cardio Cardiovascular: Yes high blood pressure; No murmur, pacemaker, heart disease, atrial fibrillation, heart attack, heart stent, palpitations, shortness of breat with exertion or chest pain Psych Psychiatric: Yes depression and anxiety; No hearing voices Resp Respiratory: Yes shortness of breath, No sleep apnea, No cough, No COPD, No asthma, No emphysema and No wheezing Gastro Gastrointestinal: Yes abdominal pain, Yes nausea or vomiting, Yes diarrhea, Yes constipation, Yes blood in stool, Yes acid reflux, Yes hemorrhoids, No ulcers, No gallbladder problem and No black,tarry stools Sameer Hematologic: No blood thinners, No blood disorders, No bleeding, No anemia and No blood clots Neuro Neurologic: No numbness and No tingling Exam Const General: cooperative, healthy appearing and no acute distress Nutritional Appearance: well nourished [facility] Head: normal to inspection Resp Effort & Inspection: normal respiratory effort Auscultation: clear to auscultation bilaterally Cardio Rate: regular rate Rhythm: regular rhythm GI Inspection: non-distended Palpation: soft, no guarding and nontender Skin General: no rashes or lesions noted Neuro General: patient alert, patient awake and patient oriented x3 Extrem General: no clubbing, cyanosis or edema Psych Affect: normal affect Assessment and Plan Assessment and Plan (1) LLQ pain: ?Status:?Acute (2) Diarrhea: ?Status:?Acute (3) Constipation: ?Status:?Acute Plan Discussed with patient importance of fiber in her diet and trying to track to see exactly how much she is actually getting to make sure that it is adequate as that could be an easier fix for the constipation.? Unsure about the etiology of the left lower quadrant pain as it can it comes and goes patient does have diverticulosis that she is aware of.? Currently nontender in the left lower quadrant on exam. I have discussed the above with the patient. I have offered the patient colonoscopy for evaluation. I have explained the risks/benefits of the procedure and described the procedure.? I have discussed the risks with the patient, including but not limited to:? infection, bleeding, perforation of the GI tract requiring emergency surgery, inability to complete the procedure, injury to any internal organs, complications of anesthesia, etc. - the patient understands and agrees to proceed. I have answered all the patient's questions to the patient's satisfaction and the patient has no further questions. The patient has been given instructions for the colon cleansing preparation.? 2 days of clears with 4 Dulcolax the first day and then the Dulcolax MiraLAX prep the second day. Elsi Schultz M.D. Pager: [phone] [facility] [address] [place] [address], [address] [place] [address] Office: [phone] Coding Level of Care Code Off vis,est,level 3 Diagnoses LLQ pain? R10.32 Diarrhea? R19.7 Constipation? K59.00 09/20/22 0941 <Electronically signed by Elsi Schultz MD> Date Elsi Schultz MD
[2022-09-26] MEDS: Lactated Ringers 1,000 ML 15 ML IV (07:34)
--- NOTE | 2022-09-26 08:15 | COLBX_PTH ---
PATIENT: SHANE CRUZ LOC: EN U#:[id number] AGE/SX: 67/F ROOM: RE09/26/[address]: Dr. Elsi Schultz MD : 1955 BED: DIS: 09/26/2022 SPEC #: [id number] RECD: 09/26/22 10:23 STATUS: DONAVAN PABLO #: [id number] ELENO: 09/26/22 08:[address]: Elsi Schultz DEPT: SURGICAL PATHOLOGY RECD BY: Chacorta Augustine ENTERED: 09/26/22 11:34 SP TYPE: COLON BX OTHR DR: Dr. Ashli Snowden, DO Tissues: A - Cecum, NOS B - Rectum, NOS Procedures: Surgery Specimen Level IV HEADER OPERATION: Colonoscopy with biopsy (MAC) PRE-OP DIAGNOSIS: LLQ pain, diarrhea, constipation TISSUE SUBMITTED: A ? Cecal biopsy, B ? Rectal polyp MICROSCOPIC DIAGNOSIS A. Cecum, biopsy: Focal acute colitis. See comment. B. Rectal polyp, biopsy: Hyperplastic polyp. AM:estrellita 09/27/2022 COMMENT A. Rare cryptitis is present. No crypt abscesses, ulcers, transmural lymphoid aggregates or granulomas are identified. Clinical correlation is suggested. MICROSCOPIC DESCRIPTION Slides are reviewed. GROSS DESCRIPTION A - Received in fixative is one container labeled with the patient's name and designated cecal biopsy. The specimen consists of one irregular fragment of light daniels soft tissue that measures 0.5 x 0.2 x 0.1 cm. The specimen is totally submitted in one cassette. B - Received in fixative is one container labeled with the patient's name and designated rectal polyp. The specimen consists of multiple irregular fragments of light daniels soft tissue that in aggregate measure 0.5 x 0.2 x 0.1 cm. The specimen is totally submitted in one cassette. / AM:estrellita 09/26/2022 TC:2 CPT: 69816 x2
--- NOTE | 2022-09-26 08:40 | OP.COLON_ITS ---
Patient Name: Bridgett Armijo Procedure Date: 09/26/2022 8:03 AM Date of : 1955 Age: 67 Procedure: Colonoscopy Indications: Abdominal pain in the left lower quadrant, Clinically significant diarrhea of unexplained origin, Incidental constipation noted Providers: Elsi Schultz MD Medicines: Monitored Anesthesia Care Patient Profile: This is a 67 year old female. Last Colonoscopy: 8 years ago. Complications: No immediate complications. Procedure: Pre-Anesthesia Assessment: - Prior to the procedure, a History and Physical was performed, and patient medications and allergies were reviewed. The patient's tolerance of previous anesthesia was also reviewed. The risks and benefits of the procedure and the sedation options and risks were discussed with the patient. All questions were answered, and informed consent was obtained. Prior Anticoagulants: The patient has taken aspirin, last dose was 1 day prior to procedure. ASA Grade Assessment: Per anesthesia. After reviewing the risks and benefits, the patient was deemed in satisfactory condition to undergo the procedure. After I obtained informed consent, the scope was passed under direct vision. Throughout the procedure, the patient's blood pressure, pulse, and oxygen saturations were monitored continuously. The pediatric colonoscope was introduced through the anus and advanced to the terminal ileum. The colonoscopy was performed without difficulty. The patient tolerated the procedure well. The quality of the bowel preparation was good. Scope In: 8:14:02 AM Scope Withdrawal Time 0 hours 9 minutes 7 seconds Scope Out: 8:30:50 AM Total Procedure Duration Time 0 hours 16 minutes 48 seconds Findings: The perianal and digital rectal examinations were normal. A localized area of mildly small white lesions mucosa was found in the cecum. Biopsies were taken with a cold forceps for histology. Multiple small-mouthed diverticula were found in the sigmoid colon. The exam was otherwise without abnormality. A less than 5 mm polyp was found in the rectum. The polyp was sessile. The polyp was removed with a cold biopsy forceps. Resection and retrieval were complete. The terminal ileum appeared normal. Impression: - Small white lesions mucosa in the cecum. Biopsied. - Diverticulosis in the sigmoid colon. - The examination was otherwise normal. - One less than 5 mm polyp in the rectum, removed with a cold biopsy forceps. Resected and retrieved. - The examined portion of the ileum was normal. Recommendation: - Discharge patient to home. - Resume previous diet. - Continue present medications. - Await pathology results. - Await pathology results. - Repeat colonoscopy in 5-10 years for surveillance based on pathology results. Procedure Code(s): --- Professional --- 58546, PT, Colonoscopy, flexible; with biopsy, single or multiple Diagnosis Code(s): --- Professional --- R10.32, Left lower quadrant pain R19.7, Diarrhea, unspecified K57.30, Diverticulosis of large intestine without perforation or abscess without bleeding CPT copyright 2017 [employer]. All rights reserved. The codes documented in this report are preliminary and upon section leader and machine setter review may be revised to meet current compliance requirements. MD lEsi Sellers MD 09/26/2022 8:39:25 AM This report has been signed electronically. Number of Addenda: 0 Note Initiated On: 09/26/2022 8:03 AM
--- NOTE | 2022-09-26 08:41 | OP.CCLET_ITS ---
09/26/2022 Ashli Snowden [address] [facility] [place] [address] Re : Colonoscopy procedure for Bridgettadrián Armijo Dear Dr. Snowden This procedure was performed on Monday, September 26, 2022. My impressions and recommendations are as follows: Impressions : - Small white lesions mucosa in the cecum. Biopsied. - Diverticulosis in the sigmoid colon. - The examination was otherwise normal. - One less than 5 mm polyp in the rectum, removed with a cold biopsy forceps. Resected and retrieved. - The examined portion of the ileum was normal. Recommendations : - Discharge patient to home. - Resume previous diet. - Continue present medications. - Await pathology results. - Await pathology results. - Repeat colonoscopy in 5-10 years for surveillance based on pathology results. My findings are described in the full procedure note, which is enclosed. If I can be of further assistance, please feel free to contact me at Doctor phone number(s): , Work: . Sincerely, MD Elsi Sellers MD 09/26/2022 8:39:25 AM This report has been signed electronically.
== END 2022-09-26 09:26 | disposition home or self-care (01) ==
LOC: EN 07:05 → AC 07:07
PROVIDERS: PCP Family Medicine; Referring Provider Family Medicine; Visit Provider Surgery
PROC: 0DJD8ZZ Inspection of Lower Intestinal Tract, Via Natural or Artificial Opening Endoscopic (ICD-10-PCS; CPT 45378; principal; 2022-09-26 08:10)
DX: K52.9 Noninfective gastroenteritis and colitis, unspecified (principal); K57.30 Diverticulosis of large intestine without perforation or abscess without bleeding; K62.1 Rectal polyp; R10.32 Left lower quadrant pain; K59.00 Constipation, unspecified; I10 Essential (primary) hypertension; F41.9 Anxiety disorder, unspecified; M19.90 Unspecified osteoarthritis, unspecified site; E78.2 Mixed hyperlipidemia; Z90.49 Acquired absence of other specified parts of digestive tract; Z90.710 Acquired absence of both cervix and uterus; Z79.82 Long term (current) use of aspirin; Z79.899 Other long term (current) drug therapy; Z87.891 Personal history of nicotine dependence; Z80.0 Family history of malignant neoplasm of digestive organs
CPT/HCPCS: 45380; 88305; J7120; J2405

== ENCOUNTER → 2023-03-12 | Outpatient (CLI) | payer MEDICARE, MEDICAID, SELFPAY ==
[2023-03-12 12:39] LABS: Absolute Lymphocyte Count 2.16 X10^3/uL (0.83-4.51); Absolute Neutrophil Count 4.6 X10^3/uL (2.0-7.7); Basophil# 0.03 X10^3/uL; Basophil% 0.4 % (0-1); Eosinophil# 0.35 X10^3/uL; Eosinophils% 4.7 % (0-5); Hematocrit 42.8 % (37-47); Hemoglobin 14.3 g/dL (12.0-15.0); Lymphocyte # 2.16 X10^3/ul (0.83-4.51); Lymphocyte % 28.9 % (19-41); Mean Corp Hgb Conc 33.4 g/dL (32-36); Mean Corpuscular Hgb 30.9 pg (27.0-32.0); Mean Corpuscular Volume 92.4 fL (81-99); Mean Platelet Vol. 12.9 fl (6.2-12.0); Monocyte# 0.31 X10^3/uL; Monocyte% 4.1 % (0-10); NRBC Flagged by Analyzer 0 % (0-5); Neutrophil # 4.58 X10^3/uL (2.7-7.7); Neutrophil % 61.2 % (47-70); Platelet Count 182 K/mm3 (150-450); RBC Distribution Width CV 14.6 % (11.6-14.6); RBC Distribution Width SD 49.5 fl (35.1-43.9); Red Blood Count 4.63 M/mm3 (4.2-5.4); White Blood Count 7.5 K/mm3 (4.4-11.0)
[2023-03-12 12:48] LABS: Erythrocyte Sedimentation Rate 17 mm/hr (0-30)
[2023-03-12 12:57] LABS: Vitamin B12 1162 pg/mL (211-911)
[2023-03-12 13:42] LABS: AST(SGOT) 22 U/L (15-37); Alanine Aminotransfer ALT/SGPT 29 U/L (13-56); Albumin, Serum 3.6 g/dL (3.2-5.0); Alkaline Phosphatase 103 U/L (45-117); Anion Gap 7 (5-15); BUN 15 mg/dL (7-18); BUN/Creat Ratio 17.7 RATIO (10-20); CRP 6.89 mg/L (0.0-3.0); Calcium,Total 8.5 mg/dL (8.5-10.1); Chloride 105 mmol/L (98-107); Cholesterol 113 mg/dL (200); Creatinine, Serum 0.85 mg/dL (0.55-1.02); EST Glomerular Filtration Rate 71 mL/min (>60); Est Glom Filt Rate - Afr Amer 86 mL/min (>60); Free T3 2.4 pg/mL (2.18-3.98); Globulin 3.5 g/dL (2.2-4.2); Glucose 145 mg/dL (74-106); High Density Lipoprotein 38 mg/dL; Potassium 3.7 mmol/L (3.5-5.1); Protein, Total 7.1 g/dL (6.4-8.2); Sodium Level 138 mmol/L (136-145); T4 Free Direct 0.94 ng/dL (0.76-1.46); Thyroid Stim Hormone (TSH) 1.56 uIU/mL (0.358-3.74); Triglycerides 223 mg/dL; Uric Acid 7.5 mg/dL (2.6-6.0); Very Low Density Lipoprotein 45 mg/dL (5-40)
[2023-03-13 15:17] LABS: Hemoglobin A1c 6.8 % (3.8-5.6)
== END | disposition home or self-care (01) ==
LOC: MTLAB 11:01
PROVIDERS: PCP Family Medicine; Referring Provider Family Medicine; Visit Provider Family Medicine
DX: E03.9 Hypothyroidism, unspecified (principal); E53.8 Deficiency of other specified B group vitamins; M25.50 Pain in unspecified joint; M10.9 Gout, unspecified; E78.5 Hyperlipidemia, unspecified; R73.01 Impaired fasting glucose; R73.03 Prediabetes; Z51.81 Encounter for therapeutic drug level monitoring
CPT/HCPCS: 36415; 80053; 80061; 82607; 83036; 84439; 84443; 84481; 84550; 85025; 85652; 86140

== ENCOUNTER → 2023-04-16 | Outpatient (CLI) | payer MEDICARE, MEDICAID, SELFPAY ==
--- NOTE | 2023-04-16 16:47 | CT_ITS ---
STUDY: LOW DOSE CT LUNG CANCER SCREENING REASON FOR EXAM: Female, 67 years old. 35 pack-year smoking history. RADIATION DOSAGE (If Supplied By Facility): CTDIvol = ( 3.02 ) mGy, DLP = ( 101.18 ) mGycm TECHNIQUE: No contrast was administered. Low dose technique was utilized (average mAS-38 and kVp 120). 1.25 mm axial source images with a slice interval of 1.25-mm were reconstructed in lung windows. 2.5 mm axial source images with a slice interval of 2.5-mm were reconstructed in lung windows. 5.0 mm axial source images with a slice interval of 5.0-mm were reconstructed in soft tissue windows. COMPARISON: Chest, July 30, 2022. NODULES: Nodule #: 1 Density: Solid Lung location: Right lower lobe: 0.3 cm from pleura Location in series: Series Number: 2 Image: 76 Size - D1 x D2 mm: 3 x 3 mm: 3 mm average diameter Margin: Smooth Shape: Round Calcification: No Fat: No Temporal comparison: None Total lung nodules (excluding granulomas): 1 Emphysema: Diffuse mild emphysematous changes. Endobronchial lesion: None Aorta: Atherosclerotic carotid tortuosity of the thoracic aorta without aneurysm. CORONARY ARTERIES: Coronary artery calcification are seen Heart: Normal Pulmonary artery: Normal Mediastinal nodes: None Other chest and abdominal findings: Degenerative changes of the thoracic spine. CT/Low Dose CT Lung Screening IMPRESSION: Lung-RADS category 2 - Continue annual screening with LDCT in 12 months. IMPORTANT NOTES FOR USE: ACR Lung-RADS Version 1.1 Assessment Categories Release Date: 2018 Category: Coded 0-4 bases on nodule(s) with highest degree of suspicion. Negative screen is defined as categories 1 and 2; a positive screen is defined as categories 3 and 4. Category 3 and 4A nodules that are unchanged on interval CT should be coded as category 2, and individuals returned to screening in 12 months. Category 4X: Category 3 or 4 nodules with additional imaging findings that increase the suspicion of lung cancer, such as spiculation, GGN that doubles in size in 1 year, enlarged lymph notes, etc. Category Modifiers: S (significant finding unrelated to lung cancer) Electronically Signed: Chris May DO at 21:51 EDT Reading Location ID and State: [facility] / [place] Tel [phone], Service support ,
== END | disposition home or self-care (01) ==
LOC: CT 16:46
PROVIDERS: PCP Family Medicine; Referring Provider Family Medicine; Visit Provider Family Medicine
DX: Z12.2 Encounter for screening for malignant neoplasm of respiratory organs (principal); Z87.891 Personal history of nicotine dependence
CPT/HCPCS: 71271

== ENCOUNTER → 2023-05-07 | Outpatient (CLI) | payer MEDICARE, MEDICAID, SELFPAY ==
--- NOTE | 2023-05-07 12:14 | BI_ITS ---
MAMMOGRAPHY - BILATERAL SCREENING REASON FOR EXAM: Female, 67 years old. Routine annual screening examination. PERTINENT HISTORY: Non-contributory. TECHNIQUE: Digital bilateral breast danielito (3D mammographic acquisition) in the CC and MLO projections. 2-D mediolateral oblique (MLO) and craniocaudad (CC) views of both breasts were obtained. CAD: Full Field Digital Mammography with Computer Added Detection was performed. COMPARISON: Comparison is made with prior study dated May 26, 2022 and August 30, 2020. FINDINGS: Breast Composition: There are scattered areas of fibroglandular density. There are no dominant masses or suspicious calcifications. Small benign-appearing bilateral axillary nodes. No other significant abnormalities are identified. There has been no significant change since the prior study. BI/SCRN MAMM (CAD)W/DANIELITO BILAT IMPRESSION: Stable bilateral screening mammogram. Yearly follow-up mammogram recommended. (A) ASSESSMENT CATEGORY: BIRADS Category 2: Benign. A letter regarding these results will be sent to the patient by the facility within 30 days. Approximately 10% of breast cancers are not detected by mammography. A normal mammogram should not delay biopsy of a clinically suspicious abnormality. [id number] Electronically Signed: Gabriel Crisostomo MD at 13:21 EDT ,
== END | disposition home or self-care (01) ==
LOC: OPBI 12:12
PROVIDERS: PCP Family Medicine; Referring Provider Family Medicine; Visit Provider Family Medicine
DX: Z12.31 Encounter for screening mammogram for malignant neoplasm of breast (principal)
CPT/HCPCS: 77063; 77067

== ENCOUNTER 2024-02-04 16:52 | Emergency (ER) | payer MEDICARE, MEDICAID, SELFPAY ==
[2024-02-04 16:53] VITALS: BP 153/88; PULSE 80; RESP 20; TEMP 37; O2SAT 96; BMI 36.1
--- NOTE | 2024-02-04 17:15 | RAD_ITS ---
STUDY: X-RAY - RIGHT FOOT CLINICAL: Female, 68 years old. pain, ecchymosis TECHNIQUE: 3 view(s) of the foot. COMPARISON: None. FINDINGS: Normal tarsal bones. Mild beaking of the talar dome. Tiny plantar calcaneal spur Normal visualized subtalar, talonavicular, calcaneocuboid, tarsal and tarsometatarsal articulations. Normal metatarsi. Prominent osteoarthritic changes of the metatarsophalangeal joint of the great toe. Normal tibial and fibular sesamoid bones. Normal interphalangeal joint of the great toe. Normal phalanges of the great toe. Normal second through fifth metatarsophalangeal joints. Mild degenerative changes of the interphalangeal joints of the lesser toes. No acute fracture identified The soft tissue structures are unremarkable. RAD/Foot min 3 Views IMPRESSION: Degenerative changes. No acute fracture or dislocation Electronically Signed: Min Fontenot MD at 17:35 EST ,
[2024-02-04 18:31] VITALS: BP 149/83; PULSE 68; RESP 16; TEMP 36.6; O2SAT 97
--- NOTE | 2024-02-04 18:49 | ED.VIS.LOWEX ---
HPI History of Present Illness Chief Complaint: Lower Extremity Injury Informant: patient Narrative Narrative: 68-year-old female states that last evening she was walking down her hallway when she tripped over her throw rug. She sustained a dorsiflexion injury to the right foot. She notes purple like bruising and swelling of the second toe with swelling extending up onto the dorsum of the foot. She denies any other injuries. She had a Vicodin at home which she states did not help her pain. She notes significant sensitivity to the toe. She denies any nail injury. She denies any injuries above the level of the foot and ankle joint. [facility] Medical History Abnormal EKG Alcohol use BRANDI positive Anxiety Arthritis Arthritis Cardiology follow-up encounter Chest pain Chronic bronchitis Constipation Depression Diarrhea Diverticulitis Essential hypertension Fatty liver Former smoker Gallstone Gallstones Gastric reflux GERD (gastroesophageal reflux disease) Gout Hemorrhoids High cholesterol History of diverticulitis History of diverticulitis History of echocardiogram History of left heart catheterization (LHC) (~07/03/22) History of pain when walking History of stress test Hoarseness Hypertension Hypertension Mixed hyperlipidemia Osteoarthritis Post-menopausal Septic arthritis of interphalangeal joint of toe of right foot Shortness of breath on exertion Smoker SOB (shortness of breath) Venous stasis dermatitis Wears dentures Home Medications duloxetine 60 mg capsule,delayed release 60 mg PO DAILY 03/18/14 [History Last Taken 03/30/17] cholecalciferol (vitamin D3) 125 mcg (5,000 unit) capsule 5,000 unit PO DAILY 03/26/17 [History Last Taken 03/30/17] ibuprofen 600 mg tablet 600 mg PO 4X/DAY PRN Pain #30 tabs 11/10/18 [Rx Last Taken Unknown] ezetimibe 10 mg tablet (Zetia) 10 mg PO DAILY 09/15/19 [History Last Taken Unknown] lorazepam 1 mg tablet 1 mg PO PRN PRN anxiety 09/11/21 [History Last Taken Unknown] pantoprazole 20 mg tablet,delayed release 40 mg PO DAILY 09/11/21 [History Last Taken 07/03/22] colchicine 0.6 mg tablet 0.6 mg PO BID PRN GOUT 05/08/22 [History Last Taken Unknown] aspirin 81 mg tablet,delayed release (Adult Low Dose Aspirin) 81 mg PO DAILY 06/11/22 [History Last Taken 07/03/22] cyanocobalamin (vitamin B-12) 1,000 mcg/mL injection solution 1,000 mcg IM QMONTH 06/19/22 [History Last Taken Unknown] losartan 50 mg tablet 50 mg PO BID 06/19/22 [History Last Taken 07/03/22] linaclotide 72 mcg capsule (Linzess) 72 mcg PO DAILY 10/12/22 [History Last Taken Unknown] carvedilol 12.5 mg tablet 12.5 mg PO BID #60 tabs 12/10/22 [Rx Last Taken Unknown] allopurinol 100 mg tablet 100 mg PO DAILY 04/24/23 [History Last Taken Unknown] apple cider vinegar 500 mg tablet 500 mg PO DAILY 04/24/23 [History Last Taken Unknown] escitalopram oxalate 5 mg tablet 5 mg PO DAILY 04/24/23 [History Last Taken Unknown] lactobacillus combination no.9 4 billion cell capsule (Adult 50 Plus Probiotic) 4,000 mmu cells PO DAILY 04/24/23 [History Last Taken Unknown] evolocumab 140 mg/mL subcutaneous pen injector ([employer]) 140 mg subcut Q2W CHOLESTEROL #2 mL 05/22/23 [Rx Last Taken Unknown] oxycodone-acetaminophen 5 mg-325 mg tablet 1 tab PO Q6H PRN PRN Pain 3 days #12 TABLETS 02/04/24 [Rx Last Taken Unknown] Allergy/AdvReac Type Severity Reaction Status Date / Time amoxicillin trihydrate Allergy Diarrhea Verified 02/04/24 16:53 [From Augmentin] codeine Allergy Hives Verified 02/04/24 16:53 latex Allergy Rash Verified 02/04/24 16:53 potassium clavulanate Allergy Diarrhea Verified 02/04/24 16:53 [From Augmentin] bupropion [From Wellbutrin] AdvReac Intermediate ANGRY,IRRIT Verified 02/04/24 16:53 ABLE desvenlafaxine [From Pristiq] AdvReac Unknown unknown Verified 02/04/24 16:53 niacin AdvReac Other Verified 02/04/24 16:53 Pzshygp-MFR-TsH Reductase AdvReac Other Verified 02/04/24 16:53 Inhibitor [Ghcfijv-Bdu-Fve Reductase Inhibitor] Family History Mother Colon cancer CVA (cerebral vascular accident) Father Heart disease Hypertension High cholesterol Surgical History History of bilateral knee replacement History of cholecystectomy (~09/2021) History of esophagogastroduodenoscopy (EGD) (~09/16/19) History of hysterectomy with oophorectomy Hx of colonoscopy Hx of foot surgery Hx of left cataract extraction Hx of right cataract extraction Hx of rotator cuff surgery Hx of shoulder surgery S/P laparoscopic cholecystectomy Social History Smoking Status: Former smoker how long ago did patient quit smokin months ago second hand exposure: No quit status: has quit before alcohol intake: current alcohol intake frequency: a few times a month substance use type: does not use caffeine: Yes Type: coffee Number of servings: 1 and tea Number of servings: 1 what type of physical activity do you participate in: none frequency: does not exercise ROS ROS ED Constitutional Constitutional ED: Denies chills or weight loss Eyes Eyes: Denies change in vision or diplopia ENT ENT ED: Denies ear pain, rhinorrhea or sore throat Cardiovascular Cardiovascular: Denies chest pain, orthopnea, palpitations or racing heartbeat Respiratory/Chest Respiratory/Chest: Denies cough, dyspnea or orthopnea Gastrointestinal Gastrointestinal: Denies abdominal pain, diarrhea, nausea or vomiting Genitourinary Genitourinary ED: Denies dysuria, hematuria or urinary frequency Musculoskeletal Musculoskeletal: Reports other Details: Neck pain chronic Right foot toe pain swelling bruising ; Denies arthralgias or myalgias Integumentary Denies abscess or rash Neurologic Neurologic: Denies headache(s) or weakness Psychiatric Psychiatric: Denies anxiety, depression, suicidal ideation or suicidal thoughts Endocrine Endocrinology: Denies polydipsia, polyphagia or polyuria Allergic/Immunologic Allergic/Immunologic ED: Denies mouth swelling, tongue swelling or urticaria EXAM Physical Exam Const Vital Signs: 02/04/24 16:53 02/04/24 18:31 Temperature 98.6 F 97.8 F Temperature Source Temporal Temporal Pulse Rate 80 68 Respiratory Rate 20 H 16 Blood Pressure 153/88 H 149/83 H Blood Pressure Mean 109 105 Pulse Ox 96 97 Oxygen Delivery Method Room Air Room Air Positive well nourished and well developed General Appearance ED: well developed HEENT Reports normocephalic, head/scalp atraumatic and moist mucous membranes Eyes PERRL and EOMs intact bilaterally Neck no lymphadenopathy, supple and no JVD Resp normal respiratory effort and clear to auscultation bilaterally Cardio regular rate, regular rhythm and no murmurs GI normal to inspection, nondistended, normoactive bowel sounds and non-tender Palpation: soft Back/Spine no CVA tenderness and normal ROM Extremity Extremity Narrative: The right second toe demonstrates purple ecchymosis and swelling and tenderness along the digit. There does not appear to be any nail injury or subungual hematoma. There is swelling along the dorsum of the foot particularly distal. Mild tenderness. The ankle appears uninjured. Neurovascular intact distal General Extremety ED: Negative for edema General Extremity: Negative for edema Neuro oriented x3 and CN's II-XII intact bilaterally Sensorium / Orientation: alert Motor Exam: strength 5/5 throughout Psych mental status grossly normal Mood & Affect: Negative for depressed or tearful Skin no rashes or lesions noted and no wounds MDM MDM MDM Narrative Medical decision making narrative: My independent interpretation of the plain films is arthritic changes particularly of the toes. There may be a subtle fracture line along the part of the arthritic bone of the proximal distal phalanx second toe. Does not appear displaced. Otherwise I do not see an obvious fracture. Patiently placed in Jacob wrap to support the midfoot and metatarsals as well as a postop shoe to avoid having to put her foot into a toebox. I will write for a few Percocet. Follow-up primary care 10 to 14 days Radiography Diagnostic Testing: Clinical Impression(s) from Imaging Studies Foot X-Ray 02/04/24 17:15 IMPRESSION: Degenerative changes. No acute fracture or dislocation Electronically Signed: Min Fontenot MD at 17:35 EST , Discharge Plan Triage Chief Complaint: Lower Extremity Injury ED Provider: Ez Pearson Dx/Rx/DC Orders Clinical Impression: Fracture of right toe, Right foot sprain Instructions: ED Foot Sprain, ED Fracture, Toe, Closed Prescriptions: New oxycodone-acetaminophen [oxycodone-acetaminophen] 5-325 mg tablet 1 tab PO Q6H PRN PRN (Reason: Pain) 3 Days Qty: 12 0RF No Action ezetimibe [Zetia] 10 mg tablet 10 mg PO DAILY pantoprazole 20 mg tablet,delayed release (DR/EC) 40 mg PO DAILY lorazepam 1 mg tablet 1 mg PO PRN PRN (Reason: anxiety) colchicine 0.6 mg tablet 0.6 mg PO BID PRN (Reason: GOUT) cyanocobalamin (vitamin B-12) 1,000 mcg/mL solution 1,000 mcg IM QMONTH aspirin [Adult Low Dose Aspirin] 81 mg tablet,delayed release (DR/EC) 81 mg PO DAILY Linzess 72 mcg capsule 72 mcg PO DAILY allopurinol 100 mg tablet 100 mg PO DAILY Patient Comments: TAKE 1 TABLET BY MOUTH ONCE DAILY apple cider vinegar 500 mg tablet 500 mg PO DAILY escitalopram oxalate 5 mg tablet 5 mg PO DAILY Patient Comments: TAKE 1 TABLET BY MOUTH ONCE DAILY Adult 50 Plus Probiotic 4 billion cell capsule 4,000 mmu cells PO DAILY Rx Instructions: administer with a meal duloxetine 60 MG capsule 60 mg PO DAILY cholecalciferol (vitamin D3) 5,000 UNIT capsule 5,000 unit PO DAILY ibuprofen 600 MG tablet 600 mg PO 4X/DAY PRN (Reason: Pain) Qty: 30 0RF losartan 50 mg tablet 50 mg PO BID carvedilol 12.5 mg tablet 12.5 mg PO BID Qty: 60 11RF Rx Instructions: must administer with a meal/food Repatha SureClick 140 mg/mL pen injector 140 mg subcut Q2W Qty: 2 12RF Primary Care Provider: Ashli Snowden Referrals: Ashli Snowden DO [Primary Care Provider] - 10-14 Days if not better Disposition Disposition: Home, Self Care
[2024-02-04 18:57] VITALS: BP 133/85; PULSE 68; RESP 16; TEMP 36.6; O2SAT 96
== END 2024-02-04 19:02 | disposition home or self-care (01) ==
PROVIDERS: Emergency Provider Emergency Medicine; PCP Family Medicine; Visit Provider Emergency Medicine
DX: S92.534A Nondisplaced fracture of distal phalanx of right lesser toe(s), initial encounter for closed fracture (principal); S93.601A Unspecified sprain of right foot, initial encounter; W22.8XXA Striking against or struck by other objects, initial encounter; Y93.01 Activity, walking, marching and hiking; Y99.8 Other external cause status; Y92.009 Unspecified place in unspecified non-institutional (private) residence as the place of occurrence of the external cause; I10 Essential (primary) hypertension; E78.2 Mixed hyperlipidemia; Z79.82 Long term (current) use of aspirin; Z79.899 Other long term (current) drug therapy; Z87.891 Personal history of nicotine dependence
CPT/HCPCS: 73630; 99282

== ENCOUNTER → 2024-02-20 | Outpatient (CLI) | payer MEDICARE, MEDICAID, SELFPAY ==
--- NOTE | 2024-02-20 16:02 | CT_ITS ---
STUDY: CT FACIAL BONES WITHOUT CONTRAST REASON FOR EXAM: Female, 68 years old. CHRONIC SINUSITIS RADIATION DOSAGE (If Supplied By Facility): CTDIvol = ( 33.06 ) mGy, DLP = ( 809.06 ) mGycm TECHNIQUE: The patient was scanned in a multi detector CT scanner. Sagittal and coronal images were reconstructed. Individualized dose optimization techniques were used for this CT. COMPARISON: None. FINDINGS: Normal soft tissue structures. Normal orbital genao and orbital contents. Normal nasal bones and anterior nasal spine. Normal facial bones. There is no demonstrated fracture. There is a 9.5 mm retention cyst or polyp along the inferior lateral wall of the right maxillary sinus. CT/Sinus/Facial Bone IMPRESSION: 9.5 mm retention cyst or polyp along the inferior lateral wall of the right maxillary sinus. Electronically Signed: Gabriel Crisostomo MD at 12:33 EDT ,
== END | disposition home or self-care (01) ==
LOC: CT 15:54
PROVIDERS: PCP Family Medicine; Referring Provider Family Medicine; Visit Provider Family Medicine
DX: J32.9 Chronic sinusitis, unspecified (principal)
CPT/HCPCS: 70486

== ENCOUNTER → 2024-04-02 | Outpatient (CLI) | payer MEDICARE, MEDICAID, SELFPAY | END | disposition home or self-care (01) | LOC: LABSPEC 14:58 | PROVIDERS: PCP Family Medicine; Referring Provider Otolaryngology; Visit Provider Otolaryngology | DX: J32.8 Other chronic sinusitis (principal) | CPT/HCPCS: 87070; 87205 ==

== ENCOUNTER → 2024-04-29 | Outpatient (CLI) | payer MEDICARE, MEDICAID, SELFPAY ==
[2024-04-29 11:12] LABS: AST(SGOT) 15 U/L (15-37); Alanine Aminotransfer ALT/SGPT 20 U/L (13-56); Albumin, Serum 3.2 g/dL (3.2-5.0); Alkaline Phosphatase 88 U/L (45-117); Bilirubin, Direct 0.09 mg/dL (0.00-0.30); Cholesterol 132 mg/dL (200); Globulin 3.3 g/dL (2.2-4.2); High Density Lipoprotein 37 mg/dL; Protein, Total 6.5 g/dL (6.4-8.2); Triglycerides 199 mg/dL; Very Low Density Lipoprotein 40 mg/dL (5-40)
== END | disposition home or self-care (01) ==
LOC: LAB 09:32
PROVIDERS: PCP Family Medicine; Referring Provider Physician Assistant Medical; Visit Provider Physician Assistant Medical
DX: E78.2 Mixed hyperlipidemia (principal); I10 Essential (primary) hypertension
CPT/HCPCS: 36415; 80061; 80076

== ENCOUNTER → 2024-06-12 | Outpatient (CLI) | payer MEDICARE, MEDICAID, SELFPAY ==
--- NOTE | 2024-06-12 09:23 | RAD_ITS ---
STUDY: X-RAY - CERVICAL SPINE REASON FOR EXAM: Female, 69 years old. NECK PAIN TECHNIQUE: 5 view(s) of the cervical spine were obtained. COMPARISON: None FINDINGS: Normal anterior atlantoaxial articulation. Normal odontoid process. Normal cervical lordosis. There is multi-level endplate spondylosis. Normal disc space heights. Normal visualized intervertebral neuroforamina. The soft tissue structures are unremarkable. RAD/Cerv Spine 4 or 5 Views IMPRESSION: Mild degenerative disc disease lower cervical spine. MRI may be useful. Electronically Signed: Rayo Johnson MD at 10:23 EDT ,
== END | disposition home or self-care (01) ==
LOC: MTRAD 09:20
PROVIDERS: PCP Family Medicine; Referring Provider Family Medicine; Visit Provider Family Medicine
DX: M54.2 Cervicalgia (principal)
CPT/HCPCS: 72050

== ENCOUNTER → 2024-07-11 | Outpatient (CLI) | payer MEDICARE, MEDICAID, SELFPAY ==
--- NOTE | 2024-07-11 08:03 | MRI_ITS ---
STUDY: MRI CERVICAL SPINE WITHOUT CONTRAST REASON FOR EXAM: Female, 69 years old. CERVICAL RADICULOPATHY persistent neck and head pain x 10months. c/o pain neck, rt ear, back of head and shoulder prior xr TECHNIQUE: Standardized fat and water weighted pulse sequences were obtained in the sagittal and axial planes. COMPARISON: X-ray of the cervical spine dated June 12, 2024 FINDINGS: Normal foramen magnum and brainstem-cervical cord junction. Normal craniovertebral junction. Normal anterior atlantoaxial articulation. Normal odontoid process. Normal cervical lordosis. Normal vertebral bodies and posterior osseous elements. C2-3: Normal endplates. Diffuse disc desiccation. Normal disc height and morphology. Normal central canal and left neural foramen. Moderate to severe right foraminal stenosis with nerve root compression due to significant facet joint hypertrophy. C3-4: Normal endplates. Diffuse disc desiccation. Normal disc height and morphology. Normal central canal. Severe right foraminal stenosis secondary to severe right facet joint hypertrophy causing nerve root compression. Moderate left foraminal stenosis with nerve root compression due to combined uncovertebral facet joint hypertrophy. C4-5: Diffuse disc desiccation and mild anterior disc space narrowing and bulging with mild endplate spurring. Normal central canal. Moderate right and severe left foraminal stenosis with nerve root compression due to uncovertebral hypertrophy and on the left severe facet joint hypertrophy. C5-6: Diffuse disc desiccation with mild disc space narrowing and annular bulging. Mild anterior endplate spurring. Normal central canal and left neural foramen. Moderate right foraminal stenosis with nerve root compression due to uncovertebral hypertrophy. C6-7: Normal endplates. Diffuse disc desiccation with mild posterior disc space narrowing but no bulging or herniation. Severe left foraminal stenosis with nerve root compression due to uncovertebral and significant facet joint hypertrophy. Moderate right foraminal stenosis with nerve root compression. Normal central canal. C7-T1: Normal endplates. Normal disc height, signal and morphology. Normal central canal and intervertebral neural foramina. Normal cervical cord. There is no demonstrated cervical cord syrinx cavity. Normal visualized soft tissue structures. MRI/Spine Cervical (Routine) IMPRESSION: 1. Multilevel degenerative changes, as described above. Electronically Signed: Gianni Medeiros MD at 13:50 EDT ,
== END | disposition home or self-care (01) ==
LOC: MRI 07:59
PROVIDERS: PCP Family Medicine; Referring Provider Family Medicine; Visit Provider Family Medicine
DX: M47.22 Other spondylosis with radiculopathy, cervical region (principal); M54.2 Cervicalgia
CPT/HCPCS: 72141

== ENCOUNTER → 2024-10-12 | Outpatient (CLI) | payer MEDICARE, MEDICAID, SELFPAY ==
[2024-10-12 10:15] LABS: Absolute Lymphocyte Count 3.23 X10^3/uL (0.83-4.51); Absolute Neutrophil Count 5.5 X10^3/uL (2.0-7.7); Basophil# 0.05 X10^3/uL; Basophil% 0.5 % (0-1); Eosinophil# 0.22 X10^3/uL; Eosinophils% 2.3 % (0-5); Hematocrit 42.6 % (37-47); Hemoglobin 14.1 g/dL (12.0-15.0); Lymphocyte # 3.23 X10^3/ul (0.83-4.51); Mean Corp Hgb Conc 33.1 g/dL (32-36); Mean Corpuscular Hgb 31.8 pg (27.0-32.0); Mean Corpuscular Volume 95.9 fL (81-99); Mean Platelet Vol. 11.9 fl (6.2-12.0); Monocyte# 0.42 X10^3/uL; Monocyte% 4.4 % (0-10); NRBC Flagged by Analyzer 0 % (0-5); Neutrophil # 5.49 X10^3/uL (2.7-7.7); Neutrophil % 57.7 % (47-70); Platelet Count 201 K/mm3 (150-450); RBC Distribution Width CV 14.5 % (11.6-14.6); RBC Distribution Width SD 50.1 fl (35.1-43.9); Red Blood Count 4.44 M/mm3 (4.2-5.4); White Blood Count 9.5 K/mm3 (4.4-11.0)
[2024-10-12 10:32] LABS: Hemoglobin A1c 7.7 % (3.8-5.6)
[2024-10-12 10:34] LABS: AST(SGOT) 12 U/L (15-37); Alanine Aminotransfer ALT/SGPT 23 U/L (13-56); Albumin, Serum 3.2 g/dL (3.2-5.0); Alkaline Phosphatase 86 U/L (45-117); Anion Gap 8 (5-15); BUN 11 mg/dL (7-18); BUN/Creat Ratio 10.7 RATIO (10-20); Calcium,Total 8.7 mg/dL (8.5-10.1); Chloride 102 mmol/L (98-107); Cholesterol 140 mg/dL (200); Creatinine, Serum 1.03 mg/dL (0.55-1.02); EST Glomerular Filtration Rate 56 mL/min (>60); Est Glom Filt Rate - Afr Amer 68 mL/min (>60); Globulin 3.3 g/dL (2.2-4.2); Glucose 149 mg/dL (74-106); High Density Lipoprotein 43 mg/dL; Potassium 3.7 mmol/L (3.5-5.1); Protein, Total 6.5 g/dL (6.4-8.2); Sodium Level 140 mmol/L (136-145); Triglycerides 272 mg/dL; Very Low Density Lipoprotein 54 mg/dL (5-40)
== END | disposition home or self-care (01) ==
PROVIDERS: PCP Family Medicine; Referring Provider Family Medicine; Visit Provider Family Medicine
DX: I10 Essential (primary) hypertension (principal); E11.9 Type 2 diabetes mellitus without complications; Z51.81 Encounter for therapeutic drug level monitoring
CPT/HCPCS: 36415; 80053; 80061; 83036; 85025

== ENCOUNTER → 2025-02-23 | Outpatient (CLI) | payer MEDICARE, MEDICAID, SELFPAY ==
--- NOTE | 2025-02-23 13:34 | BI_ITS ---
EXAM: PROCEDURE: MA Mammogram Digital Screen CLINICAL HISTORY: Screening COMPARISON: Mammogram study dated 05/07/2023 TECHNIQUE: A bilateral screening mammogram was obtained with MLO and CC views of both breasts with digital breast tomosynthesis. BREAST CANCER RISK ASSESSMENT: Does not appear to have been calculated. FINDINGS: No suspicious masses, suspicious calcifications or other suspicious mammogram findings are seen in either breast. Benign-appearing round microcalcifications are seen in both breasts. A stable benign-appearing intramammary lymph node in the superior outer aspect of the left breast is noted. CONCLUSION: Right Breast: BI-RADS category 2, benign findings Left Breast: BI-RADS category 2, benign findings Breast Composition: The breasts are almost entirely fatty. Recommendation: Annual screening mammography Thank you for referring your patient to the [facility], if you have any questions, please call us at the performing site listed at the top of the report. [facility] , [facility] , [facility] and [facility] . Reading Location: [id number]
== END | disposition home or self-care (01) ==
LOC: OPBI 13:32
PROVIDERS: PCP Family Medicine; Referring Provider Family Medicine; Visit Provider Family Medicine
DX: Z12.31 Encounter for screening mammogram for malignant neoplasm of breast (principal)
CPT/HCPCS: 77063; 77067

== ENCOUNTER 2025-03-22 21:52 | Emergency (ER) | payer MEDICARE, MEDICAID, SELFPAY ==
[2025-03-22 21:53] VITALS: BP 162/85; PULSE 83; RESP 16; TEMP 36.6; O2SAT 97; BMI 39.6
--- NOTE | 2025-03-22 22:00 | EX.ED.DYSGE1 ---
HPI History of Present Illness Chief Complaint: Lower Extremity Injury [facility] Medical History Mild CAD Post-menopausal Arthritis Fatty liver High cholesterol History of diverticulitis Former smoker History of pain when walking Hypertension History of echocardiogram Cardiology follow-up encounter History of left heart catheterization (LHC) (~07/03/22) Abnormal EKG Chest pain Mixed hyperlipidemia Essential hypertension Wears dentures Depression Anxiety Alcohol use Gout History of diverticulitis Gastric reflux Smoker Shortness of breath on exertion Hoarseness History of stress test Gallstone Gallstones Hemorrhoids Constipation Diarrhea SOB (shortness of breath) Arthritis Venous stasis dermatitis BRANDI positive Osteoarthritis Septic arthritis of interphalangeal joint of toe of right foot Diverticulitis Hypertension GERD (gastroesophageal reflux disease) Chronic bronchitis Home Medications ?Medication ?Instructions ?Recorded ?Last Taken ?Type cholecalciferol (vitamin D3) 125 5,000 unit PO DAILY 03/26/17 03/30/17 History mcg (5,000 unit) capsule ibuprofen 600 mg tablet 600 mg PO 4X/DAY PRN Pain #30 tabs 11/10/18 Unknown Rx ezetimibe 10 mg tablet (Zetia) 10 mg PO DAILY 09/15/19 Unknown History lorazepam 1 mg tablet 1 mg PO PRN PRN anxiety 09/11/21 Unknown History pantoprazole 20 mg tablet,delayed 40 mg PO DAILY 09/11/21 07/03/22 History release colchicine 0.6 mg tablet 0.6 mg PO BID PRN GOUT 05/08/22 Unknown History aspirin 81 mg tablet,delayed 81 mg PO DAILY 06/11/22 07/03/22 History release (Adult Low Dose Aspirin) cyanocobalamin (vitamin B-12) 1,000 mcg IM QMONTH 06/19/22 Unknown History 1,000 mcg/mL injection solution carvedilol 12.5 mg tablet 12.5 mg PO BID #60 tabs 12/10/22 Unknown Rx apple cider vinegar 500 mg tablet 500 mg PO DAILY 04/24/23 Unknown History lactobacillus combination no.9 4 4,000 mmu cells PO DAILY 04/24/23 Unknown History billion cell capsule (Adult 50 Plus Probiotic) oxycodone-acetaminophen 5 mg-325 1 tab PO Q6H PRN PRN Pain 3 days 02/04/24 Unknown Rx mg tablet #12 TABLETS amlodipine 2.5 mg tablet (Norvasc) 2.5 mg PO DAILY #30 tabs 04/29/24 Unknown Rx evolocumab 140 mg/mL subcutaneous 140 mg subcut Q2W CHOLESTEROL #2 mL 05/11/24 Unknown Rx pen injector (Hemalatha Awan) escitalopram oxalate 10 mg tablet 10 mg PO QDAY 01/05/25 Unknown History fluoxetine 60 mg tablet 60 mg PO QAM 01/05/25 Unknown History losartan 50 mg tablet 100 mg PO ONCE 01/05/25 Unknown History allopurinol 300 mg tablet 300 mg PO DAILY 03/22/25 Unknown History duloxetine 20 mg capsule,delayed 20 mg PO DAILY 03/22/25 Unknown History release duloxetine 60 mg capsule,delayed 60 mg PO DAILY 03/22/25 Unknown History release gabapentin 300 mg capsule 300 mg PO BID 03/22/25 Unknown History gabapentin 400 mg capsule 400 mg PO TID 03/22/25 Unknown History glipizide 2.5 mg tablet 2.5 mg PO DAILY 03/22/25 Unknown History Allergy/AdvReac Type Severity Reaction Status Date / Time amoxicillin trihydrate (From Allergy Diarrhea Verified 03/22/25 21:55 Augmentin) codeine Allergy Hives Verified 03/22/25 21:55 latex Allergy Rash Verified 03/22/25 21:55 potassium clavulanate (From Allergy Diarrhea Verified 03/22/25 21:55 Augmentin) bupropion (From Wellbutrin) AdvReac Intermediate ANGRY,IRRIT Verified 03/22/25 21:55 ABLE desvenlafaxine (From Pristiq) AdvReac Unknown unknown Verified 03/22/25 21:55 niacin AdvReac Other Verified 03/22/25 21:55 Naxcplb-SXA-OpM Reductase AdvReac Other Verified 03/22/25 21:55 Inhibitor (Qjucxvd-Vig-Rto Reductase Inhibitor) Family History Mother Colon cancer CVA (cerebral vascular accident) Father Heart disease Hypertension High cholesterol Surgical History History of hysterectomy with oophorectomy Hx of colonoscopy S/P laparoscopic cholecystectomy History of cholecystectomy (~09/2021) Hx of right cataract extraction Hx of left cataract extraction Hx of rotator cuff surgery History of esophagogastroduodenoscopy (EGD) (~09/16/19) Hx of foot surgery History of bilateral knee replacement Hx of shoulder surgery Social History Smoking Status: Former smoker how long ago did patient quit smokin months ago second hand exposure: No quit status: has quit before alcohol intake: current alcohol intake frequency: a few times a month substance use type: does not use caffeine: Yes Type: coffee Number of servings: 1 and tea Number of servings: 1 what type of physical activity do you participate in: none frequency: does not exercise EXAM Physical Exam Const Vital Signs: 03/22/25 21:53 Temperature 97.8 F Temperature Source Oral Pulse Rate 83 Respiratory Rate 16 Blood Pressure 162/85 H Blood Pressure Mean 110 Pulse Ox 97 Oxygen Delivery Method Room Air MDM MDM MDM Narrative Medical decision making narrative: HISTORY OF PRESENT ILLNESS: Chief complaint: Left knee pain 69-year-old female presents with left knee injury. Notes she tripped and fell into her left knee. No head trauma loss of consciousness. no ankle or hip pain. Notes I fell directly onto my left knee is concerned because of the history of knee replacement REVIEW OF SYSTEMS: Pertinent positives: Knee pain Pertinent negatives: Pain, ankle pain PHYSICAL EXAM: Nursing triage notes reviewed, Vital signs reviewed Constitutional: please see mdm Extremities:, Bruising noted to anterior left knee, no gross deformities or open fractures noted Neuro: Intact sensation L1-S1 dermatomal distributions. Intact 5/5 strength in hip flexion (T12-L3). Knee extension (L2-L4). Ankle dorsiflexion (L4-L5). Ankle plantar flexion (S1). Great toe extension (L5). 2+ patellar and Achilles DTRs. Skin: Bruising noted to anterior left knee MEDICAL DECISION MAKING: Chief Complaint: please see HPI External records reviewed: Factors affecting care: Left TKR Social determinants of health: none History obtained from others: none Consults: none [facility] [place] Narrative: The patient was initially hemodynamically stable, afebrile and nontoxic-appearing. Exam with bruising to left knee. I considered the following differential diagnosis: Left knee fracture, dislocation, contusion ALL IMAGES (IF OBTAINED) HAVE BEEN PERSONALLY REVIEWED AND INTERPRETED BY MYSELF. X-ray was obtained and read, reviewed and interpreted by myself. X-ray of the left knee showed no evidence of obvious fracture or dislocation. Radiology agreed my interpretation Patient likely some from a kidney contusion. Patient's appropriate discharge home The patient and/or family, caregivers express understanding. The patient and/or family, caregivers agrees with the plan. Shared decision making: I will have a discussion with the patient and or visitors regarding risk/benefits of further testing or admission. They will be made aware of of the risk/benefits inherent in this decision they will be given the opportunity to voice understanding. Total critical care time today provided was at least 0 minutes. This excludes separately billable procedures. Critical care time (if documented) is secondary to the patient having high probability of clinically significant/life threatening deterioration in the patient's condition which required my urgent intervention. Impression: 1. Acute left knee pain Dispo: This note was generated with [employer] dictation software. It may contain incorrect words, spelling, and punctuation that were not noted in review of the chart prior to signing. Radiography Diagnostic Testing: Clinical Impression(s) from Imaging Studies Knee X-Ray 03/22/25 22:15 IMPRESSION: No acute fracture or dislocation. Status post total knee arthroplasty. Reading Location: [facility] Discharge Plan Triage Chief Complaint: Lower Extremity Injury ED Provider: Glen Llamas Dx/Rx/DC Orders Prescriptions: No Action ezetimibe [Zetia] 10 mg tablet 10 mg PO DAILY pantoprazole 20 mg tablet,delayed release (DR/EC) 40 mg PO DAILY lorazepam 1 mg tablet 1 mg PO PRN PRN (Reason: anxiety) colchicine 0.6 mg tablet 0.6 mg PO BID PRN (Reason: GOUT) cyanocobalamin (vitamin B-12) 1,000 mcg/mL solution 1,000 mcg IM QMONTH aspirin [Adult Low Dose Aspirin] 81 mg tablet,delayed release (DR/EC) 81 mg PO DAILY apple cider vinegar 500 mg tablet 500 mg PO DAILY Adult 50 Plus Probiotic 4 billion cell capsule 4,000 mmu cells PO DAILY Rx Instructions: administer with a meal amlodipine [Norvasc] 2.5 mg tablet 2.5 mg PO DAILY Qty: 30 11RF fluoxetine 60 mg tablet 60 mg PO QAM escitalopram oxalate 10 mg tablet 10 mg PO QDAY cholecalciferol (vitamin D3) 5,000 UNIT capsule 5,000 unit PO DAILY ibuprofen 600 MG tablet 600 mg PO 4X/DAY PRN (Reason: Pain) Qty: 30 0RF losartan 50 mg tablet 100 mg PO ONCE oxycodone-acetaminophen [oxycodone-acetaminophen] 5-325 mg tablet 1 tab PO Q6H PRN PRN (Reason: Pain) 3 Days Qty: 12 0RF gabapentin 400 mg capsule 400 mg PO TID gabapentin 300 mg capsule 300 mg PO BID allopurinol 300 mg tablet 300 mg PO DAILY duloxetine 20 mg capsule,delayed release(DR/EC) 20 mg PO DAILY duloxetine 60 mg capsule,delayed release(DR/EC) 60 mg PO DAILY glipizide 2.5 mg tablet 2.5 mg PO DAILY carvedilol 12.5 mg tablet 12.5 mg PO BID Qty: 60 11RF Rx Instructions: must administer with a meal/food Repatha SureClick 140 mg/mL pen injector 140 mg subcut Q2W Qty: 2 11RF Primary Care Provider: Ashli Snowden Referrals: Ashli Snowden DO [Primary Care Provider] - Print Language: Slovenian
--- NOTE | 2025-03-22 22:15 | RAD_ITS ---
PROCEDURE: KNEE 3 VIEWS 03/22/2025 REASON FOR EXAM: FALL, LEFT KNEE PAIN TECHNIQUE: 3 views of the left knee FINDINGS: Bones: No acute fracture or dislocation. Joints: Status post total knee arthroplasty. The prosthesis appears located. No osteolysis to suggest loosening. Effusion: No effusion. Soft tissues: Soft tissues are unremarkable. Other: RAD/Knee 3 Views IMPRESSION: No acute fracture or dislocation. Status post total knee arthroplasty. Reading Location: [id number]
== END 2025-03-22 22:50 | disposition home or self-care (01) ==
PROVIDERS: Emergency Provider Emergency Medicine; PCP Family Medicine; Referring Provider Emergency Medicine; Visit Provider Emergency Medicine
DX: M25.562 Pain in left knee (principal); Z87.891 Personal history of nicotine dependence; I10 Essential (primary) hypertension; I25.10 Atherosclerotic heart disease of native coronary artery without angina pectoris; E78.2 Mixed hyperlipidemia; F41.9 Anxiety disorder, unspecified; Z79.899 Other long term (current) drug therapy; F32.A Depression, unspecified; Z90.710 Acquired absence of both cervix and uterus; Z96.653 Presence of artificial knee joint, bilateral; W01.10XA Fall on same level from slipping, tripping and stumbling with subsequent striking against unspecified object, initial encounter
CPT/HCPCS: 73562; 99282

== ENCOUNTER → 2025-04-22 | Outpatient (CLI) | payer MEDICARE, MEDICAID, SELFPAY ==
--- NOTE | 2025-04-22 10:22 | RAD_ITS ---
PROCEDURE: L/S SPINE MIN 4 VIEWS 04/22/2025 REASON FOR EXAM: BACK PAIN, RECENT FALL TECHNIQUE: Four views, AP, bilateral oblique and lateral COMPARISON: None available FINDINGS: 5 [id number]-rsl-agmtxzn lumbar vertebral body types identified. No fracture. The disc spaces appear within limits. Mild anterolisthesis, grade 1, L4 on L5. Marked appearing bilateral lower lumbar facet degenerative changes. RAD/L/S Spine Min 4 Views IMPRESSION: Lower lumbar spondylosis and spondylolisthesis as above. Reading Location: [id number]
--- NOTE | 2025-04-22 10:22 | RAD_ITS ---
PROCEDURE: THORACIC SPINE 2 VIEWS 04/22/2025 REASON FOR EXAM: BACK PAIN, RECENT FALL TECHNIQUE: Two views thoracic spine COMPARISON: None available FINDINGS: 12 rib-bearing thoracic vertebral body types identified. No fracture or malalignment seen. The disc spaces appear within limits. Yiav-xgamswr-hjyk-right patchy peripheral lower lung opacities are seen correlate for possible inflammatory/infectious process. No evidence of pleural effusion. RAD/Thoracic Spine 2 Views IMPRESSION: No fracture or malalignment seen. The disc spaces appear within limits. Ytjb-dbgieyz-ughr-right patchy peripheral lower lung opacities are seen correla te for possible inflammatory/infectious process, clinically correlate. No evidence of pleural effusion. Reading Location: [id number]
== END | disposition home or self-care (01) ==
LOC: MTRAD 10:20
PROVIDERS: PCP Family Medicine; Referring Provider Family Medicine; Visit Provider Family Medicine
DX: M54.6 Pain in thoracic spine (principal); M54.50 Low back pain, unspecified; W19.XXXA Unspecified fall, initial encounter
CPT/HCPCS: 72070; 72110

== ENCOUNTER 2025-06-11 10:30 | Outpatient (RCR) | payer MEDICARE, MEDICAID, SELFPAY ==
--- NOTE | 2025-05-11 10:35 | HP.PTEVAL_ITS ---
Patient's Visit Information Visit Information Visit Information: SHANE CRUZ is a 69 year old F referred to Physical Therapy by FRANCISCA Nicholas with a diagnosis of LBP/Thoracic pain. Date of Evaluation: 05/11/25 Physical Therapist: NIK Nash Visit Plan Frequency: 2x /Week Duration: 2 Months Plan: 2X/ week for 8 weeks for neutral spine core stability, Postural exercises, glut strength with HEP HEP: PT, PT with hip march, LTR, Bridges Subjective Subjective: Pt just had a nerve ablation in her neck about 4 weeks ago. Her neck pain is there but she is not here for that. She still is having pain. She has back pain and her x-ray showed anterolisthesis L4/L5. She reports that she has a lot of pain, not constantly but when she is cleaning up the backyard from her dog she gets pain across the LB. She changed from a big vacuum to a stick vacuum. She reports that doing dishes for a long time she will get a big pain across her back. It seems to be more related to activity. She does not feel that she has leg weakness. She feels that her balance is off at times. She gets dizzy sometimes. Stairs: she is winded but she can do it and uses a railing. She has had some falls and still has a lump on her L knee from about 1.5 months ago cause she tripped on a rug. She had x-rays and showed a bone contusion. Sit to stand: she can get up without using her arms Pain LBP: Pain Intensity (Out of 10): 3 Objective Objective: Gait: walks with slight increase veering with decrease stride length sit to stand: able to get up without using her arms on first attempt LE MMT: R hip flex 14.4 and L 14.6 R knee ext 35.5 and L 30.1 Pt is able to heel and toe raise R hip abd 15.9 and L 15.9 Pt is able to do a full ROM bridge Pt is feel a good LB stretch with LTR Pt is able to do a good PT but struggles with hip marching and holding the PT with other leg motions Posture: sits with increase PPT and rounded shoulders Balance/Special Test Scores Oswestry Low Back Score: 19 Goals Goal 1:: I HEP Goal Time Frame: 6-8 Weeks Goal 2:: Be able to do dishes without having to put forearms down on the kitchen sink Goal Time Frame: 6-8 Weeks Goal 3:: Be able to scoop dog poop with 50% less back pain Goal Time Frame: 6-8 Weeks Rehabilitation Potential Rehabilitation Potential: Good Anticipated Interventions Patient/Client Instruction: Educate patient on: Condition and Plan of Care For the Purpose of:: To decrease pain, To increase ROM, To improve nutrient de livery to tissue, To improve muscle performance and motor function, To improve ability to perform ADL's, To increase tolerance to activity/condition/position, To improve performance and independence with ADL's, To decrease level of supervision to perform tasks, To improve ability of physical actions for home/community/work/leisure, To improve gait and locomotor functions, To improve health of tissue, To decrease soft tissue restriction and To increase flexibility/ROM Therapeutic Exercise to Include: Strength training, Postural training, Flexibilty training, Gait and locomotor training, Active ROM, Dynamic Lumbar Stabilization and Scapular Strength/Stabilization For the Purpose of:: To decrease pain, To increase ROM, To improve nutrient delivery to tissue, To improve muscle performance and motor function, To improve ability to perform ADL's, To increase tolerance to activity/condition/position, To improve performance and independence with ADL's, To decrease level of supervision to perform tasks, To improve ability of physical actions for home/community/work/leisure, To improve gait and locomotor functions, To improve health of tissue, To decrease soft tissue restriction and To increase flexibility/ROM Text: Thank you for the opportunity to evaluate your patient. For Medicare and Medicare HMO plans, please review the plan of care and approve it. It will need to be FAXED BACK to us at [phone] for Medicare purposes. For Medicare only, by signing this I certify the plan of care. Please let me know if there are questions or concerns regarding this plan of care. Physician Signature: Date:
--- NOTE | 2025-10-06 13:32 | HP.PT.NRP ---
Patient Information Patient Information: BRIDGETT CRUZ was seen in my office for initial evaluation on 05/11/25. The following Plan of Care was established for this patient: POC Established Initial Frequency: 2x /Week Initial Duration: 2 Months Anticipated Interventions Patient/Client Instruction: Educate patient on: Condition and Plan of Care For the Purpose of:: To decrease pain, To increase ROM, To improve nutrient delivery to tissue, To improve muscle performance and motor function, To improve ability to perform ADL's, To increase tolerance to activity/condition/position, To improve performance and independence with ADL's, To decrease level of supervision to perform tasks, To improve ability of physical actions for home/community/work/leisure, To improve gait and locomotor functions, To improve health of tissue, To decrease soft tissue restriction and To increase flexibility/ROM Therapeutic Exercise to Include: Strength training, Postural training, Flexibilty training, Gait and locomotor training, Active ROM, Dynamic Lumbar Stabilization and Scapular Strength/Stabilization For the Purpose of:: To decrease pain, To increase ROM, To improve nutrient delivery to tissue, To improve muscle performance and motor function, To improve ability to perform ADL's, To increase tolerance to activity/condition/position, To improve performance and independence with ADL's, To decrease level of supervision to perform tasks, To improve ability of physical actions for home/community/work/leisure, To improve gait and locomotor functions, To improve health of tissue, To decrease soft tissue restriction and To increase flexibility/ROM Last Seen Last Seen: This patient was last seen in our office 06/11/25. Pertinent comments regarding their Physical therapy will appear below: DC PT At this point I will be discontinuing this patient from physical therapy. I would be happy to see this patient again in the future if found appropriate by the physician. Thank you! Bridgett Gomez, MPT Balance/Gait/Functional tests Balance/Special Test Scores Oswestry Low Back Score: 19
== END 2025-06-11 19:00 | disposition home or self-care (01) ==
LOC: PT 10:30
PROVIDERS: PCP Family Medicine; Referring Provider Nurse Practitioner Family; Visit Provider Nurse Practitioner Family
DX: M54.50 Low back pain, unspecified (principal); M54.6 Pain in thoracic spine
CPT/HCPCS: 97110; 97162

== ENCOUNTER 2025-06-22 16:11 | Outpatient (CLI) | payer MEDICARE, MEDICAID, SELFPAY ==
--- NOTE | 2025-06-22 16:16 | MRI_ITS ---
PROCEDURE: SPINE CERVICAL (ROUTINE) 06/22/2025 REASON FOR EXAM: CERVICAL DISC DISEASE TECHNIQUE: SPINE CERVICAL (ROUTINE) Multiplanar and multisequence images were obtained without IV contrast administration. COMPARISON: 07/11/2024. FINDINGS: Vertebrae: Cervical vertebral body heights are preserved. Bone marrow signal is unremarkable. Alignment: Normal. No spondylolisthesis. Spinal Cord: Cervical spinal cord is of normal size and signal intensities. Structures at the foramen magnum are unremarkable. C2-3: Hndmh-lcvprwv-ttcn-left facet arthropathy resulting in gfititqk-tr-dzgfdn right and mild left neural foraminal stenosis. No significant central stenosis. C3-4: Facet arthropathy resulting in moderate bilateral neural foraminal stenosis. C4-5: Mild disc bulging and facet/uncovertebral hypertrophy. No significant central stenosis. Mild bilateral neural foraminal stenosis. C5-6: Disc bulging resulting in mild central stenosis. Facet and uncovertebral hypertrophy resulting in moderate right and moderate left neural foraminal stenosis.. C6-7: Facet and uncovertebral hypertrophy resulting in qggfeqgt-ky-dorsys left and mild right neural foraminal stenosis. Disc bulging resulting in mild central stenosis. C7-T1: Unremarkable MRI/Spine Cervical (Routine) IMPRESSION: Multilevel spondylosis. Reading Location: [id number]
== END 2025-06-22 23:59 | disposition home or self-care (01) ==
LOC: MRI 16:12
PROVIDERS: PCP Family Medicine; Referring Provider Family Medicine; Visit Provider Family Medicine
DX: M79.2 Neuralgia and neuritis, unspecified (principal); M47.812 Spondylosis without myelopathy or radiculopathy, cervical region
CPT/HCPCS: 72141

== ENCOUNTER → 2025-09-07 | Outpatient (CLI) | payer MEDICARE, MEDICAID, SELFPAY ==
[2025-09-07 12:04] LABS: Hematocrit 46.0 % (37-47); Hemoglobin 15.6 g/dL (12.0-15.0); Immature Granulocytes Count 0.040 X10^3/uL (0.0-0.0); Mean Corp Hgb Conc 33.9 g/dL (32-36); Mean Corpuscular Volume 92.0 fL (81-99); Mean Platelet Vol. 13.2 fl (6.2-12.0); NRBC Flagged by Analyzer 0 % (0-5); Platelet Count 176 K/mm3 (150-450); RBC Distribution Width CV 13.2 % (11.6-14.6); RBC Distribution Width SD 44.2 fl (35.1-43.9); Red Blood Count 5.00 M/mm3 (4.2-5.4); White Blood Count 7.9 K/mm3 (4.4-11.0)
[2025-09-07 12:37] LABS: Creatinine, Urine (random) 136.00 mg/dL (28.00-217.00); Microalbumin,Random Urine < 12.0 mg/L (<20 mg/L)
[2025-09-07 12:45] LABS: AST(SGOT) 17 U/L (<=31); Alanine Aminotransfer ALT/SGPT 14 U/L (<=34); Albumin, Serum 4.0 g/dL (3.4-4.8); Alkaline Phosphatase 86 U/L (35-104); Anion Gap 13 (5-15); BUN 11 mg/dL (4-19); BUN/Creat Ratio 11.6 RATIO (10-20); Calcium,Total 9.2 mg/dL (7.6-11.0); Carbon Dioxide 25.3 mmol/L (21.0-32.0); Chloride 104 mmol/L (98-108); Cholesterol 99 mg/dL (<=200); Globulin 2.8 g/dL (2.2-4.2); Glucose 110 mg/dL (70-99); Low Density Lipoprotein Calc. 25 mg/dL; Potassium 4.0 mmol/L (3.3-5.1); Triglycerides 201 mg/dL; Uric Acid 6.7 mg/dL (2.6-6.0); Very Low Density Lipoprotein 40 mg/dL (5-40); cholesterol:hdl ratio screen 2.90
[2025-09-07 12:50] LABS: Free T3 3.0 pg/mL (2.18-3.98); Vitamin D,25 Hydroxy 80.6 ng/mL (30-100)
== END | disposition home or self-care (01) ==
LOC: MTLAB 10:24
PROVIDERS: PCP Family Medicine; Referring Provider Family Medicine; Visit Provider Family Medicine
DX: Z51.81 Encounter for therapeutic drug level monitoring (principal); E11.9 Type 2 diabetes mellitus without complications; I10 Essential (primary) hypertension; E03.9 Hypothyroidism, unspecified; E55.9 Vitamin D deficiency, unspecified; M10.9 Gout, unspecified
CPT/HCPCS: 36415; 80053; 80061; 82043; 82306; 82570; 84439; 84443; 84481; 84550; 85025

== ENCOUNTER → 2025-09-20 | Outpatient (CLI) | payer MEDICARE, MEDICAID, SELFPAY ==
--- NOTE | 2025-09-20 10:38 | RAD_ITS ---
EXAM: XR Right Shoulder Complete, 2 or More Views CLINICAL INDICATION: PAIN TECHNIQUE: Two or more views of the right shoulder. COMPARISON: No relevant prior studies available. FINDINGS: BONES/JOINTS: Mild degenerative change of the acromioclavicular and glenohumeral joints. No acute fracture. No dislocation. SOFT TISSUES: Unremarkable. RAD/Shoulder min 2 Views IMPRESSION: Degenerative changes as above. Reading Location: [id number]
== END | disposition home or self-care (01) ==
PROVIDERS: PCP Family Medicine; Referring Provider Anesthesiology Pain Medicine; Visit Provider Anesthesiology Pain Medicine
DX: M19.011 Primary osteoarthritis, right shoulder (principal)
CPT/HCPCS: 73030